=== PATIENT | male | born 1950 | race Caucasian/White ===

== ENCOUNTER 2019-02-11 03:07 | Inpatient (IN) | payer MEDICARE, BC ==
[2019-02-11] MEDS ORDERED: Metoclopramide 10 MG/2 ML SDV IVPUSH ONE (03:54)
[2019-02-11] MEDS ORDERED: HYDROmorphone 1 MG/ML Syringe IVPUSH ONE (03:54)
--- NOTE | 2019-02-11 03:59 | EDM.PDOC ---
ED HPI GENERAL MEDICAL PROBLEM - General Chief Complaint: Fever Stated Complaint: FEVER/SPOT BY LEFT HIP Time Seen by Provider: 02/11/19 03:53 Source of Information: Reports: Patient, Family (spouse) History Limitations: Reports: No Limitations - History of Present Illness INITIAL COMMENTS - FREE TEXT/NARRATIVE: 68-year-old male presents to the ED in the accompaniment of his . History suggests that he started to have left buttock hip pain about 2 days ago. Last 12 hours the pain has increased immensely to the point that he has difficulty walking and has had to revert to using his walker from a cane. He cannot lie or touch his left posterior buttock hip area. Patient had a fall on December 31 with an impacted femoral neck fracture on the left side. He underwent open reduction and internal fixation by Dr. Maurice on 06 January The wound has been healing very well and he was recovering very well from the surgery with very little discomfort. Over the last 12 hours the left posterior hip area has become erythematous and extremely tender to touch. Patient is also developed fever chills and rigors with the last bout about 2 hours ago. Unable to sleep due to the pain. Current pain is 8 out of 10. Onset: Gradual Onset Date: 02/08/19 Duration: Day(s):, Constant, Getting Worse Location: Reports: Lower Extremity, Left (Left hip posterior to his) Quality: Reports: Ache ( surgical wound from total hip replacement 5 weeks ago) , Pressure, Throbbing Severity: Severe Improves with: Reports: Rest (8-9 out of 10) Worsens with: Reports: Other (Or touching the area.), Movement Context: Reports: Other. Denies: Activity, Exercise, Lifting, Sick Contact, Trauma Associated Symptoms: Reports: Cough, cough w sputum, Fever/Chills, Loss of Appetite, Malaise, Nausea/Vomiting, Weakness (Mild nausea). 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 Left Hip Pain Score (Numeric/FACES): 8 - Related Data Allergies Allergy/AdvReac Type Severity Reaction Status Date / Time morphine Allergy Difficulty Verified 02/11/19 03:49 Breathing Home Meds: Home Meds Aspirin 325 mg PO DAILY 02/11/19 [History] Gabapentin [Neurontin] 300 mg PO DAILY 02/11/19 [History] Multivitamin [Multivitamins] 1 cap PO DAILY 02/11/19 [History] Naproxen Sodium [Aleve] 220 mg PO Q6H 02/11/19 [History] Past Medical History HEENT History: Reports: Hard of Hearing, Impaired Vision Cardiovascular History: Reports: High Cholesterol Other Cardiovascular History: statins made muscle aches Respiratory History: Reports: None Gastrointestinal History: Reports: GERD, Other (See Below) Other Gastrointestinal History: Inguinal hernia Genitourinary History: Reports: Other (See Below) Other Genitourinary History: prostate cancer- had surgery- clear Musculoskeletal History: Reports: Other (See Below) Other Musculoskeletal History: back surgery; 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 Neurological History: Reports: Other (See Below) (left foot drop--since lumbar spine surgery in May 2018.) Oncologic (Cancer) History: Reports: Prostate - Past Surgical History HEENT Surgical History: Reports: Naso-Sinus Surgery GI Surgical History: Reports: Hernia, Inguinal Other Male Surgeries/Procedures: prostate cancer Neurological Surgical History: Reports: Other (See Below) (back surgery) Musculoskeletal Surgical History: Reports: Shoulder Surgery, Other (See Below) ( 2 ring finger amputations and ankle) Social & Family History - Family History Cardiac: Reports: Hypertension (Both parents had HTN) Other Cardiac Family History: Brother had stroke Neurological: Reports: CVA - Caffeine Use Caffeine Use: Reports: Coffee Other Caffeine Use: 2-3 cups - Living Situation & Occupation Occupation: Retired ED ROS GENERAL - Review of Systems Review Of Systems: See Below Constitutional: Reports: Fever, Chills, Malaise, Weakness, Fatigue, Decreased Appetite HEENT: Reports: No Symptoms Respiratory: Reports: Shortness of Breath, Cough, Sputum. Denies: Pleuritic Chest Pain, Hemoptysis (Mostly clear sputum) Cardiovascular: Reports: Edema (Mild on the left side). Denies: Chest Pain, Blood Pressure Problem, Claudication, Dyspnea on Exertion, Lightheadedness, Orthopnea Endocrine: Reports: Fatigue GI/Abdominal: Reports: Decreased Appetite (Last couple of days) : Reports: Frequency, Other (Nocturia usually 1 or 2) Musculoskeletal: Reports: Joint Pain (Currently having a lot of pain in his left hip), Other (Chronic low back pain. 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 He had L4-L5 disc herniation. Has a chronic left foot drop.) Skin: Reports: Other (Erythema and swelling posterior to the left hip wound over the last 2 days.) Neurological: Reports: Difficulty Walking (Due to chronic left foot drop. Uses a cane and has reverted back to a walker the last 2 days.) Psychiatric: Reports: No Symptoms Hematologic/Lymphatic: Reports: No Symptoms Immunologic: Reports: No Symptoms ED EXAM, SEPSIS - Physical Exam Exam: See Below Exam Limited By: No Limitations General Appearance: Alert, WD/WN, No Apparent Distress, Other (Patient is febrile. Warm to palpation. Nurses record temperatures 36.6 which is not accurate. Resting tachycardia 1 15/m. Respiratory rate of 22-24/m with O2 sats of 91-92% on room air. BP is 118/69) Eye Exam: Bilateral Eye: Normal Inspection Throat/Mouth: Normal Inspection, Normal Lips, Normal Oropharynx Head: Atraumatic, Normocephalic Neck: Normal Inspection, Supple, Non-Tender, Full Range of Motion. No: Carotid Bruit, Lymphadenopathy (L), Lymphadenopathy (R), Thyromegaly Respiratory/Chest: No Accessory Muscle Use, Respiratory Distress (Mild tachypnea presumably due to fever), Rhonchi (Scattered rhonchi both upper lobes that clear with coughing.). No: Normal Breath Sounds, Wheezing Cardiovascular: No Gallop, No Murmur, No Rub, Tachycardia (Resting tachycardia at 1 15/m.). No: Normal Peripheral Pulses Peripheral Pulses: 2+: Posterior Tibial (L), Posterior Tibial (R), Dorsalis Pedis (L), Dorsalis Pedis (R) GI/Abdominal Exam: Normal Bowel Sounds, Soft, Non-Tender, No Organomegaly, No Abnormal Bruit, No Mass, Pelvis Stable (Male) Exam: No Hernia Back: Decreased Range of Motion ( surgical scar.), Vertebral Tenderness (Both sides of the lumbar spine are mildly tender to touch.), Other (Well-healed midline lower lumbar). No: CVA Tenderness (L), CVA Tenderness (R) Extremities: Other (Inspection of the left hip shows a recent surgical wound that appears to be healing very well. However surrounding this particular a posterior to the surgical wound is an area of erythema measuring 12 cm x 12 cm with a fluctuant feeling to this. The area is warm to touch and very tender to touch. Definite cellulitis questionable abscess under the skin.) Neurological: Alert, Oriented, CN II-XII Intact, Normal Cognition, Other ( Patient has a left foot drop chronicallyand walks with aid of a cane usually now he's walking with aid of a walker but putting any weight on the left hip causes immense pain). No: Normal Gait Psychiatric: Normal Affect, Normal Mood Skin: Warm, Dry, Intact, Erythema, Increased Warmth (Skin surrounding the posterior aspect of his left hip and buttock area.) EKG INTERPRETATION EKG Date: 02/11/19 Time: 04:03 Rhythm: Other (Sinus tachycardia) Rate (Beats/Min): 113 Sherrill: LAD-Left Sherrill Deviation (-76. Left anterior fascicular block pattern) P-Wave: Enlarged (Consider left atrial hypertrophy.) QRS: Other (Left ventricular hypertrophy pattern.) ST-T: Other (Diffuse early repolarization pattern most likely due to rate. No evidence of acute ischemic change.) QT: Prolonged (Mildly prolonged at 419.) EKG Interpretation Comments: Abnormal ECG Course - Vital Signs Last Recorded V/S: Last Vital Signs Temp 37.4 C 02/11/19 04:51 Pulse 115 H 02/11/19 03:43 Resp 22 H 02/11/19 03:43 BP 118/69 02/11/19 03:43 Pulse Ox 91 L 02/11/19 03:43 - Orders/Labs/Meds Orders: Active Orders 24 hr Category Date Time Status EKG Documentation Completion [RC] STAT Care 02/11/19 03:55 Active Oxygen Therapy [RC] ASDIRECTED Care 02/11/19 05:18 Active Hip wo Cont Lt [CT] Stat Exams 02/11/19 03:56 Taken CULTURE BLOOD [BC] Stat Lab 02/11/19 04:05 Received CULTURE BLOOD [BC] Stat Lab 02/11/19 04:18 Received URINALYSIS W/MICROSCOPIC [UA W/MICROSCOPIC] [URIN] Stat Lab 02/11/19 03:56 Ordered Dextrose 5%-0.9% NaCl [Dextrose 5%-Normal Saline] 1,000 Med 02/11/19 04:00 Active ml IV ASDIRECTED Blood Culture x2 Reflex Set [OM.PC] Stat Oth 02/11/19 03:55 Ordered Medication Orders Dextrose/Sodium Chloride (Dextrose 5%-Normal Saline) 1,000 mls @ 125 mls/hr IV ASDIRECTED AUGIE Last Admin: 02/11/19 04:09 Dose: 125 mls/hr Labs: Laboratory Tests 02/11/19 02/11/19 02/11/19 Range/Units 04:05 04:05 04:05 WBC 21.34 H (4.23-9.07) K/mm3 RBC 4.65 (4.63-6.08) M/mm3 Hgb 13.6 L D (13.7-17.5) gm/L Hct 39.8 L (40.1-51.0) % MCV 85.6 D (79.0-92.2) fl MCH 29.2 (25.7-32.2) pg MCHC 34.2 (32.2-35.5) g/dl RDW Std Deviation 47.7 H (35.1-43.9) fL Plt Count 249 (163-337) K/mm3 MPV 9.3 L (9.4-12.3) fl Neutrophils % (Manual) 67 H (40-60) % Band Neutrophils % 21 H (0-10) % Lymphocytes % (Manual) 3 L (20-40) % Atypical Lymphs % 0 % Monocytes % (Manual) 9 (2-10) % Eosinophils % (Manual) 0 L (0.8-7.0) % Basophils % (Manual) 0 L (0.2-1.2) Toxic Granulation 1+ slight Platelet Estimate Adequate Plt Morphology Comment Normal RBC Morph Comment Normal ESR (0-15) mm/hr PT 12.5 H (9.7-12.0) SECONDS INR 1.16 APTT 33 H (22-31) SECONDS Sodium 133 L (136-145) mEq/L Potassium 3.4 L (3.5-5.1) mEq/L Chloride 99 (98-107) mEq/L Carbon Dioxide 21 (21-32) mEq/L Anion Gap 16.4 H (5-15) BUN 19 H (7-18) mg/dL Creatinine 1.0 (0.7-1.3) mg/dL Est Cr Clr Drug Dosing 77.39 mL/min Estimated GFR (MDRD) > 60 (>60) mL/min BUN/Creatinine Ratio 19.0 H (14-18) Glucose 143 H (80-115) mg/dL Lactic Acid (0.4-2.0) mmol/L Calcium 8.3 L (8.5-10.1) mg/dL Magnesium 1.5 L (1.8-2.4) mg/dl Total Bilirubin 0.7 (0.2-1.0) mg/dL AST 14 L (15-37) U/L ALT 32 (16-63) U/L Alkaline Phosphatase 99 (46-116) U/L C-Reactive Protein 19.8 H* (<1.0) mg/dL NT-Pro-B Natriuret Pep (0-125) pg/mL Total Protein 7.0 (6.4-8.2) g/dl Albumin 3.3 L (3.4-5.0) g/dl Globulin 3.7 gm/dL Albumin/Globulin Ratio 0.9 L (1-2) 02/11/19 02/11/19 02/11/19 Range/Units 04:05 04:05 04:05 WBC (4.23-9.07) K/mm3 RBC (4.63-6.08) M/mm3 Hgb (13.7-17.5) gm/L Hct (40.1-51.0) % MCV (79.0-92.2) fl MCH (25.7-32.2) pg MCHC (32.2-35.5) g/dl RDW Std Deviation (35.1-43.9) fL Plt Count (163-337) K/mm3 MPV (9.4-12.3) fl Neutrophils % (Manual) (40-60) % Band Neutrophils % (0-10) % Lymphocytes % (Manual) (20-40) % Atypical Lymphs % % Monocytes % (Manual) (2-10) % Eosinophils % (Manual) (0.8-7.0) % Basophils % (Manual) (0.2-1.2) Toxic Granulation Platelet Estimate Plt Morphology Comment RBC Morph Comment ESR 23 H (0-15) mm/hr PT (9.7-12.0) SECONDS INR APTT (22-31) SECONDS Sodium (136-145) mEq/L Potassium (3.5-5.1) mEq/L Chloride (98-107) mEq/L Carbon Dioxide (21-32) mEq/L Anion Gap (5-15) BUN (7-18) mg/dL Creatinine (0.7-1.3) mg/dL Est Cr Clr Drug Dosing mL/min Estimated GFR (MDRD) (>60) mL/min BUN/Creatinine Ratio (14-18) Glucose (80-115) mg/dL Lactic Acid 1.1 (0.4-2.0) mmol/L Calcium (8.5-10.1) mg/dL Magnesium (1.8-2.4) mg/dl Total Bilirubin (0.2-1.0) mg/dL AST (15-37) U/L ALT (16-63) U/L Alkaline Phosphatase (46-116) U/L C-Reactive Protein (<1.0) mg/dL NT-Pro-B Natriuret Pep 386 H (0-125) pg/mL Total Protein (6.4-8.2) g/dl Albumin (3.4-5.0) g/dl Globulin gm/dL Albumin/Globulin Ratio (1-2) Meds: Medications Generic Name Dose Route Start Last Admin Trade Name Freq PRN Reason Stop Dose Admin Dextrose/Sodium Chloride 1,000 mls @ 125 mls/hr 02/11/19 04:00 02/11/19 04:09 Dextrose 5%-Normal Saline IV 125 mls/hr ASDIRECTED AUGIE Administration Discontinued Medications Generic Name Dose Route Start Last Admin Trade Name Freq PRN Reason Stop Dose Admin Acetaminophen 975 mg 02/11/19 04:01 02/11/19 04:51 Tylenol PO 02/11/19 04:02 975 mg ONETIME ONE Administration Hydromorphone HCl 1 mg 02/11/19 03:54 02/11/19 04:09 Dilaudid IVPUSH 02/11/19 03:55 1 mg ONETIME ONE Administration Linezolid 600 mg/ Premix 300 mls @ 300 mls/hr 02/11/19 04:27 02/11/19 04:51 IV 02/11/19 05:26 300 mls/hr ONETIME ONE Administration Vancomycin HCl 2 gm/ Sodium 500 mls @ 250 mls/hr 02/11/19 05:19 02/11/19 06: 07 Chloride IV 02/11/19 05:20 250 mls/hr ONETIME ONE Administration Metoclopramide HCl 10 mg 02/11/19 03:54 02/11/19 04:07 Reglan IVPUSH 02/11/19 03:55 10 mg ONETIME ONE Administration - Radiology Interpretation Free Text/Narrative:: 68-year-old male presents to the ED for evaluation of increased pain and swelling and erythema surrounding his left hip and buttock area. Patient fell and broke his left hip i.e. femoral neck fracture December 31. It was repaired January [address] Maurice orthopedic surgeon. Patient had been recovering well up until last 2 days when he started to have increased pain swelling and now erythema over the last 12 hours in the distribution of his left buttock and hip wound. He 's had to revert to using a walker from a cane. He's developed fever chills with rigors over the last 12 hours on 2 occasions. Spoke to severe chills was 2 hours ago. I'll and tachycardic at rest. Her pressure is satisfactory at present. Plan he will have a septic workup carried out. He'll be prepped for likely need for surgical drainage of his wound. Current pain is 8 out of 10. He will be given Dilaudid 1 mg IV with Reglan 10 mg IV for pain relief. His O2 sats are not the best at 91-92% suggesting is underlying COPD. He has a cough bringing up some clear sputum. Chest x-ray and ECG will be done preoperatively. IV will be D5 normal saline at 125 mils per hour. He'll be given Tylenol 975 mg by mouth for fever relief. Initial dose of antibiotic will be Zyvox 600 mg IV until he can establish his renal function - Re-Assessments/Exams Free Text/Narrative Re-Assessment/Exam: 02/11/19 05:11 Labs reveal an elevated white count at 21,34 with a left shift of 67% neutrophils and 21% band cells. Hemoglobin is 13.6 with hematocrit of 39.8. Reticulocyte count is 249,000. PT is 12.5 with an INR 1.16. PTT is 33. Sodium is low at 133 with a potassium slightly low at 3.4. Chloride is 99 with a bicarbonate of 21. Anion gap is 16.4. B1 is 19. Creatinine is 1.0 GFR is greater than 60. Glucose is 143. Lactic acid 1.1. Calcium is 8.3 with a magnesium slightly low at 1.5. Liver function is normal. C-reactive protein is pending. BNP is mildly elevated at 386. Total protein is 7.0 with an albumin fraction slightly low at 3.3. Chest x-ray done portably suggests an infiltrate in the right middle lobe when compared to x-ray done previously. Is also bit of haziness the left lower lobe which I suspect is more due to atelectasis. Cannot rule out pneumonia however CT of the left hip is difficult for me to interpret due to artifact from the left hip hemiarthroplasty. I will await the radiologist 's report in regards to soft tissue infection surrounding the joint. 02/11/19 06:07 sedimentation rate is 23. C-reactive protein is 19.8. Radiologist report is now available on his CT of left hip. Total hip arthroplasty is present. It creates artifact degrading evaluation . It appears to be in satisfactory position and alignment no. Is no osseous erosion or cortical destruction. The sacroiliac demonstrates mild periarticular osteophyte formation. Lower lumbar spondylosis is partially visualized. There is mild subcutaneous edema laterally over the hip. Deep to this in the gluteus musculature is a somewhat ill-defined collection measuring up to approximate 5.7 x 3.9 cm in the axial plane and 11 cm craniocaudad. It is probably higher than fluid density and could represent hematoma or phlegmon it is difficult to evaluate for a walled off collection without contrast. Therefore it appears this is his major source of infection and it is going to need incision and drainage. I will be in contact with Dr. Maurice at 0630 hrs. this morning 02/11/19 07:00: Dr. Maurice dropped in and did see the patient in consultation and will arrange admission to the hospital. He will consult Dr. Leblanc in regards to antibiotic coverage etc. Departure - Departure Time of Disposition: 07:18 Disposition: Admitted As Inpatient 68 Condition: Fair Clinical Impression: Abscess of left buttock, Neutrophilic leukocytosis, Acute febrile illness - Discharge Information *PRESCRIPTION DRUG MONITORING PROGRAM REVIEWED*: Not Applicable *COPY OF PRESCRIPTION DRUG MONITORING REPORT IN PATIENT MILDRED: Not Applicable Referrals: Justyna Nuno MD [Primary Care Provider] - Forms: ED Department Discharge - My Orders Last 24 Hours: My Active Orders 02/11/19 03:55 EKG Documentation Completion [RC] STAT Blood Culture x2 Reflex Set [OM.PC] Stat 02/11/19 03:56 Hip wo Cont Lt [CT] Stat URINALYSIS W/MICROSCOPIC [UA W/MICROSCOPIC] [URIN] Stat 02/11/19 04:00 Dextrose 5%-0.9% NaCl [Dextrose 5%-Normal Saline] 1,000 ml IV ASDIRECTED 02/11/19 04:05 CULTURE BLOOD [BC] Stat 02/11/19 04:18 CULTURE BLOOD [BC] Stat 02/11/19 05:18 Oxygen Therapy [RC] ASDIRECTED - Assessment/Plan Last 24 Hours: My Active Orders 02/11/19 03:55 EKG Documentation Completion [RC] STAT Blood Culture x2 Reflex Set [OM.PC] Stat 02/11/19 03:56 Hip wo Cont Lt [CT] Stat URINALYSIS W/MICROSCOPIC [UA W/MICROSCOPIC] [URIN] Stat 02/11/19 04:00 Dextrose 5%-0.9% NaCl [Dextrose 5%-Normal Saline] 1,000 ml IV ASDIRECTED 02/11/19 04:05 CULTURE BLOOD [BC] Stat 02/11/19 04:18 CULTURE BLOOD [BC] Stat 02/11/19 05:18 Oxygen Therapy [RC] ASDIRECTED
[2019-02-11] MEDS ORDERED: Dextrose 5%-0.9% NaCl 1,000 ML IV SCH (04:00)
[2019-02-11] MEDS ORDERED: Acetaminophen 325 MG Tab PO ONE (04:01)
[2019-02-11] MEDS ORDERED: Linezolid 600 MG in Premix Bag 1 BAG IV ONE (04:27)
[2019-02-11] MEDS ORDERED: Vancomycin 2 GM in Sodium Chloride 0.9% 500 ML IV ONE (05:19)
--- NOTE | 2019-02-11 06:40 | CR ---
Chest: Frontal view of the chest was obtained. Comparison: Previous chest x-ray of 04/08/12. Heart size is within normal limits. Tortuous thoracic aorta is seen. Patchy areas of increased density are noted within the left base. Lungs otherwise are clear. Bony structures are grossly intact. Impression: 1. Patchy increased densities within the left base. Mild areas of pneumonia are possible. 2. Other incidental findings. Diagnostic code #3
--- NOTE | 2019-02-11 07:20 | CT ---
CT left hip Technique: Multiple axial sections through the left hip were obtained. Reconstructed coronal and sagittal images were obtained. Findings: Left hip prosthesis is seen which causes artifact. Components of the prosthesis are aligned. Mild soft tissue swelling is noted laterally and posteriorly. Inflammatory change is seen within the subcutaneous fat laterally and posteriorly. Findings are compatible with cellulitis. Additional confluent soft tissue density seen obscuring normal fat within the gluteus biju muscle. This most likely is due to myositis. No fluid collections are seen to indicate abscess at this time. No acute bony abnormality is seen. Impression: 1. Cellulitis within the subcutaneous tissues of the posterior and lateral left hip as well as adjacent skin thickening. Myositis most likely present within the left gluteus biju muscle. 2. Nothing is seen to indicate definite abscess at this time. Contrast study recommended if patient does not respond conservatively. 3. Left hip prosthesis. No acute bony abnormality is seen. Diagnostic code #3 I agree with preliminary report from [facility], finalized on 02/11/19, 6:27 AM Central Time [facility]
[2019-02-11] MEDS ORDERED: Metoprolol Tartrate 5 MG/5 ML SDV IVPUSH PRN (07:36)
[2019-02-11] MEDS ORDERED: hydrALAZINE 20 MG/ML SDV IVPUSH PRN (07:36)
[2019-02-11] MEDS ORDERED: LORazepam 2 MG/ML SDV IV PRN (07:37)
[2019-02-11] MEDS ORDERED: Albuterol/Ipratropium 3.0-0.5 MG/3 ML Neb Soln NEB PRN (07:37)
[2019-02-11] MEDS ORDERED: HYDROmorphone 0.5 MG/0.5 ML Syringe IVPUSH PRN (07:37)
[2019-02-11] MEDS ORDERED: Temazepam 15 MG Cap PO PRN (07:37)
[2019-02-11] MEDS ORDERED: Bisacodyl 5 MG Tab PO PRN (07:37)
[2019-02-11] MEDS ORDERED: Promethazine 6.25 MG in Sodium Chloride 0.9% 50 ML IV PRN (07:37)
[2019-02-11] MEDS ORDERED: Polyethylene Glycol 3350 Powder 17 GM Packet PO PRN (07:37)
--- NOTE | 2019-02-11 07:45 | PCM.CONS ---
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 He states he limps and not able to put weight on the affected extremity. He has difficulty lying flat and unable to stay on his left side. Patient carries a hx/o femoral neck fracture and had undergone ORIF at the end of December. He seems to be doing just fine after surgery but he states over the past 12 hours his wound has become edematous, erythematous and tender to palpation. Patient has been admitted under the services of the Orthopedic team. The Hospitalist service was consulted for medical and antibiotic management. Left Hip Pain Score (Numeric/FACES): 8 - Related Data Allergies/Adverse Reactions: Allergies Allergy/AdvReac Type Severity Reaction Status Date / Time morphine Allergy Difficulty Verified 02/11/19 03:49 Breathing Home Medications: Home Meds Aspirin 325 mg PO DAILY 02/11/19 [History] Gabapentin [Neurontin] 300 mg PO DAILY 02/11/19 [History] Multivitamin [Multivitamins] 1 cap PO DAILY 02/11/19 [History] Naproxen Sodium [Aleve] 220 mg PO Q6H 02/11/19 [History] Past Medical History HEENT History: Reports: Hard of Hearing, Impaired Vision Cardiovascular History: Reports: High Cholesterol Other Cardiovascular History: statins made muscle aches Respiratory History: Reports: None Gastrointestinal History: Reports: GERD, Other (See Below) Other Gastrointestinal History: Inguinal hernia Genitourinary History: Reports: Other (See Below) Other Genitourinary History: prostate cancer- had surgery- clear Musculoskeletal History: Reports: Other (See Below) Other Musculoskeletal History: back surgery; 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 Neurological History: Reports: Other (See Below) (left foot drop--since lumbar spine surgery in May 2018.) Oncologic (Cancer) History: Reports: Prostate - Infectious Disease History Infectious Disease History: Reports: Chicken Pox - Past Surgical History HEENT Surgical History: Reports: Naso-Sinus Surgery GI Surgical History: Reports: Hernia, Inguinal Other Male Surgeries/Procedures: prostate cancer Neurological Surgical History: Reports: Other (See Below) (back surgery) Musculoskeletal Surgical History: Reports: Shoulder Surgery, Other (See Below) ( 2 ring finger amputations and ankle) Social & Family History - Family History Family Medical History: Noncontributory Cardiac: Reports: Hypertension (Both parents had HTN) Other Cardiac Family History: Brother had stroke Neurological: Reports: CVA - Tobacco Use Smoking Status *Q: Light Tobacco Smoker Years of Tobacco use: 20 Packs/Tins Daily: 0.1 - Caffeine Use Caffeine Use: Reports: Coffee Other Caffeine Use: 2-3 cups - Recreational Drug Use Recreational Drug Use: No - Living Situation & Occupation Occupation: Retired H&P Review of Systems - Review of Systems: Review Of Systems: See Below General: Reports: Fever, Chills, Malaise, Weakness, Decreased Appetite HEENT: Reports: No Symptoms Pulmonary: Reports: Shortness of Breath, Cough, Sputum (clear) Cardiovascular: Denies: Dyspnea on Exertion, Edema, Lightheadedness Gastrointestinal: Denies: Abdominal Pain, Nausea, Vomiting Genitourinary: Reports: Frequency Musculoskeletal: Reports: Back Pain (chronic), Leg Pain, Joint Pain, Other ( limps on one side) Skin: Reports: Erythema, Change in Color Psychiatric: Reports: No Symptoms Neurological: Reports: Difficulty Walking, Weakness, Gait Disturbance. Denies: Confusion Hematologic/Lymphatic: Reports: No Symptoms Immunologic: Reports: No Symptoms Exam - Exam Exam: See Below - Vital Signs Vital Signs: Last Vital Signs Temp 37.4 C 02/11/19 04:51 Pulse 115 H 02/11/19 03:43 Resp 22 H 02/11/19 03:43 BP 118/69 02/11/19 03:43 Pulse Ox 91 L 02/11/19 03:43 Weight: 90.718 kg - Exam General: Alert, Oriented, Cooperative, Mild Distress HEENT: Conjunctiva Clear, EACs Clear, EOMI, Hearing Intact, Mucosa Moist & [place] , Nares Patent, Normal Nasal Septum, Posterior Pharynx Clear, Pupils Equal, Pupils Reactive Neck: Supple, Trachea Midline Lungs: Clear to Auscultation, Normal Respiratory Effort Cardiovascular: Regular Rate, Regular Rhythm GI/Abdominal Exam: Normal Bowel Sounds, Soft, Non-Tender, No Organomegaly, No Distention, No Abnormal Bruit (Male) Exam: Deferred Rectal (Males) Exam: Deferred Back Exam: Normal Inspection, Decreased Range of Motion Extremities: Normal Inspection, Normal Range of Motion, Non-Tender, No Pedal Edema, Normal Capillary Refill Peripheral Pulses: 2+: Posterior Tibial (L), Posterior Tibial (R), Dorsalis Pedis (L), Dorsalis Pedis (R) Skin: Warm, Dry, Intact, Wound Skin Alteration Location (Drawings Not To Scale): 1 - surgical site: dry, clean and intact. affected buttock: red, edema and tender on palpation 2 - mild red streak Neuro Extensive - Mental Status: Oriented x3, Normal Cognition, Memory Intact Neuro Extensive - Motor, Sensory, Reflexes: CN II-XII Intact (limited but grossly intact), Abnormal Gait, Other (baseline left foot drop) Psychiatric: Alert, Normal Affect, Normal Mood - Patient Data Lab Results Last 24 hrs: Laboratory Results - last 24 hr 02/11/19 02/11/19 02/11/19 Range/Units 04:05 04:05 04:05 WBC 21.34 H (4.23-9.07) K/mm3 RBC 4.65 (4.63-6.08) M/mm3 Hgb 13.6 L D (13.7-17.5) gm/L Hct 39.8 L (40.1-51.0) % MCV 85.6 D (79.0-92.2) fl MCH 29.2 (25.7-32.2) pg MCHC 34.2 (32.2-35.5) g/dl RDW Std Deviation 47.7 H (35.1-43.9) fL Plt Count 249 (163-337) K/mm3 MPV 9.3 L (9.4-12.3) fl Neutrophils % (Manual) 67 H (40-60) % Band Neutrophils % 21 H (0-10) % Lymphocytes % (Manual) 3 L (20-40) % Atypical Lymphs % 0 % Monocytes % (Manual) 9 (2-10) % Eosinophils % (Manual) 0 L (0.8-7.0) % Basophils % (Manual) 0 L (0.2-1.2) Toxic Granulation 1+ slight Platelet Estimate Adequate Plt Morphology Comment Normal RBC Morph Comment Normal ESR (0-15) mm/hr PT 12.5 H (9.7-12.0) SECONDS INR 1.16 APTT 33 H (22-31) SECONDS Sodium 133 L (136-145) mEq/L Potassium 3.4 L (3.5-5.1) mEq/L Chloride 99 (98-107) mEq/L Carbon Dioxide 21 (21-32) mEq/L Anion Gap 16.4 H (5-15) BUN 19 H (7-18) mg/dL Creatinine 1.0 (0.7-1.3) mg/dL Est Cr Clr Drug Dosing 77.39 mL/min Estimated GFR (MDRD) > 60 (>60) mL/min BUN/Creatinine Ratio 19.0 H (14-18) Glucose 143 H (80-115) mg/dL Lactic Acid (0.4-2.0) mmol/L Calcium 8.3 L (8.5-10.1) mg/dL Magnesium 1.5 L (1.8-2.4) mg/dl Total Bilirubin 0.7 (0.2-1.0) mg/dL AST 14 L (15-37) U/L ALT 32 (16-63) U/L Alkaline Phosphatase 99 (46-116) U/L C-Reactive Protein 19.8 H* (<1.0) mg/dL NT-Pro-B Natriuret Pep (0-125) pg/mL Total Protein 7.0 (6.4-8.2) g/dl Albumin 3.3 L (3.4-5.0) g/dl Globulin 3.7 gm/dL Albumin/Globulin Ratio 0.9 L (1-2) 02/11/19 02/11/19 02/11/19 Range/Units 04:05 04:05 04:05 WBC (4.23-9.07) K/mm3 RBC (4.63-6.08) M/mm3 Hgb (13.7-17.5) gm/L Hct (40.1-51.0) % MCV (79.0-92.2) fl MCH (25.7-32.2) pg MCHC (32.2-35.5) g/dl RDW Std Deviation (35.1-43.9) fL Plt Count (163-337) K/mm3 MPV (9.4-12.3) fl Neutrophils % (Manual) (40-60) % Band Neutrophils % (0-10) % Lymphocytes % (Manual) (20-40) % Atypical Lymphs % % Monocytes % (Manual) (2-10) % Eosinophils % (Manual) (0.8-7.0) % Basophils % (Manual) (0.2-1.2) Toxic Granulation Platelet Estimate Plt Morphology Comment RBC Morph Comment ESR 23 H (0-15) mm/hr PT (9.7-12.0) SECONDS INR APTT (22-31) SECONDS Sodium (136-145) mEq/L Potassium (3.5-5.1) mEq/L Chloride (98-107) mEq/L Carbon Dioxide (21-32) mEq/L Anion Gap (5-15) BUN (7-18) mg/dL Creatinine (0.7-1.3) mg/dL Est Cr Clr Drug Dosing mL/min Estimated GFR (MDRD) (>60) mL/min BUN/Creatinine Ratio (14-18) Glucose (80-115) mg/dL Lactic Acid 1.1 (0.4-2.0) mmol/L Calcium (8.5-10.1) mg/dL Magnesium (1.8-2.4) mg/dl Total Bilirubin (0.2-1.0) mg/dL AST (15-37) U/L ALT (16-63) U/L Alkaline Phosphatase (46-116) U/L C-Reactive Protein (<1.0) mg/dL NT-Pro-B Natriuret Pep 386 H (0-125) pg/mL Total Protein (6.4-8.2) g/dl Albumin (3.4-5.0) g/dl Globulin gm/dL Albumin/Globulin Ratio (1-2) Result Diagrams: 02/12/19 05:50 02/12/19 05:50 Consult PN Assessment/Plan POD#: 0 Procedures: Procedures BL SMEAR W/DIFF WBC COUNT (12/31/18) BLOOD TYPING SEROLOGIC ABO (12/31/18) BLOOD TYPING SEROLOGIC RH(D) (12/31/18) CATARACT SURG W/IOL 1 STAGE (03/26/16) COMPLETE CBC AUTOMATED (12/31/18) COMPLETE CBC W/AUTO DIFF WBC (12/31/18) COMPREHEN METABOLIC PANEL (12/31/18) ELECTROCARDIOGRAM TRACING (12/31/18) EMERGENCY DEPT VISIT (12/31/18) GAIT TRAINING THERAPY (12/31/18) MEASURE BLOOD OXYGEN LEVEL (12/31/18) MEASURE BLOOD OXYGEN LEVEL (12/31/18) MR-STAPH DNA AMP PROBE (12/31/18) MRI LUMBAR SPINE W/O DYE (11/23/18) PROTHROMBIN TIME (12/31/18) PT EVAL LOW COMPLEX 20 MIN (12/31/18) RBC ANTIBODY SCREEN (12/31/18) ROUTINE VENIPUNCTURE (12/31/18) THER/PROPH/DIAG INJ IV PUSH (12/31/18) THERAPEUTIC ACTIVITIES (12/31/18) THROMBOPLASTIN TIME PARTIAL (12/31/18) TX/PRO/DX INJ NEW DRUG ADDON (12/31/18) URINALYSIS AUTO W/SCOPE (12/31/18) X-RAY EXAM HIP UNI 1 VIEW (12/31/18) X-RAY EXAM HIP UNI 2-3 VIEWS (12/31/18) X-RAY EXAM OF SKULL (11/23/18) Problem List Initiated/Reviewed/Updated: Yes My Orders Last 24 Hours: My Active Orders 02/11/19 07:36 Metoprolol Tartrate [Lopressor] 5 mg IVPUSH Q4H PRN hydrALAZINE [Apresoline] 20 mg IVPUSH Q4H PRN 02/11/19 07:37 Cardiac Monitoring [RC] CONTINUOUS Height and Weight [RC] DAILY Intake and Output [RC] QSHIFT Oxygen Therapy [RC] PRN Up With Assistance [RC] ASDIRECTED VTE/DVT Education [RC] PER UNIT ROUTINE Vital Signs [RC] Q4H Consult to Case Management/Environmental Systems Coordinator [CONS] Routine Consult to Spiritual Care [CONS] Routine OT Evaluation and Treatment [CONS] Routine PT Evaluation and Treatment [CONS] Routine CULTURE URINE [RM] Stat Acetaminophen [Tylenol] 650 mg PO Q4H PRN Albuterol/Ipratropium [DuoNeb 3.0-0.5 MG/3 ML] 3 ml NEB Q4H PRN Bisacodyl [Dulcolax] 5 mg PO DAILY PRN Docusate Sodium [Colace] 100 mg PO BID PRN Docusate Sodium/Sennosides [Senna Plus] 1 tab PO BID PRN HYDROmorphone [Dilaudid] 0.5 mg IVPUSH Q2H PRN LORazepam [Ativan] 0.5 mg IV Q6H PRN Ondansetron [Zofran] 4 mg IV Q6H PRN Polyethylene Glycol 3350 [MiraLAX] 17 gm PO DAILY PRN Promethazine [Phenergan] 6.25 mg Sodium Chloride 0.9% [Normal Saline] 50 ml IV Q6H Temazepam [Restoril] 15 mg PO BEDTIME PRN oxyCODONE 5 mg PO Q4H PRN Resuscitation Status Routine 02/11/19 07:40 RT Aerosol Therapy [RC] ASDIRECTED 02/11/19 07:45 Lactated Ringers @ 125 MLS/HR(1000ml) Lactated Ringers [Ringers, Lactated] 1, 000 ml IV ASDIRECTED 02/11/19 09:00 Gabapentin [Neurontin] 300 mg PO DAILY Multivitamin [Multivitamins] 1 cap PO DAILY Pantoprazole [ProTONIX IV] 40 mg IV Q12HR 02/11/19 Breakfast Nothing per Oral Now Diet [DIET] 02/12/19 05:11 BASIC METABOLIC PANEL,BMP [CHEM] AM C-REACTIVE PROTEIN [CHEM] AM CBC WITH AUTO DIFF [HEME] AM MAGNESIUM [CHEM] AM 02/13/19 05:11 BASIC METABOLIC PANEL,BMP [CHEM] AM C-REACTIVE PROTEIN [CHEM] AM CBC WITH AUTO DIFF [HEME] AM MAGNESIUM [CHEM] AM 02/14/19 05:11 BASIC METABOLIC PANEL,BMP [CHEM] AM C-REACTIVE PROTEIN [CHEM] AM CBC WITH AUTO DIFF [HEME] AM MAGNESIUM [CHEM] AM 02/15/19 05:11 BASIC METABOLIC PANEL,BMP [CHEM] AM C-REACTIVE PROTEIN [CHEM] AM CBC WITH AUTO DIFF [HEME] AM MAGNESIUM [CHEM] AM 02/16/19 05:11 BASIC METABOLIC PANEL,BMP [CHEM] AM C-REACTIVE PROTEIN [CHEM] AM CBC WITH AUTO DIFF [HEME] AM MAGNESIUM [CHEM] AM Plan: Assessment: Acute: Sepsis - Meets criteria: temp of 38.7, HR > 90, and RR of > 20 - 2/2 SSTI/Cellulitis and PNA - WBC of 21.34K, CRP of 19.8 - Sepsis treatment SSTI/Left Hip - At the surgical site - Recently had hip surgery - Affected Buttock: red, tender, edematous - No blisters or, scabs noted - Mild erythema: runs down to his anterior thigh all he way up knee - Received IV Linezolid and Vancomycin - Recommend IV Zosyn and Continue Vancomycin for pharmacy to dose CAP - Productive Clear Cough and SOB - CXR report rad as patchy areas of increased density are noted within the left base - IV antibiotics as above - Sputum Cx - Decongestant/Expectorant, IS as directed and PRN Supplemental O2 as needed - Consider adding Levaquin if no response to treatment - RT to assess and treat Electrolytes Abnormality - Hypokalemia - K of 3.4 - 2/2 Inadequate Intake - Replete and monitor - Hypomagnesemia - Mg of 1.5 - 2/2 Inadequate Intake - Replete and monitor Chronic: Impaired Hearing/Vision, HLD, GERD, Inguinal Hernia, Prostate CA S/p Surgery, Hx/o Back Surgery, 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 Thank you for the opportunity to participate in the manage of this patient. We will follow him along with with. Requesting Provider: Dr. Maurice Date Consult Requested: 02/11/19 Reason for Consult: Antibiotic Management Patient History Reviewed: Yes Admission H&P Reviewed: Yes Notified Requestor: Yes Time Spent (in minutes): 25
[2019-02-11] MEDS ORDERED: Piperacillin/Tazobactam 4.5 GM in Sodium Chloride 0.9% 100 ML IV ONE (09:00)
--- NOTE | 2019-02-11 09:33 | PCM.PREANE ---
Preanesthetic Assessment - Anesthesia/Transfusion/Family Hx Anesthesia History: Prior Anesthesia Reaction (nausea and vomiting) Other Type of Anesthesia Reaction Comment: nausea and vomiting with general Family History of Anesthesia Reaction: No Transfusion History: No Prior Transfusion(s) Type of Transfusion Reactions: Reports: Other (see below) - Review of Systems General: Weakness, Fatigue Pulmonary: No Symptoms, Other (chest X-ray 02/10/2019 left base increased densities mildareas of penmonia possible) Cardiovascular: No Symptoms (lung bases clear on oscultation) Gastrointestinal: No Symptoms Neurological: Numbness (left foot), Tingling (left foot), Difficulty Walking ( cane), Gait Disturbance (from back surgery) Other: Reports: Easy Bruising - Physical Assessment NPO Status Date: 02/10/19 NPO Status Time: 06:00 Vital Signs: Last Vital Signs Temp 36.8 C 02/11/19 08:25 Pulse 90 02/11/19 08:25 Resp 20 02/11/19 08:25 BP 105/63 02/11/19 08:25 Pulse Ox 94 L 02/11/19 08:25 Height: 1.8 m Weight: 90.718 kg ASA Class: 2 Mental Status: Alert & Oriented x3 Airway Class: Mallampati = 1 Dentition: Reports: Normal Dentition, [place](s) Thyro-Mental Finger Breadths: 3 Mouth Opening Finger Breadths: 3 ROM/Head Extension: Full Lungs: Clear to Auscultation, Normal Respiratory Effort Cardiovascular: Regular Rate, Regular Rhythm - Lab Values: Laboratory Last Values WBC 21.34 K/mm3 (4.23-9.07) H 02/11/19 04:05 RBC 4.65 M/mm3 (4.63-6.08) 02/11/19 04:05 Hgb 13.6 gm/L (13.7-17.5) L D 02/11/19 04:05 Hct 39.8 % (40.1-51.0) L 02/11/19 04:05 MCV 85.6 fl (79.0-92.2) D 02/11/19 04:05 MCH 29.2 pg (25.7-32.2) 02/11/19 04:05 MCHC 34.2 g/dl (32.2-35.5) 02/11/19 04:05 RDW Std Deviation 47.7 fL (35.1-43.9) H 02/11/19 04:05 Plt Count 249 K/mm3 (163-337) 02/11/19 04:05 MPV 9.3 fl (9.4-12.3) L 02/11/19 04:05 Neutrophils % (Manual) 67 % (40-60) H 02/11/19 04:05 Band Neutrophils % 21 % (0-10) H 02/11/19 04:05 Lymphocytes % (Manual) 3 % (20-40) L 02/11/19 04:05 Atypical Lymphs % 0 % 02/11/19 04:05 Monocytes % (Manual) 9 % (2-10) 02/11/19 04:05 Eosinophils % (Manual) 0 % (0.8-7.0) L 02/11/19 04:05 Basophils % (Manual) 0 (0.2-1.2) L 02/11/19 04:05 Toxic Granulation 1+ slight 02/11/19 04:05 Platelet Estimate Adequate 02/11/19 04:05 Plt Morphology Comment Normal 02/11/19 04:05 RBC Morph Comment Normal 02/11/19 04:05 ESR 23 mm/hr (0-15) H 02/11/19 04:05 PT 12.5 SECONDS (9.7-12.0) H 02/11/19 04:05 INR 1.16 02/11/19 04:05 APTT 33 SECONDS (22-31) H 02/11/19 04:05 Sodium 133 mEq/L (136-145) L 02/11/19 04:05 Potassium 3.4 mEq/L (3.5-5.1) L 02/11/19 04:05 Chloride 99 mEq/L (98-107) 02/11/19 04:05 Carbon Dioxide 21 mEq/L (21-32) 02/11/19 04:05 Anion Gap 16.4 (5-15) H 02/11/19 04:05 BUN 19 mg/dL (7-18) H 02/11/19 04:05 Creatinine 1.0 mg/dL (0.7-1.3) 02/11/19 04:05 Est Cr Clr Drug Dosing 77.39 mL/min 02/11/19 04:05 Estimated GFR (MDRD) > 60 mL/min (>60) 02/11/19 04:05 BUN/Creatinine Ratio 19.0 (14-18) H 02/11/19 04:05 Glucose 143 mg/dL (80-115) H 02/11/19 04:05 Lactic Acid 1.1 mmol/L (0.4-2.0) 02/11/19 04:05 Calcium 8.3 mg/dL (8.5-10.1) L 02/11/19 04:05 Magnesium 1.5 mg/dl (1.8-2.4) L 02/11/19 04:05 Total Bilirubin 0.7 mg/dL (0.2-1.0) 02/11/19 04:05 AST 14 U/L (15-37) L 02/11/19 04:05 ALT 32 U/L (16-63) 02/11/19 04:05 Alkaline Phosphatase 99 U/L (46-116) 02/11/19 04:05 C-Reactive Protein 19.8 mg/dL (<1.0) H* 02/11/19 04:05 NT-Pro-B Natriuret Pep 386 pg/mL (0-125) H 02/11/19 04:05 Total Protein 7.0 g/dl (6.4-8.2) 02/11/19 04:05 Albumin 3.3 g/dl (3.4-5.0) L 02/11/19 04:05 Globulin 3.7 gm/dL 02/11/19 04:05 Albumin/Globulin Ratio 0.9 (1-2) L 02/11/19 04:05 Urine Color Other (Yellow) H 02/11/19 07:42 Urine Appearance Slt cloudy (Clear) H 02/11/19 07:42 Urine pH 5.5 (5.0-8.0) 02/11/19 07:42 Ur Specific [place] > or = 1.030 (1.005-1.030) 02/11/19 07:42 Urine Protein 2+ (Negative) H 02/11/19 07:42 Urine Glucose (UA) Negative (Negative) 02/11/19 07:42 Urine Ketones Negative (Negative) 02/11/19 07:42 Urine Occult Blood Negative (Negative) 02/11/19 07:42 Urine Nitrite Negative (Negative) 02/11/19 07:42 Urine Bilirubin Negative (Negative) 02/11/19 07:42 Urine Urobilinogen 0.2 (0.2-1.0) 02/11/19 07:42 Ur Leukocyte Esterase Negative (Negative) 02/11/19 07:42 Urine RBC 0-5 /hpf (0-5) 02/11/19 07:42 Urine WBC 0-5 /hpf (0-5) 02/11/19 07:42 Ur Epithelial Cells 0-5 /hpf (0-5) 02/11/19 07:42 Urine Bacteria Few /hpf (FEW) 02/11/19 07:42 Urine Mucus Moderate /hpf (FEW) H 02/11/19 07:42 - Imaging/EKG Impressions: EKG 12/31/2018 Sinus rhythm rate 84 Left Ventricular hypertrophy - Allergies Allergies/Adverse Reactions: Allergies Allergy/AdvReac Type Severity Reaction Status Date / Time morphine Allergy Difficulty Verified 02/11/19 03:49 Breathing - Blood Blood Available: No Product(s) Available: None - Anesthesia Plan Pre-Op Medication Ordered: None - Acknowledgements Anesthesia Type Planned: General Anesthesia Pt an Appropriate Candidate for the Planned Anesthesia: Yes Alternatives and Risks of Anesthesia Discussed w Pt/Guardian: Yes Pt/Guardian Understands and Agrees with Anesthesia Plan: Yes PreAnesthesia Questionnaire HEENT History: Reports: Hard of Hearing, Impaired Vision Cardiovascular History: Reports: High Cholesterol Other Cardiovascular History: statins made muscle aches Respiratory History: Reports: None Gastrointestinal History: Reports: GERD, Other (See Below) Other Gastrointestinal History: Inguinal hernia Genitourinary History: Reports: Other (See Below) Other Genitourinary History: prostate cancer- had surgery- clear Musculoskeletal History: Reports: Other (See Below) Other Musculoskeletal History: back surgery; 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 Neurological History: Reports: Other (See Below) (left foot drop--since lumbar spine surgery in May 2018.) Oncologic (Cancer) History: Reports: Prostate - Infectious Disease History Infectious Disease History: Reports: Chicken Pox - Past Surgical History HEENT Surgical History: Reports: Naso-Sinus Surgery GI Surgical History: Reports: Hernia, Inguinal Other Male Surgeries/Procedures: prostate cancer Neurological Surgical History: Reports: Other (See Below) (back surgery) Musculoskeletal Surgical History: Reports: Shoulder Surgery, Other (See Below) ( 2 ring finger amputations and ankle) - SUBSTANCE USE Smoking Status *Q: Light Tobacco Smoker Tobacco Use Within Last Twelve Months: Cigars Days Per Week of Alcohol Use: 2 Number of Drinks Per Day: 2 Total Drinks Per Week: 4 Recreational Drug Use History: No - HOME MEDS Home Medications: Home Meds Aspirin 325 mg PO DAILY 02/11/19 [History] Gabapentin [Neurontin] 300 mg PO DAILY 02/11/19 [History] Multivitamin [Multivitamins] 1 cap PO DAILY 02/11/19 [History] Naproxen Sodium [Aleve] 220 mg PO Q6H 02/11/19 [History] - CURRENT (IN HOUSE) MEDS Current Meds: Current Medications Acetaminophen (Tylenol) 650 mg PO Q4H PRN PRN Reason: Pain (Mild 1-3)/fever Albuterol/Ipratropium (Duoneb 3.0-0.5 Mg/3 Ml) 3 ml NEB Q4H PRN PRN Reason: Shortness Of Breath/wheezing Bisacodyl (Dulcolax) 5 mg PO DAILY PRN PRN Reason: Constipation Docusate Sodium (Colace) 100 mg PO BID PRN PRN Reason: Constipation Gabapentin (Neurontin) 300 mg PO DAILY [place] Hydralazine HCl (Apresoline) 20 mg IVPUSH Q4H PRN PRN Reason: Hypertension Hydromorphone HCl (Dilaudid) 0.5 mg IVPUSH Q2H PRN PRN Reason: Pain (severe 7-10) Dextrose/Sodium Chloride (Dextrose 5%-Normal Saline) 1,000 mls @ 125 mls/hr IV ASDIRECTED [facility] Last Admin: 02/11/19 04:09 Dose: 125 mls/hr Lactated Ringer's (Ringers, Lactated) 1,000 mls @ 125 mls/hr IV ASDIRECTED [facility] Promethazine HCl 6.25 mg/ (Sodium Chloride) 50.25 mls @ 100 mls/hr IV Q6H PRN PRN Reason: Nausea/Vomiting Piperacillin Sod/Tazobactam (Sod 4.5 gm/ Sodium Chloride) 100 mls @ 200 mls/hr IV ONETIME ONE Stop: 02/11/19 09:29 Piperacillin Sod/Tazobactam (Sod 4.5 gm/ Sodium Chloride) 100 mls @ 25 mls/hr IV Q8H [facility] Vancomycin HCl 1 gm/Vancomycin HCl 500 mg/ Sodium Chloride 500 mls @ 250 mls/ hr IV Q12H [facility] Lorazepam (Ativan) 0.5 mg IV Q6H PRN PRN Reason: Anxiety Metoprolol Tartrate (Lopressor) 5 mg IVPUSH Q4H PRN PRN Reason: Tachycardia Multivitamins (Thera) 1 each PO DAILY [facility] Ondansetron HCl (Zofran) 4 mg IV Q6H PRN PRN Reason: Nausea/Vomiting Oxycodone HCl (Oxycodone) 5 mg PO Q4H PRN PRN Reason: Pain (moderate 4-6) Pantoprazole Sodium (Protonix) 40 mg PO Q12HR [facility] Polyethylene Glycol (Miralax) 17 gm PO DAILY PRN PRN Reason: Constipation Senna/Docusate Sodium (Senna Plus) 1 tab PO BID PRN PRN Reason: Constipation Temazepam (Restoril) 15 mg PO BEDTIME PRN PRN Reason: Sleep Vancomycin HCl (Pharmacy To Dose - Vancomycin) 1 dose .XX ASDIRECTED [facility] Discontinued Medications Acetaminophen (Tylenol) 975 mg PO ONETIME ONE Stop: 02/11/19 04:02 Last Admin: 02/11/19 04:51 Dose: 975 mg Hydromorphone HCl (Dilaudid) 1 mg IVPUSH ONETIME ONE Stop: 02/11/19 03:55 Last Admin: 02/11/19 04:09 Dose: 1 mg Linezolid 600 mg/ Premix 300 mls @ 300 mls/hr IV ONETIME ONE Stop: 02/11/19 05:26 Last Admin: 02/11/19 04:51 Dose: 300 mls/hr Vancomycin HCl 2 gm/ Sodium (Chloride) 500 mls @ 250 mls/hr IV ONETIME ONE Stop: 02/11/19 05:20 Last Admin: 02/11/19 06:07 Dose: 250 mls/hr Vancomycin HCl 500 mg/ Sodium (Chloride) 250 mls @ 166.667 mls/hr IV Q12H [facility] Metoclopramide HCl (Reglan) 10 mg IVPUSH ONETIME ONE Stop: 02/11/19 03:55 Last Admin: 02/11/19 04:07 Dose: 10 mg
[2019-02-11] MEDS: Multivitamins,Therapeutic Tab PO SCH (09:51)
[2019-02-11] MEDS: Pantoprazole 40 MG Tab.CR PO SCH ×2 (09:51→20:21)
[2019-02-11] MEDS: Gabapentin 300 MG Cap PO SCH (09:51)
[2019-02-11] MEDS ORDERED: Scopolamine 1.5 MG Transdermal Patch TOP ONE (10:19)
[2019-02-11] MEDS ORDERED: Rocuronium 50 MG/5 ML Vial ONE (12:34)
[2019-02-11] MEDS ORDERED: Midazolam 1 MG/ML 2 ML SDV ONE (12:34)
[2019-02-11] MEDS ORDERED: Dexamethasone 4 MG/ML 5 ML MDV ONE (12:34)
[2019-02-11] MEDS ORDERED: fentaNYL 250 MCG/5 ML SDV ONE (12:34)
[2019-02-11] MEDS ORDERED: Ondansetron 4 MG/2 ML SDV ONE (12:34)
[2019-02-11] MEDS ORDERED: Propofol 200 MG/20 ML SDV ONE ×2 (12:34→13:29)
[2019-02-11] MEDS ORDERED: Lactated Ringers 0 ML ONE (12:34)
[2019-02-11] MEDS ORDERED: Lidocaine 1% 2 ML ONE (12:37)
[2019-02-11] MEDS: Ondansetron 4 MG/2 ML SDV IV PRN (12:56)
[2019-02-11] MEDS: Lactated Ringers 1,000 ML IV SCH ×2 (12:56→18:45)
[2019-02-11] MEDS ORDERED: Scopolamine 1.5 MG Transdermal Patch TRDERM SCH (13:30)
[2019-02-11] MEDS ORDERED: Neostigmine Methylsulfate 1 MG/ML 5 ML Syringe ONE (13:57)
--- NOTE | 2019-02-11 14:15 | PCM.POSTAN ---
POST ANESTHESIA ASSESSMENT - MENTAL STATUS Mental Status: Alert, Oriented - VITAL SIGNS Vital Signs: Last Vital Signs Temp 36.3 C 02/11/19 12:00 Pulse 96 02/11/19 12:00 Resp 15 02/11/19 12:00 BP 121/68 02/11/19 12:00 Pulse Ox 100 02/11/19 12:00 - RESPIRATORY Respiratory Status: Respiratory Rate WNL, Airway Patent, O2 Saturation Stable - CARDIOVASCULAR CV Status: Pulse Rate WNL, Blood Pressure Stable - GASTROINTESTINAL GI Status: No Symptoms - PAIN Pain Score: 0 - POST OP HYDRATION Hydration Status: Adequate & Stable
--- NOTE | 2019-02-11 14:44 | PCM48HPAN ---
Post Anesthesia Note - EVALUATION WITHIN 48HRS OF ANESTHETIC Vital Signs in Normal Range: Yes Patient Participated in Evaluation: Yes Respiratory Function Stable: Yes Airway Patent: Yes Cardiovascular Function Stable: Yes Hydration Status Stable: Yes Pain Control Satisfactory: Yes Nausea and Vomiting Control Satisfactory: Yes Mental Status Recovered: Yes Vital Signs: Last Vital Signs Temp 36.3 C 02/11/19 12:00 Pulse 96 02/11/19 12:00 Resp 15 02/11/19 12:00 BP 121/68 02/11/19 12:00 Pulse Ox 100 02/11/19 12:00
[2019-02-11] MEDS: Piperacillin/Tazobactam 4.5 GM in Sodium Chloride 0.9% 100 ML IV SCH (16:33)
[2019-02-11] MEDS: Acetaminophen 325 MG Tab PO PRN ×2 (17:20→23:56)
[2019-02-11] MEDS: Vancomycin 1 GM, Vancomycin 500 MG in Sodium Chloride 0.9% 500 ML IV SCH (17:20)
[2019-02-11] MEDS ORDERED: Potassium Chloride 20 MEQ Tab.ER PO ONE (19:44)
[2019-02-11] MEDS ORDERED: Magnesium Sulfate/Water 4 GM in Premix Bag 1 BAG IV ONE (19:45)
[2019-02-11] MEDS ORDERED: Levofloxacin/Dextrose 5%-Water 750 MG in Premix Bag 1 BAG IV SCH (20:00)
[2019-02-11] MEDS: Heparin Sodium 5,000 Units/ML Vial SUBCUT SCH (20:14)
[2019-02-11] MEDS: guaiFENesin/Dextromethorphan 100-10 MG/5 ML Soln 5 ML Cup PO PRN (23:56)
[2019-02-12] MEDS: Lactated Ringers 1,000 ML IV SCH ×2 (02:27→11:41)
[2019-02-12] MEDS: Heparin Sodium 5,000 Units/ML Vial SUBCUT SCH ×3 (04:59→20:38)
[2019-02-12] MEDS: Vancomycin 1 GM, Vancomycin 500 MG in Sodium Chloride 0.9% 500 ML IV SCH ×3 (05:00→20:45)
[2019-02-12] MEDS: guaiFENesin/Dextromethorphan 100-10 MG/5 ML Soln 5 ML Cup PO PRN ×3 (08:07→17:18)
[2019-02-12] MEDS: Piperacillin/Tazobactam 4.5 GM in Sodium Chloride 0.9% 100 ML IV SCH ×4 (08:08→16:37)
[2019-02-12] MEDS: Gabapentin 300 MG Cap PO SCH (08:08)
[2019-02-12] MEDS: Ondansetron 4 MG/2 ML SDV IV PRN (08:08)
[2019-02-12] MEDS: Acetaminophen 325 MG Tab PO PRN ×3 (08:08→17:17)
[2019-02-12] MEDS: Multivitamins,Therapeutic Tab PO SCH (08:08)
[2019-02-12] MEDS: Pantoprazole 40 MG Tab.CR PO SCH ×2 (08:08→20:39)
[2019-02-12] MEDS ORDERED: LORazepam 1 MG Tab PO STA (09:59)
[2019-02-12] MEDS: oxyCODONE 5 MG Tab PO PRN ×3 (10:15→20:48)
[2019-02-12] MEDS: Nystatin Topical Powder 15 GM Bottle TOP SCH ×3 (10:15→20:38)
[2019-02-12] MEDS: valACYclovir 1,000 MG Tab PO SCH ×3 (10:16→20:39)
[2019-02-12] MEDS ORDERED: Sodium Chloride 0.9% 10 ML Syringe FLUSH PRN (13:59)
--- NOTE | 2019-02-12 15:42 | PCM.PN ---
- General Info Date of Service: 02/12/19 Admission Dx/Problem (Free Text): Admission Diagnosis/Problem Admission Diagnosis/Problem Acute febrile illness Functional Status: Reports: Other ( still bothersome) - Review of Systems General: Reports: Fever, Malaise, Chills, Night Sweats, Appetite HEENT: Reports: No Symptoms Pulmonary: Reports: No Symptoms Cardiovascular: Reports: No Symptoms Gastrointestinal: Reports: No Symptoms Genitourinary: Reports: No Symptoms Musculoskeletal: Reports: No Symptoms Skin: Reports: No Symptoms, Rash, Other (redness and painful rash over left hip. no vesicles / wound line dry and no purulance noted induration moderate ) Neurological: Reports: No Symptoms Psychiatric: Reports: No Symptoms - Patient Data Vitals - Most Recent: Last Vital Signs Temp 37.1 C 02/12/19 12:00 Pulse 86 02/12/19 12:00 Resp 15 02/12/19 12:00 BP 125/71 02/12/19 12:00 Pulse Ox 95 02/12/19 12:00 Weight - Most Recent: 90.718 kg I&O - Last 24 Hours: Intake & Output 02/12/19 02/12/19 02/12/19 06:59 14:59 22:59 Intake Total 2415 Output Total 700 Balance 1715 Lab Results Last 24 Hours: Laboratory Results - last 24 hr 02/12/19 02/12/19 Range/Units 05:50 05:50 WBC 17.71 H (4.23-9.07) K/mm3 RBC 3.90 L (4.63-6.08) M/mm3 Hgb 11.4 L D (13.7-17.5) gm/L Hct 34.4 L (40.1-51.0) % MCV 88.2 (79.0-92.2) fl MCH 29.2 (25.7-32.2) pg MCHC 33.1 (32.2-35.5) g/dl RDW Std Deviation 49.1 H (35.1-43.9) fL Plt Count 193 (163-337) K/mm3 MPV 9.2 L (9.4-12.3) fl Neut % (Auto) 86.9 H (34.0-67.9) % Lymph % (Auto) 4.6 L (21.8-53.1) % Mccracken % (Auto) 8.1 (5.3-12.2) % Eos % (Auto) 0.1 L (0.8-7.0) Baso % (Auto) 0.1 (0.1-1.2) % Neut # (Auto) 15.41 H (1.78-5.38) K/mm3 Lymph # (Auto) 0.81 L (1.32-3.57) K/mm3 M[place]racken # (Auto) 1.43 H (0.30-0.82) K/mm3 Eos # (Auto) 0.01 L (0.04-0.54) K/mm3 Baso # (Auto) 0.01 (0.01-0.08) K/mm3 Manual Slide Review Abnormal smear Sodium 134 L (136-145) mEq/L Potassium 4.2 (3.5-5.1) mEq/L Chloride 103 (98-107) mEq/L Carbon Dioxide 21 (21-32) mEq/L Anion Gap 14.2 (5-15) BUN 12 (7-18) mg/dL Creatinine 0.8 (0.7-1.3) mg/dL Est Cr Clr Drug Dosing 96.74 mL/min Estimated GFR (MDRD) > 60 (>60) mL/min BUN/Creatinine Ratio 15.0 (14-18) Glucose 106 (80-115) mg/dL Calcium 7.7 L (8.5-10.1) mg/dL Magnesium 2.2 (1.8-2.4) mg/dl C-Reactive Protein 25.6 H* (<1.0) mg/dL Jorge A Results Last 24 Hours: Microbiology 02/12/19 10:04 AIDAN Preparation - Final Skin / Skin Scrapings - Buttock, Unspecified 02/11/19 04:18 Aerobic Blood Culture - Preliminary Blood - Venous NO GROWTH AFTER 1 DAY Anaerobic Blood Culture - Preliminary NO GROWTH AFTER 1 DAY 02/11/19 04:05 Aerobic Blood Culture - Preliminary Blood - Venous - Lab Draw NO GROWTH AFTER 1 DAY Anaerobic Blood Culture - Preliminary NO GROWTH AFTER 1 DAY Med Orders - Current: Current Medications Acetaminophen (Tylenol) 650 mg PO Q4H PRN PRN Reason: Pain (Mild 1-3)/fever Last Admin: 02/12/19 12:15 Dose: 650 mg Albuterol/Ipratropium (Duoneb 3.0-0.5 Mg/3 Ml) 3 ml NEB Q4H PRN PRN Reason: Shortness Of Breath/wheezing Bisacodyl (Dulcolax) 5 mg PO DAILY PRN PRN Reason: Constipation Docusate Sodium (Colace) 100 mg PO BID PRN PRN Reason: Constipation Gabapentin (Neurontin) 300 mg PO DAILY [facility] Last Admin: 02/12/19 08:08 Dose: 300 mg Guaifenesin/Phenylephrine HCl (Robitussin Dm) 10 ml PO Q4H PRN PRN Reason: Cough Last Admin: 02/12/19 12:15 Dose: 10 ml Heparin Sodium (Porcine) (Heparin Sodium) 5,000 units SUBCUT Q8H [facility] Last Admin: 02/12/19 12:14 Dose: 5,000 units Hydralazine HCl (Apresoline) 20 mg IVPUSH Q4H PRN PRN Reason: Hypertension Hydromorphone HCl (Dilaudid) 0.5 mg IVPUSH Q2H PRN PRN Reason: Pain (severe 7-10) Lactated Ringer's (Ringers, Lactated) 1,000 mls @ 125 mls/hr IV ASDIRECTED [facility] Last Admin: 02/12/19 11:41 Dose: 125 mls/hr Promethazine HCl 6.25 mg/ (Sodium Chloride) 50.25 mls @ 100 mls/hr IV Q6H PRN PRN Reason: Nausea/Vomiting Piperacillin Sod/Tazobactam (Sod 4.5 gm/ Sodium Chloride) 100 mls @ 25 mls/hr IV Q8H [facility] Last Admin: 02/12/19 08:08 Dose: 25 mls/hr Vancomycin HCl 1 gm/Vancomycin HCl 500 mg/ Sodium Chloride 500 mls @ 250 mls/ hr IV Q12H [facility] Last Admin: 02/12/19 05:00 Dose: 250 mls/hr Lorazepam (Ativan) 0.5 mg IV Q6H PRN PRN Reason: Anxiety Metoprolol Tartrate (Lopressor) 5 mg IVPUSH Q4H PRN PRN Reason: Tachycardia Miscellaneous Information (Remove Patch) 0 ea TRDERM ONETIME ONE Stop: 02/14/19 13:31 Multivitamins (Thera) 1 each PO DAILY [facility] Last Admin: 02/12/19 08:08 Dose: 1 each Nystatin (Nystop) 1 gm TOP TID [facility] Last Admin: 02/12/19 15:01 Dose: 1 gm Ondansetron HCl (Zofran) 4 mg IV Q6H PRN PRN Reason: Nausea/Vomiting Last Admin: 02/12/19 08:08 Dose: 4 mg Oxycodone HCl (Oxycodone) 5 mg PO Q4H PRN PRN Reason: Pain (moderate 4-6) Last Admin: 02/12/19 10:15 Dose: 5 mg Pantoprazole Sodium (Protonix) 40 mg PO Q12HR [facility] Last Admin: 02/12/19 08:08 Dose: 40 mg Polyethylene Glycol (Miralax) 17 gm PO DAILY PRN PRN Reason: Constipation Scopolamine (Transderm-Scop) 1.5 mg TRDERM ONETIME [facility] Last Admin: 02/11/19 13:36 Dose: 1.5 mg Senna/Docusate Sodium (Senna Plus) 1 tab PO BID PRN PRN Reason: Constipation Sodium Chloride (Saline Flush) 10 ml FLUSH ASDIRECTED PRN PRN Reason: Keep Vein Open Temazepam (Restoril) 15 mg PO BEDTIME PRN PRN Reason: Sleep Valacyclovir HCl (Valtrex) 1,000 mg PO TID [facility] Last Admin: 02/12/19 15:01 Dose: 1,000 mg Vancomycin HCl (Pharmacy To Dose - Vancomycin) 0 dose .XX ASDIRECTED PRN PRN Reason: RX TO DOSE VANCOMYCIN Zolpidem Tartrate (Ambien) 5 mg PO BEDTIME [facility] Discontinued Medications Acetaminophen (Tylenol) 975 mg PO ONETIME ONE Stop: 02/11/19 04:02 Last Admin: 02/11/19 04:51 Dose: 975 mg Dexamethasone (Dexamethasone) Confirm Administered Dose 20 mg .ROUTE .STK-MED ONE Stop: 02/11/19 12:35 Fentanyl (Sublimaze) Confirm Administered Dose 250 mcg .ROUTE .STK-MED ONE Stop: 02/11/19 12:35 Glycopyrrolate () Confirm Administered Dose 1 mg .ROUTE .STK-MED ONE Stop: 02/11/19 13:58 Hydromorphone HCl (Dilaudid) 1 mg IVPUSH ONETIME ONE Stop: 02/11/19 03:55 Last Admin: 02/11/19 04:09 Dose: 1 mg Dextrose/Sodium Chloride (Dextrose 5%-Normal Saline) 1,000 mls @ 125 mls/hr IV ASDIRECTED [facility] Last Admin: 02/11/19 04:09 Dose: 125 mls/hr Linezolid 600 mg/ Premix 300 mls @ 300 mls/hr IV ONETIME ONE Stop: 02/11/19 05:26 Last Admin: 02/11/19 04:51 Dose: 300 mls/hr Vancomycin HCl 2 gm/ Sodium (Chloride) 500 mls @ 250 mls/hr IV ONETIME ONE Stop: 02/11/19 05:20 Last Admin: 02/11/19 06:07 Dose: 250 mls/hr Piperacillin Sod/Tazobactam (Sod 4.5 gm/ Sodium Chloride) 100 mls @ 200 mls/hr IV ONETIME ONE Stop: 02/11/19 09:29 Last Admin: 02/11/19 09:50 Dose: 200 mls/hr Vancomycin HCl 500 mg/ Sodium (Chloride) 250 mls @ 166.667 mls/hr IV Q12H [facility] Lactated Ringer's (Ringers, Lactated) Confirm Administered Dose 1,000 mls @ as directed .ROUTE .STK-MED ONE Stop: 02/11/19 12:35 Lidocaine HCl (Xylocaine-Mpf 1%) Confirm Administered Dose 2 mls @ as directed .ROUTE .STK-MED ONE Stop: 02/11/19 12:38 Magnesium Sulfate 4 gm/ Premix 50 mls @ 12.5 mls/hr IV ONETIME ONE Stop: 02/11/19 23:44 Last Admin: 02/11/19 20:23 Dose: 12.5 mls/hr Levofloxacin/Dextrose 750 mg/ (Premix) 150 mls @ 100 mls/hr IV Q24H [facility] Last Admin: 02/11/19 20:48 Dose: Not Given Lorazepam (Ativan) 1 mg PO NOW STA Stop: 02/12/19 10:00 Last Admin: 02/12/19 10:16 Dose: 1 mg Metoclopramide HCl (Reglan) 10 mg IVPUSH ONETIME ONE Stop: 02/11/19 03:55 Last Admin: 02/11/19 04:07 Dose: 10 mg Midazolam HCl (Versed 1 Mg/Ml) Confirm Administered Dose 2 mg .ROUTE .STK-MED ONE Stop: 02/11/19 12:35 Neostigmine Methylsulfate (Neostigmine) Confirm Administered Dose 5 mg .ROUTE .STK-MED ONE Stop: 02/11/19 13:58 Ondansetron HCl (Zofran) Confirm Administered Dose 4 mg .ROUTE .STK-MED ONE Stop: 02/11/19 12:35 Potassium Chloride (Klor-Con M20) 60 meq PO ONETIME ONE Stop: 02/11/19 19:45 Last Admin: 02/11/19 20:21 Dose: 60 meq Propofol (Diprivan 20 Ml) Confirm Administered Dose 200 mg .ROUTE .STK-MED ONE Stop: 02/11/19 12:35 Propofol (Diprivan 20 Ml) Confirm Administered Dose 400 mg .ROUTE .STK-MED ONE Stop: 02/11/19 13:30 Rocuronium [place] (Zemuron) Confirm Administered Dose 50 mg .ROUTE .STK-MED ONE Stop: 02/11/19 12:35 Scopolamine (Transderm-Scop) 1.5 mg TOP ONETIME ONE Stop: 02/11/19 10:20 Last Admin: 02/11/19 10:35 Dose: 1.5 mg Vancomycin HCl (Pharmacy To Dose - Vancomycin) 1 dose .XX ASDIRECTED [facility] - Exam General: Alert, Oriented HEENT: Pupils Equal, Pupils Reactive, EOMI, Mucous Membr. Moist/[place] Neck: Supple Lungs: Clear to Auscultation, Normal Respiratory Effort Cardiovascular: Regular Rate, Regular Rhythm GI/Abdominal Exam: Normal Bowel Sounds, Soft, Non-Tender, No Organomegaly, No Distention, No Abnormal Bruit, No Mass, Pelvis Stable (Male) Exam: Deferred. No: No Hernia, Normal Inspection, Normal Prostate, Circumcised Back Exam: Normal Inspection, Full Range of Motion Extremities: Normal Inspection, Normal Range of Motion, Non-Tender, No Pedal Edema, Normal Capillary Refill Skin: Warm, Dry, Intact, Rash, Other (induration and red blotchy rash without vesicles) Wound/Incisions: Healing Well Neurological: No New Focal Deficit Psy/Mental Status: Alert, Normal Affect, Normal Mood - Problem List & Annotations (1) Abscess or cellulitis of hip SNOMED Code(s): 000455291 Code(s): CWN1118 - Status: Acute Priority: High Current Visit: Yes Onset Date: 02/10/19 (2) Fracture of femoral neck, left, closed SNOMED Code(s): 630182966, 44839083591557188 Code(s): S72.002A - FRACTURE OF UNSP PART OF NECK OF LEFT FEMUR, INIT Status: Acute Current Visit: No Onset Date: 12/31/18 Qualifiers: Fracture healing: with routine healing - Problem List Review Problem List Initiated/Reviewed/Updated: Yes - My Orders Last 24 Hours: My Active Orders 02/12/19 10:00 valACYclovir [Valtrex] 1,000 mg PO TID 02/12/19 10:01 Nystatin [Nystop] 1 gm TOP TID 02/12/19 13:59 Sodium Chloride 0.9% [Saline Flush] 10 ml FLUSH ASDIRECTED PRN Convert IV to Saline Lock [OM.PC] Routine 02/12/19 21:00 Zolpidem [Ambien] 5 mg PO BEDTIME add valtrex 02/12/19 - Plan Plan:: teat for bacterial cellulitis and cont zosyn and vanco add valtrex but no vesicles seen in 48 hours he has been here cont sleep meds cont pain meds up as tolerated
[2019-02-12] MEDS ORDERED: Sodium Chloride 0.9% 500 ML IV ONE (17:57)
[2019-02-12] MEDS: Promethazine 25 MG Tab PO PRN (18:16)
--- NOTE | 2019-02-12 18:19 | PCM.SURGPN ---
- General Info Date of Service: 02/12/19 Functional Status: Reports: Pain Controlled, Tolerating Diet, Ambulating, Urinating, Other (The pt's was present at bedside.) - Patient Data Vitals - Most Recent: Last Vital Signs Temp 99.1 F 02/12/19 17:17 Pulse 89 02/12/19 15:49 Resp 15 02/12/19 15:49 BP 122/65 02/12/19 15:49 Pulse Ox 94 L 02/12/19 15:49 Weight - Most Recent: 200 lb I&O - Last 24 Hours: Intake & Output 02/12/19 02/12/19 02/12/19 06:59 14:59 22:59 Intake Total 2415 2720 Output Total 700 800 Balance 1715 1920 Lab Results Last 24 Hrs: Laboratory Results - last 24 hr 02/12/19 02/12/19 02/12/19 Range/Units 05:50 05:50 15:08 WBC 17.71 H (4.23-9.07) K/mm3 RBC 3.90 L (4.63-6.08) M/mm3 Hgb 11.4 L D (13.7-17.5) gm/L Hct 34.4 L (40.1-51.0) % MCV 88.2 (79.0-92.2) fl MCH 29.2 (25.7-32.2) pg MCHC 33.1 (32.2-35.5) g/dl RDW Std Deviation 49.1 H (35.1-43.9) fL Plt Count 193 (163-337) K/mm3 MPV 9.2 L (9.4-12.3) fl Neut % (Auto) 86.9 H (34.0-67.9) % Lymph % (Auto) 4.6 L (21.8-53.1) % [place] % (Auto) 8.1 (5.3-12.2) % Eos % (Auto) 0.1 L (0.8-7.0) Baso % (Auto) 0.1 (0.1-1.2) % Neut # (Auto) 15.41 H (1.78-5.38) K/mm3 Lymph # (Auto) 0.81 L (1.32-3.57) K/mm3 [place] # (Auto) 1.43 H (0.30-0.82) K/mm3 Eos # (Auto) 0.01 L (0.04-0.54) K/mm3 Baso # (Auto) 0.01 (0.01-0.08) K/mm3 Manual Slide Review Abnormal smear Sodium 134 L 136 (136-145) mEq/L Potassium 4.2 4.1 (3.5-5.1) mEq/L Chloride 103 102 (98-107) mEq/L Carbon Dioxide 21 22 (21-32) mEq/L Anion Gap 14.2 16.1 H (5-15) BUN 12 14 (7-18) mg/dL Creatinine 0.8 0.8 (0.7-1.3) mg/dL Est Cr Clr Drug Dosing 96.74 96.74 mL/min Estimated GFR (MDRD) > 60 > 60 (>60) mL/min BUN/Creatinine Ratio 15.0 17.5 (14-18) Glucose 106 134 H (80-115) mg/dL Calcium 7.7 L 8.4 L (8.5-10.1) mg/dL Magnesium 2.2 (1.8-2.4) mg/dl Total Bilirubin 0.4 (0.2-1.0) mg/dL AST 14 L (15-37) U/L ALT 24 (16-63) U/L Alkaline Phosphatase 84 (46-116) U/L C-Reactive Protein 25.6 H* (<1.0) mg/dL Total Protein 6.1 L (6.4-8.2) g/dl Albumin 2.4 L (3.4-5.0) g/dl Globulin 3.7 gm/dL Albumin/Globulin Ratio 0.7 L (1-2) Jorge A Results Last 24 Hrs: Microbiology 02/12/19 10:04 AIDAN Preparation - Final Skin / Skin Scrapings - Buttock, Unspecified 02/11/19 04:18 Aerobic Blood Culture - Preliminary Blood - Venous NO GROWTH AFTER 1 DAY Anaerobic Blood Culture - Preliminary NO GROWTH AFTER 1 DAY 02/11/19 04:05 Aerobic Blood Culture - Preliminary Blood - Venous - Lab Draw NO GROWTH AFTER 1 DAY Anaerobic Blood Culture - Preliminary NO GROWTH AFTER 1 DAY Med Orders - Current: Current Medications Acetaminophen (Tylenol) 650 mg PO Q4H PRN PRN Reason: Pain (Mild 1-3)/fever Last Admin: 02/12/19 17:17 Dose: 650 mg Albuterol/Ipratropium (Duoneb 3.0-0.5 Mg/3 Ml) 3 ml NEB Q4H PRN PRN Reason: Shortness Of Breath/wheezing Bisacodyl (Dulcolax) 5 mg PO DAILY PRN PRN Reason: Constipation Docusate Sodium (Colace) 100 mg PO BID PRN PRN Reason: Constipation Gabapentin (Neurontin) 300 mg PO DAILY [facility] Last Admin: 02/12/19 08:08 Dose: 300 mg Guaifenesin/Phenylephrine HCl (Robitussin Dm) 10 ml PO Q4H PRN PRN Reason: Cough Last Admin: 02/12/19 17:18 Dose: 10 ml Heparin Sodium (Porcine) (Heparin Sodium) 5,000 units SUBCUT Q8H [facility] Last Admin: 02/12/19 12:14 Dose: 5,000 units Hydralazine HCl (Apresoline) 20 mg IVPUSH Q4H PRN PRN Reason: Hypertension Hydromorphone HCl (Dilaudid) 0.5 mg IVPUSH Q2H PRN PRN Reason: Pain (severe 7-10) Lactated Ringer's (Ringers, Lactated) 1,000 mls @ 125 mls/hr IV ASDIRECTED [facility] Last Admin: 02/12/19 11:41 Dose: 125 mls/hr Promethazine HCl 6.25 mg/ (Sodium Chloride) 50.25 mls @ 100 mls/hr IV Q6H PRN PRN Reason: Nausea/Vomiting Piperacillin Sod/Tazobactam (Sod 4.5 gm/ Sodium Chloride) 100 mls @ 25 mls/hr IV Q8H [facility] Last Admin: 02/12/19 16:37 Dose: 25 mls/hr Sodium Chloride (Normal Saline) 500 mls @ 500 mls/hr IV .BOLUS ONE Stop: 02/12/19 18:56 Vancomycin HCl 1 gm/Vancomycin HCl 500 mg/ Sodium Chloride 500 mls @ 250 mls/ hr IV Q12H [facility] Lorazepam (Ativan) 0.5 mg IV Q6H PRN PRN Reason: Anxiety Metoprolol Tartrate (Lopressor) 5 mg IVPUSH Q4H PRN PRN Reason: Tachycardia Miscellaneous Information (Remove Patch) 0 ea TRDERM ONETIME ONE Stop: 02/14/19 13:31 Multivitamins (Thera) 1 each PO DAILY [facility] Last Admin: 02/12/19 08:08 Dose: 1 each Nystatin (Nystop) 1 gm TOP TID [facility] Last Admin: 02/12/19 15:01 Dose: 1 gm Ondansetron HCl (Zofran) 4 mg IV Q6H PRN PRN Reason: Nausea/Vomiting Last Admin: 02/12/19 08:08 Dose: 4 mg Oxycodone HCl (Oxycodone) 5 mg PO Q4H PRN PRN Reason: Pain (moderate 4-6) Last Admin: 02/12/19 17:17 Dose: 5 mg Pantoprazole Sodium (Protonix) 40 mg PO Q12HR [facility] Last Admin: 02/12/19 08:08 Dose: 40 mg Polyethylene Glycol (Miralax) 17 gm PO DAILY PRN PRN Reason: Constipation Promethazine HCl (Phenergan) 25 mg PO Q8H PRN PRN Reason: Nausea/Vomiting Scopolamine (Transderm-Scop) 1.5 mg TRDERM ONETIME [facility] Last Admin: 02/11/19 13:36 Dose: 1.5 mg Senna/Docusate Sodium (Senna Plus) 1 tab PO BID PRN PRN Reason: Constipation Sodium Chloride (Saline Flush) 10 ml FLUSH ASDIRECTED PRN PRN Reason: Keep Vein Open Temazepam (Restoril) 15 mg PO BEDTIME PRN PRN Reason: Sleep Valacyclovir HCl (Valtrex) 1,000 mg PO TID [facility] Last Admin: 02/12/19 15:01 Dose: 1,000 mg Vancomycin HCl (Pharmacy To Dose - Vancomycin) 0 dose .XX ASDIRECTED PRN PRN Reason: RX TO DOSE VANCOMYCIN Zolpidem Tartrate (Ambien) 5 mg PO BEDTIME [facility] Discontinued Medications Acetaminophen (Tylenol) 975 mg PO ONETIME ONE Stop: 02/11/19 04:02 Last Admin: 02/11/19 04:51 Dose: 975 mg Dexamethasone (Dexamethasone) Confirm Administered Dose 20 mg .ROUTE .STK-MED ONE Stop: 02/11/19 12:35 Fentanyl (Sublimaze) Confirm Administered Dose 250 mcg .ROUTE .STK-MED ONE Stop: 02/11/19 12:35 Glycopyrrolate () Confirm Administered Dose 1 mg .ROUTE .STK-MED ONE Stop: 02/11/19 13:58 Hydromorphone HCl (Dilaudid) 1 mg IVPUSH ONETIME ONE Stop: 02/11/19 03:55 Last Admin: 02/11/19 04:09 Dose: 1 mg Dextrose/Sodium Chloride (Dextrose 5%-Normal Saline) 1,000 mls @ 125 mls/hr IV ASDIRECTED [facility] Last Admin: 02/11/19 04:09 Dose: 125 mls/hr Linezolid 600 mg/ Premix 300 mls @ 300 mls/hr IV ONETIME ONE Stop: 02/11/19 05:26 Last Admin: 02/11/19 04:51 Dose: 300 mls/hr Vancomycin HCl 2 gm/ Sodium (Chloride) 500 mls @ 250 mls/hr IV ONETIME ONE Stop: 02/11/19 05:20 Last Admin: 02/11/19 06:07 Dose: 250 mls/hr Piperacillin Sod/Tazobactam (Sod 4.5 gm/ Sodium Chloride) 100 mls @ 200 mls/hr IV ONETIME ONE Stop: 02/11/19 09:29 Last Admin: 02/11/19 09:50 Dose: 200 mls/hr Vancomycin HCl 500 mg/ Sodium (Chloride) 250 mls @ 166.667 mls/hr IV Q12H [facility] Vancomycin HCl 1 gm/Vancomycin HCl 500 mg/ Sodium Chloride 500 mls @ 250 mls/ hr IV Q12H [facility] Last Admin: 02/12/19 18:09 Dose: Not Given Lactated Ringer's (Ringers, Lactated) Confirm Administered Dose 1,000 mls @ as directed .ROUTE .STK-MED ONE Stop: 02/11/19 12:35 Lidocaine HCl (Xylocaine-Mpf 1%) Confirm Administered Dose 2 mls @ as directed .ROUTE .STK-MED ONE Stop: 02/11/19 12:38 Magnesium Sulfate 4 gm/ Premix 50 mls @ 12.5 mls/hr IV ONETIME ONE Stop: 02/11/19 23:44 Last Admin: 02/11/19 20:23 Dose: 12.5 mls/hr Levofloxacin/Dextrose 750 mg/ (Premix) 150 mls @ 100 mls/hr IV Q24H [facility] Last Admin: 02/11/19 20:48 Dose: Not Given Lorazepam (Ativan) 1 mg PO NOW STA Stop: 02/12/19 10:00 Last Admin: 02/12/19 10:16 Dose: 1 mg Metoclopramide HCl (Reglan) 10 mg IVPUSH ONETIME ONE Stop: 02/11/19 03:55 Last Admin: 02/11/19 04:07 Dose: 10 mg Midazolam HCl (Versed 1 Mg/Ml) Confirm Administered Dose 2 mg .ROUTE .STK-MED ONE Stop: 02/11/19 12:35 Neostigmine Methylsulfate (Neostigmine) Confirm Administered Dose 5 mg .ROUTE .STK-MED ONE Stop: 02/11/19 13:58 Ondansetron HCl (Zofran) Confirm Administered Dose 4 mg .ROUTE .STK-MED ONE Stop: 02/11/19 12:35 Potassium Chloride (Klor-Con M20) 60 meq PO ONETIME ONE Stop: 02/11/19 19:45 Last Admin: 02/11/19 20:21 Dose: 60 meq Propofol (Diprivan 20 Ml) Confirm Administered Dose 200 mg .ROUTE .STK-MED ONE Stop: 02/11/19 12:35 Propofol (Diprivan 20 Ml) Confirm Administered Dose 400 mg .ROUTE .STK-MED ONE Stop: 02/11/19 13:30 Rocuronium [place] (Zemuron) Confirm Administered Dose 50 mg .ROUTE .STK-MED ONE Stop: 02/11/19 12:35 Scopolamine (Transderm-Scop) 1.5 mg TOP ONETIME ONE Stop: 02/11/19 10:20 Last Admin: 02/11/19 10:35 Dose: 1.5 mg Vancomycin HCl (Pharmacy To Dose - Vancomycin) 1 dose .XX ASDIRECTED [facility] - Exam Wound/Incisions: Other (Left hip incision closed, without drainage noted.) General: Alert, Cooperative, No Acute Distress Lungs: Normal Respiratory Effort Extremities: Other (Active and passive ROM at left hip with min complaints at posterolateral hip. No groin pain noted with motion of hip. Left thigh soft and nontender. Patchy erythema from midline low back to posterolateral left hip. No pustules noted at area. No overt vesicles. Kristina's negative for LLE. Decreased sensation left ankle and foot (longstanding). No active toe motion or left ankle dorsiflexion (longstanding).) - Problem List Review Problem List Initiated/Reviewed/Updated: Yes - My Orders Last 24 Hours: Active Orders 24 hr Category Date Time Status Incentive Spirometry [RT Incentive Spirometry] [RC] Care 02/11/19 19:59 Active Q2HWA Regular Diet [DIET] Diet 02/12/19 Lunch Active BASIC METABOLIC PANEL,BMP [CHEM] AM Lab 02/13/19 05:11 Ordered BASIC METABOLIC PANEL,BMP [CHEM] AM Lab 02/14/19 05:11 Ordered BASIC METABOLIC PANEL,BMP [CHEM] AM Lab 02/15/19 05:11 Ordered BASIC METABOLIC PANEL,BMP [CHEM] AM Lab 02/16/19 05:11 Ordered C-REACTIVE PROTEIN [CHEM] AM Lab 02/13/19 05:11 Ordered C-REACTIVE PROTEIN [CHEM] AM Lab 02/14/19 05:11 Ordered C-REACTIVE PROTEIN [CHEM] AM Lab 02/15/19 05:11 Ordered C-REACTIVE PROTEIN [CHEM] AM Lab 02/16/19 05:11 Ordered CBC W/O DIFF,HEMOGRAM [HEME] MOTH@0700 Lab 02/15/19 07:00 Ordered CBC W/O DIFF,HEMOGRAM [HEME] MOTH@0700 Lab 02/18/19 07:00 Ordered CBC W/O DIFF,HEMOGRAM [HEME] MOTH@0700 Lab 02/22/19 07:00 Ordered CBC W/O DIFF,HEMOGRAM [HEME] MOTH@0700 Lab 02/25/19 07:00 Ordered CBC W/O DIFF,HEMOGRAM [HEME] MOTH@0700 Lab 03/01/19 07:00 Ordered CBC W/O DIFF,HEMOGRAM [HEME] MOTH@0700 Lab 03/04/19 07:00 Ordered CBC WITH AUTO DIFF [HEME] AM Lab 02/13/19 05:11 Ordered CBC WITH AUTO DIFF [HEME] AM Lab 02/14/19 05:11 Ordered CBC WITH AUTO DIFF [HEME] AM Lab 02/15/19 05:11 Ordered CBC WITH AUTO DIFF [HEME] AM Lab 02/16/19 05:11 Ordered CULTURE SPUTUM + SMEAR [RM] Routine Lab 02/11/19 19:59 Ordered MAGNESIUM [CHEM] AM Lab 02/13/19 05:11 Ordered MAGNESIUM [CHEM] AM Lab 02/14/19 05:11 Ordered MAGNESIUM [CHEM] AM Lab 02/15/19 05:11 Ordered MAGNESIUM [CHEM] AM Lab 02/16/19 05:11 Ordered VANCOMYCIN TROUGH [CHEM] Timed Lab 02/12/19 17:00 Ordered Dextromethorphan/guaiFENesin [Robitussin DM] Med 02/11/19 19:59 Active 10 ml PO Q4H PRN Heparin Sodium Med 02/11/19 20:00 Active 5,000 units SUBCUT Q8H Nystatin [Nystop] Med 02/12/19 10:01 Active 1 gm TOP TID Pharmacy to Dose - Vancomycin Med 02/12/19 10:45 Active 0 dose .XX ASDIRECTED PRN Promethazine [Phenergan] Med 02/12/19 17:59 Active 25 mg PO Q8H PRN Remove Patch Med 02/14/19 13:30 Once 0 ea TRDERM ONETIME ONE Sodium Chloride 0.9% [Normal Saline] 500 ml Med 02/12/19 17:57 Active IV .BOLUS Sodium Chloride 0.9% [Saline Flush] Med 02/12/19 13:59 Active 10 ml FLUSH ASDIRECTED PRN Vancomycin 1 gm Med 02/12/19 20:00 Active Vancomycin 500 mg Sodium Chloride 0.9% [Normal Saline] 500 ml IV Q12H Zolpidem [Ambien] Med 02/12/19 21:00 Active 5 mg PO BEDTIME valACYclovir [Valtrex] Med 02/12/19 10:00 Active 1,000 mg PO TID Convert IV to Saline Lock [OM.PC] Routine Oth 02/12/19 13:59 Ordered Medication Orders Acetaminophen (Tylenol) 650 mg PO Q4H PRN PRN Reason: Pain (Mild 1-3)/fever Last Admin: 02/12/19 17:17 Dose: 650 mg Admin: 02/12/19 12:15 Dose: 650 mg Admin: 02/12/19 08:08 Dose: 650 mg Admin: 02/11/19 23:56 Dose: 650 mg Admin: 02/11/19 17:20 Dose: 650 mg Albuterol/Ipratropium (Duoneb 3.0-0.5 Mg/3 Ml) 3 ml NEB Q4H PRN PRN Reason: Shortness Of Breath/wheezing Bisacodyl (Dulcolax) 5 mg PO DAILY PRN PRN Reason: Constipation Docusate Sodium (Colace) 100 mg PO BID PRN PRN Reason: Constipation Gabapentin (Neurontin) 300 mg PO DAILY [facility] Last Admin: 02/12/19 08:08 Dose: 300 mg Admin: 02/11/19 09:51 Dose: Guaifenesin/Phenylephrine HCl (Robitussin Dm) 10 ml PO Q4H PRN PRN Reason: Cough Last Admin: 02/12/19 17:18 Dose: 10 ml Admin: 02/12/19 12:15 Dose: 10 ml Admin: 02/12/19 08:07 Dose: 10 ml Admin: 02/11/19 23:56 Dose: 10 ml Heparin Sodium (Porcine) (Heparin Sodium) 5,000 units SUBCUT Q8H [facility] Last Admin: 02/12/19 12:14 Dose: 5,000 units Admin: 02/12/19 04:59 Dose: 5,000 units Admin: 02/11/19 20:14 Dose: 5,000 units Hydralazine HCl (Apresoline) 20 mg IVPUSH Q4H PRN PRN Reason: Hypertension Hydromorphone HCl (Dilaudid) 0.5 mg IVPUSH Q2H PRN PRN Reason: Pain (severe 7-10) Lactated Ringer's (Ringers, Lactated) 1,000 mls @ 125 mls/hr IV ASDIRECTED [facility] Last Admin: 02/12/19 11:41 Dose: 125 mls/hr Infusion: 02/12/19 10:27 Dose: 125 mls/hr Admin: 02/12/19 02:27 Dose: 125 mls/hr Infusion: 02/12/19 02:27 Dose: 125 mls/hr Admin: 02/11/19 18:45 Dose: 125 mls/hr Infusion: 02/11/19 18:45 Dose: 125 mls/hr Admin: 02/11/19 12:56 Dose: 125 mls/hr Promethazine HCl 6.25 mg/ (Sodium Chloride) 50.25 mls @ 100 mls/hr IV Q6H PRN PRN Reason: Nausea/Vomiting Piperacillin Sod/Tazobactam (Sod 4.5 gm/ Sodium Chloride) 100 mls @ 25 mls/hr IV Q8H [facility] Last Admin: 02/12/19 16:37 Dose: 25 mls/hr Infusion: 02/12/19 12:08 Dose: 25 mls/hr Admin: 02/12/19 08:08 Dose: 25 mls/hr Infusion: 02/12/19 04:00 Dose: 25 mls/hr Admin: 02/12/19 00:00 Dose: 25 mls/hr Infusion: 02/11/19 20:33 Dose: 25 mls/hr Admin: 02/11/19 16:33 Dose: 25 mls/hr Sodium Chloride (Normal Saline) 500 mls @ 500 mls/hr IV .BOLUS ONE Stop: 02/12/19 18:56 Vancomycin HCl 1 gm/Vancomycin HCl 500 mg/ Sodium Chloride 500 mls @ 250 mls/ hr IV Q12H [facility] Lorazepam (Ativan) 0.5 mg IV Q6H PRN PRN Reason: Anxiety Metoprolol Tartrate (Lopressor) 5 mg IVPUSH Q4H PRN PRN Reason: Tachycardia Miscellaneous Information (Remove Patch) 0 ea TRDERM ONETIME ONE Stop: 02/14/19 13:31 Multivitamins (Thera) 1 each PO DAILY [facility] Last Admin: 02/12/19 08:08 Dose: 1 each Admin: 02/11/19 09:51 Dose: Nystatin (Nystop) 1 gm TOP TID [facility] Last Admin: 02/12/19 15:01 Dose: 1 gm Admin: 02/12/19 10:15 Dose: 1 gm Ondansetron HCl (Zofran) 4 mg IV Q6H PRN PRN Reason: Nausea/Vomiting Last Admin: 02/12/19 08:08 Dose: 4 mg Admin: 02/11/19 12:56 Dose: 4 mg Oxycodone HCl (Oxycodone) 5 mg PO Q4H PRN PRN Reason: Pain (moderate 4-6) Last Admin: 02/12/19 17:17 Dose: 5 mg Admin: 02/12/19 10:15 Dose: 5 mg Pantoprazole Sodium (Protonix) 40 mg PO Q12HR [facility] Last Admin: 02/12/19 08:08 Dose: 40 mg Admin: 02/11/19 20:21 Dose: 40 mg Admin: 02/11/19 09:51 Dose: Polyethylene Glycol (Miralax) 17 gm PO DAILY PRN PRN Reason: Constipation Promethazine HCl (Phenergan) 25 mg PO Q8H PRN PRN Reason: Nausea/Vomiting Scopolamine (Transderm-Scop) 1.5 mg TRDERM ONETIME [facility] Last Admin: 02/11/19 13:36 Dose: 1.5 mg Senna/Docusate Sodium (Senna Plus) 1 tab PO BID PRN PRN Reason: Constipation Sodium Chloride (Saline Flush) 10 ml FLUSH ASDIRECTED PRN PRN Reason: Keep Vein Open Temazepam (Restoril) 15 mg PO BEDTIME PRN PRN Reason: Sleep Valacyclovir HCl (Valtrex) 1,000 mg PO TID [facility] Last Admin: 02/12/19 15:01 Dose: 1,000 mg Admin: 02/12/19 10:16 Dose: 1,000 mg Vancomycin HCl (Pharmacy To Dose - Vancomycin) 0 dose .XX ASDIRECTED PRN PRN Reason: RX TO DOSE VANCOMYCIN Zolpidem Tartrate (Ambien) 5 mg PO BEDTIME [facility] - Assessment Assessment (Free Text/Narrative):: left low back and hip rash - Plan Plan (Free Text/Narrative):: 1. Anti-viral therapy initiated for possible herpes zoster. 2. Continue with IV antibiotic therapy for suspected cellulitis. 3. CRP 25.6. WBC decreased from 21 to 17. 4. Further orders per Hospitalist service. The pt's case has been discussed with Dr. Maurice.
[2019-02-12] MEDS ORDERED: Vancomycin 1 GM, Vancomycin 500 MG in Sodium Chloride 0.9% 500 ML IV SCH (20:00)
[2019-02-12] MEDS: Zolpidem 5 MG Tab PO SCH (20:47)
[2019-02-13] MEDS: Piperacillin/Tazobactam 4.5 GM in Sodium Chloride 0.9% 100 ML IV SCH ×3 (00:55→17:14)
[2019-02-13] MEDS: Promethazine 25 MG Tab PO PRN ×3 (01:02→20:28)
[2019-02-13] MEDS: Vancomycin 1 GM, Vancomycin 500 MG in Sodium Chloride 0.9% 500 ML IV SCH ×3 (04:25→20:40)
[2019-02-13] MEDS: Heparin Sodium 5,000 Units/ML Vial SUBCUT SCH ×3 (04:25→20:30)
[2019-02-13] MEDS: Gabapentin 300 MG Cap PO SCH (08:04)
[2019-02-13] MEDS: Pantoprazole 40 MG Tab.CR PO SCH ×2 (08:04→20:29)
[2019-02-13] MEDS: Multivitamins,Therapeutic Tab PO SCH (08:04)
[2019-02-13] MEDS: Nystatin Topical Powder 15 GM Bottle TOP SCH ×3 (08:04→20:47)
[2019-02-13] MEDS: valACYclovir 1,000 MG Tab PO SCH ×3 (08:04→21:21)
--- NOTE | 2019-02-13 11:09 | PCM.SURGPN ---
- General Info Date of Service: 02/13/19 Functional Status: Reports: Pain Controlled, Tolerating Diet, Ambulating, Urinating, Other (The pt reports soreness about left hip.) - Patient Data Vitals - Most Recent: Last Vital Signs Temp 99.1 F 02/13/19 08:00 Pulse 95 02/13/19 08:00 Resp 24 H 02/13/19 08:00 BP 108/80 02/13/19 08:00 Pulse Ox 90 L 02/13/19 08:39 Weight - Most Recent: 204 lb 1.6 oz I&O - Last 24 Hours: Intake & Output 02/12/19 02/13/19 02/13/19 22:59 06:59 14:59 Intake Total 3480 2100 Output Total 800 1250 Balance 2680 850 Lab Results Last 24 Hrs: Laboratory Results - last 24 hr 02/12/19 02/12/19 02/13/19 Range/Units 15:08 17:50 05:16 WBC 16.81 H (4.23-9.07) K/mm3 RBC 3.87 L (4.63-6.08) M/mm3 Hgb 11.4 L (13.7-17.5) gm/L Hct 34.4 L (40.1-51.0) % MCV 88.9 (79.0-92.2) fl MCH 29.5 (25.7-32.2) pg MCHC 33.1 (32.2-35.5) g/dl RDW Std Deviation 50.2 H (35.1-43.9) fL Plt Count 194 (163-337) K/mm3 MPV 9.9 (9.4-12.3) fl Neut % (Auto) 85.3 H (34.0-67.9) % Lymph % (Auto) 4.9 L (21.8-53.1) % Daggett % (Auto) 9.2 (5.3-12.2) % Eos % (Auto) 0.1 L (0.8-7.0) Baso % (Auto) 0.1 (0.1-1.2) % Neut # (Auto) 14.35 H (1.78-5.38) K/mm3 Lymph # (Auto) 0.82 L (1.32-3.57) K/mm3 Daggett # (Auto) 1.55 H (0.30-0.82) K/mm3 Eos # (Auto) 0.01 L (0.04-0.54) K/mm3 Baso # (Auto) 0.01 (0.01-0.08) K/mm3 Manual Slide Review Abnormal smear Sodium 136 (136-145) mEq/L Potassium 4.1 (3.5-5.1) mEq/L Chloride 102 (98-107) mEq/L Carbon Dioxide 22 (21-32) mEq/L Anion Gap 16.1 H (5-15) BUN 14 (7-18) mg/dL Creatinine 0.8 (0.7-1.3) mg/dL Est Cr Clr Drug Dosing 96.74 mL/min Estimated GFR (MDRD) > 60 (>60) mL/min BUN/Creatinine Ratio 17.5 (14-18) Glucose 134 H (80-115) mg/dL Calcium 8.4 L (8.5-10.1) mg/dL Magnesium (1.8-2.4) mg/dl Total Bilirubin 0.4 (0.2-1.0) mg/dL AST 14 L (15-37) U/L ALT 24 (16-63) U/L Alkaline Phosphatase 84 (46-116) U/L C-Reactive Protein (<1.0) mg/dL Total Protein 6.1 L (6.4-8.2) g/dl Albumin 2.4 L (3.4-5.0) g/dl Globulin 3.7 gm/dL Albumin/Globulin Ratio 0.7 L (1-2) Vancomycin Trough 7.8 L (10.0-20.0) 02/13/19 Range/Units 05:16 WBC (4.23-9.07) K/mm3 RBC (4.63-6.08) M/mm3 Hgb (13.7-17.5) gm/L Hct (40.1-51.0) % MCV (79.0-92.2) fl MCH (25.7-32.2) pg MCHC (32.2-35.5) g/dl RDW Std Deviation (35.1-43.9) fL Plt Count (163-337) K/mm3 MPV (9.4-12.3) fl Neut % (Auto) (34.0-67.9) % Lymph % (Auto) (21.8-53.1) % Daggett % (Auto) (5.3-12.2) % Eos % (Auto) (0.8-7.0) Baso % (Auto) (0.1-1.2) % Neut # (Auto) (1.78-5.38) K/mm3 Lymph # (Auto) (1.32-3.57) K/mm3 Daggett # (Auto) (0.30-0.82) K/mm3 Eos # (Auto) (0.04-0.54) K/mm3 Baso # (Auto) (0.01-0.08) K/mm3 Manual Slide Review Sodium 135 L (136-145) mEq/L Potassium 3.7 (3.5-5.1) mEq/L Chloride 104 (98-107) mEq/L Carbon Dioxide 23 (21-32) mEq/L Anion Gap 11.7 (5-15) BUN 9 (7-18) mg/dL Creatinine 0.8 (0.7-1.3) mg/dL Est Cr Clr Drug Dosing 96.74 mL/min Estimated GFR (MDRD) > 60 (>60) mL/min BUN/Creatinine Ratio 11.3 L (14-18) Glucose 94 (80-115) mg/dL Calcium 7.9 L (8.5-10.1) mg/dL Magnesium 1.8 (1.8-2.4) mg/dl Total Bilirubin (0.2-1.0) mg/dL AST (15-37) U/L ALT (16-63) U/L Alkaline Phosphatase (46-116) U/L C-Reactive Protein 21.6 H* (<1.0) mg/dL Total Protein (6.4-8.2) g/dl Albumin (3.4-5.0) g/dl Globulin gm/dL Albumin/Globulin Ratio (1-2) Vancomycin Trough (10.0-20.0) Jorge A Results Last 24 Hrs: Microbiology 02/11/19 07:42 Urine Culture - Final Urine, Clean Catch MIXED JARED SUGGESTIVE OF CONTAMINATION. 02/11/19 04:05 Aerobic Blood Culture - Preliminary Blood - Venous - Lab Draw NO GROWTH AFTER 2 DAYS Anaerobic Blood Culture - Preliminary NO GROWTH AFTER 2 DAYS 02/11/19 04:18 Aerobic Blood Culture - Preliminary Blood - Venous NO GROWTH AFTER 2 DAYS Anaerobic Blood Culture - Preliminary NO GROWTH AFTER 2 DAYS 02/12/19 10:04 ADIAN Preparation - Final Skin / Skin Scrapings - Buttock, Unspecified Med Orders - Current: Current Medications Acetaminophen (Tylenol) 650 mg PO Q4H PRN PRN Reason: Pain (Mild 1-3)/fever Last Admin: 02/12/19 17:17 Dose: 650 mg Albuterol/Ipratropium (Duoneb 3.0-0.5 Mg/3 Ml) 3 ml NEB Q4H PRN PRN Reason: Shortness Of Breath/wheezing Bisacodyl (Dulcolax) 5 mg PO DAILY PRN PRN Reason: Constipation Docusate Sodium (Colace) 100 mg PO BID PRN PRN Reason: Constipation Gabapentin (Neurontin) 300 mg PO DAILY [facility] Last Admin: 02/13/19 08:04 Dose: 300 mg Guaifenesin/Phenylephrine HCl (Robitussin Dm) 10 ml PO Q4H PRN PRN Reason: Cough Last Admin: 02/12/19 17:18 Dose: 10 ml Heparin Sodium (Porcine) (Heparin Sodium) 5,000 units SUBCUT Q8H [facility] Last Admin: 02/13/19 04:25 Dose: 5,000 units Hydralazine HCl (Apresoline) 20 mg IVPUSH Q4H PRN PRN Reason: Hypertension Hydromorphone HCl (Dilaudid) 0.5 mg IVPUSH Q2H PRN PRN Reason: Pain (severe 7-10) Promethazine HCl 6.25 mg/ (Sodium Chloride) 50.25 mls @ 100 mls/hr IV Q6H PRN PRN Reason: Nausea/Vomiting Piperacillin Sod/Tazobactam (Sod 4.5 gm/ Sodium Chloride) 100 mls @ 25 mls/hr IV Q8H [facility] Last Admin: 02/13/19 08:04 Dose: 25 mls/hr Vancomycin HCl 1 gm/Vancomycin HCl 500 mg/ Sodium Chloride 500 mls @ 250 mls/ hr IV Q8H [facility] Last Admin: 02/13/19 04:25 Dose: 250 mls/hr Lorazepam (Ativan) 0.5 mg IV Q6H PRN PRN Reason: Anxiety Metoprolol Tartrate (Lopressor) 5 mg IVPUSH Q4H PRN PRN Reason: Tachycardia Miscellaneous Information (Remove Patch) 0 ea TRDERM ONETIME ONE Stop: 02/14/19 13:31 Multivitamins (Thera) 1 each PO DAILY [facility] Last Admin: 02/13/19 08:04 Dose: 1 each Nystatin (Nystop) 1 gm TOP TID [facility] Last Admin: 02/13/19 08:04 Dose: 1 gm Ondansetron HCl (Zofran) 4 mg IV Q6H PRN PRN Reason: Nausea/Vomiting Last Admin: 02/12/19 08:08 Dose: 4 mg Oxycodone HCl (Oxycodone) 5 mg PO Q4H PRN PRN Reason: Pain (moderate 4-6) Last Admin: 02/12/19 20:48 Dose: 5 mg Pantoprazole Sodium (Protonix) 40 mg PO Q12HR [facility] Last Admin: 02/13/19 08:04 Dose: 40 mg Polyethylene Glycol (Miralax) 17 gm PO DAILY PRN PRN Reason: Constipation Promethazine HCl (Phenergan) 25 mg PO Q8H PRN PRN Reason: Nausea/Vomiting Last Admin: 02/13/19 01:02 Dose: 25 mg Scopolamine (Transderm-Scop) 1.5 mg TRDERM ONETIME [facility] Last Admin: 02/11/19 13:36 Dose: 1.5 mg Senna/Docusate Sodium (Senna Plus) 1 tab PO BID PRN PRN Reason: Constipation Sodium Chloride (Saline Flush) 10 ml FLUSH ASDIRECTED PRN PRN Reason: Keep Vein Open Temazepam (Restoril) 15 mg PO BEDTIME PRN PRN Reason: Sleep Valacyclovir HCl (Valtrex) 1,000 mg PO TID [facility] Last Admin: 02/13/19 08:04 Dose: 1,000 mg Vancomycin HCl (Pharmacy To Dose - Vancomycin) 0 dose .XX ASDIRECTED PRN PRN Reason: RX TO DOSE VANCOMYCIN Zolpidem Tartrate (Ambien) 5 mg PO BEDTIME [facility] Last Admin: 02/12/19 20:47 Dose: Not Given Discontinued Medications Acetaminophen (Tylenol) 975 mg PO ONETIME ONE Stop: 02/11/19 04:02 Last Admin: 02/11/19 04:51 Dose: 975 mg Dexamethasone (Dexamethasone) Confirm Administered Dose 20 mg .ROUTE .STK-MED ONE Stop: 02/11/19 12:35 Fentanyl (Sublimaze) Confirm Administered Dose 250 mcg .ROUTE .STK-MED ONE Stop: 02/11/19 12:35 Glycopyrrolate () Confirm Administered Dose 1 mg .ROUTE .STK-MED ONE Stop: 02/11/19 13:58 Hydromorphone HCl (Dilaudid) 1 mg IVPUSH ONETIME ONE Stop: 02/11/19 03:55 Last Admin: 02/11/19 04:09 Dose: 1 mg Dextrose/Sodium Chloride (Dextrose 5%-Normal Saline) 1,000 mls @ 125 mls/hr IV ASDIRECTED [facility] Last Admin: 02/11/19 04:09 Dose: 125 mls/hr Linezolid 600 mg/ Premix 300 mls @ 300 mls/hr IV ONETIME ONE Stop: 02/11/19 05:26 Last Admin: 02/11/19 04:51 Dose: 300 mls/hr Vancomycin HCl 2 gm/ Sodium (Chloride) 500 mls @ 250 mls/hr IV ONETIME ONE Stop: 02/11/19 05:20 Last Admin: 02/11/19 06:07 Dose: 250 mls/hr Lactated Ringer's (Ringers, Lactated) 1,000 mls @ 125 mls/hr IV ASDIRECTED [facility] Last Admin: 02/12/19 11:41 Dose: 125 mls/hr Piperacillin Sod/Tazobactam (Sod 4.5 gm/ Sodium Chloride) 100 mls @ 200 mls/hr IV ONETIME ONE Stop: 02/11/19 09:29 Last Admin: 02/11/19 09:50 Dose: 200 mls/hr Vancomycin HCl 500 mg/ Sodium (Chloride) 250 mls @ 166.667 mls/hr IV Q12H [facility] Vancomycin HCl 1 gm/Vancomycin HCl 500 mg/ Sodium Chloride 500 mls @ 250 mls/ hr IV Q12H [facility] Last Admin: 02/12/19 18:09 Dose: Not Given Lactated Ringer's (Ringers, Lactated) Confirm Administered Dose 1,000 mls @ as directed .ROUTE .STK-MED ONE Stop: 02/11/19 12:35 Lidocaine HCl (Xylocaine-Mpf 1%) Confirm Administered Dose 2 mls @ as directed .ROUTE .STK-MED ONE Stop: 02/11/19 12:38 Magnesium Sulfate 4 gm/ Premix 50 mls @ 12.5 mls/hr IV ONETIME ONE Stop: 02/11/19 23:44 Last Admin: 02/11/19 20:23 Dose: 12.5 mls/hr Levofloxacin/Dextrose 750 mg/ (Premix) 150 mls @ 100 mls/hr IV Q24H [facility] Last Admin: 02/11/19 20:48 Dose: Not Given Sodium Chloride (Normal Saline) 500 mls @ 500 mls/hr IV .BOLUS ONE Stop: 02/12/19 18:56 Last Admin: 02/12/19 18:16 Dose: 500 mls/hr Vancomycin HCl 1 gm/Vancomycin HCl 500 mg/ Sodium Chloride 500 mls @ 250 mls/ hr IV Q12H [facility] Lorazepam (Ativan) 1 mg PO NOW STA Stop: 02/12/19 10:00 Last Admin: 02/12/19 10:16 Dose: 1 mg Metoclopramide HCl (Reglan) 10 mg IVPUSH ONETIME ONE Stop: 02/11/19 03:55 Last Admin: 02/11/19 04:07 Dose: 10 mg Midazolam HCl (Versed 1 Mg/Ml) Confirm Administered Dose 2 mg .ROUTE .STK-MED ONE Stop: 02/11/19 12:35 Neostigmine Methylsulfate (Neostigmine) Confirm Administered Dose 5 mg .ROUTE .STK-MED ONE Stop: 02/11/19 13:58 Ondansetron HCl (Zofran) Confirm Administered Dose 4 mg .ROUTE .STK-MED ONE Stop: 02/11/19 12:35 Potassium Chloride (Klor-Con M20) 60 meq PO ONETIME ONE Stop: 02/11/19 19:45 Last Admin: 02/11/19 20:21 Dose: 60 meq Propofol (Diprivan 20 Ml) Confirm Administered Dose 200 mg .ROUTE .STK-MED ONE Stop: 02/11/19 12:35 Propofol (Diprivan 20 Ml) Confirm Administered Dose 400 mg .ROUTE .STK-MED ONE Stop: 02/11/19 13:30 Rocuronium [place] (Zemuron) Confirm Administered Dose 50 mg .ROUTE .STK-MED ONE Stop: 02/11/19 12:35 Scopolamine (Transderm-Scop) 1.5 mg TOP ONETIME ONE Stop: 02/11/19 10:20 Last Admin: 02/11/19 10:35 Dose: 1.5 mg Vancomycin HCl (Pharmacy To Dose - Vancomycin) 1 dose .XX ASDIRECTED [facility] - Exam Wound/Incisions: Dressing Dry and Intact General: Alert, Cooperative, No Acute Distress Lungs: Normal Respiratory Effort Skin: Other (Skin changes at left hip stable - erythematous patches without drainage or bleeding.) - Problem List Review Problem List Initiated/Reviewed/Updated: Yes - My Orders Last 24 Hours: Active Orders 24 hr Category Date Time Status Regular Diet [DIET] Diet 02/12/19 Lunch Active BASIC METABOLIC PANEL,BMP [CHEM] AM Lab 02/14/19 05:11 Ordered BASIC METABOLIC PANEL,BMP [CHEM] AM Lab 02/15/19 05:11 Ordered BASIC METABOLIC PANEL,BMP [CHEM] AM Lab 02/16/19 05:11 Ordered C-REACTIVE PROTEIN [CHEM] AM Lab 02/14/19 05:11 Ordered C-REACTIVE PROTEIN [CHEM] AM Lab 02/15/19 05:11 Ordered C-REACTIVE PROTEIN [CHEM] AM Lab 02/16/19 05:11 Ordered CBC W/O DIFF,HEMOGRAM [HEME] MOTH@0700 Lab 02/15/19 07:00 Ordered CBC W/O DIFF,HEMOGRAM [HEME] MOTH@0700 Lab 02/18/19 07:00 Ordered CBC W/O DIFF,HEMOGRAM [HEME] MOTH@0700 Lab 02/22/19 07:00 Ordered CBC W/O DIFF,HEMOGRAM [HEME] MOTH@0700 Lab 02/25/19 07:00 Ordered CBC W/O DIFF,HEMOGRAM [HEME] MOTH@0700 Lab 03/01/19 07:00 Ordered CBC W/O DIFF,HEMOGRAM [HEME] MOTH@0700 Lab 03/04/19 07:00 Ordered CBC WITH AUTO DIFF [HEME] AM Lab 02/14/19 05:11 Ordered CBC WITH AUTO DIFF [HEME] AM Lab 02/15/19 05:11 Ordered CBC WITH AUTO DIFF [HEME] AM Lab 02/16/19 05:11 Ordered MAGNESIUM [CHEM] AM Lab 02/14/19 05:11 Ordered MAGNESIUM [CHEM] AM Lab 02/15/19 05:11 Ordered MAGNESIUM [CHEM] AM Lab 02/16/19 05:11 Ordered VANCOMYCIN TROUGH [CHEM] Timed Lab 02/13/19 19:30 Ordered Pharmacy to Dose - Vancomycin Med 02/12/19 10:45 Active 0 dose .XX ASDIRECTED PRN Promethazine [Phenergan] Med 02/12/19 17:59 Active 25 mg PO Q8H PRN Remove Patch Med 02/14/19 13:30 Once 0 ea TRDERM ONETIME ONE Sodium Chloride 0.9% [Saline Flush] Med 02/12/19 13:59 Active 10 ml FLUSH ASDIRECTED PRN Vancomycin 1 gm Med 02/12/19 20:00 Active Vancomycin 500 mg Sodium Chloride 0.9% [Normal Saline] 500 ml IV Q8H Zolpidem [Ambien] Med 02/12/19 21:00 Active 5 mg PO BEDTIME Convert IV to Saline Lock [OM.PC] Routine Oth 02/12/19 13:59 Ordered Medication Orders Acetaminophen (Tylenol) 650 mg PO Q4H PRN PRN Reason: Pain (Mild 1-3)/fever Last Admin: 02/12/19 17:17 Dose: 650 mg Admin: 02/12/19 12:15 Dose: 650 mg Admin: 02/12/19 08:08 Dose: 650 mg Admin: 02/11/19 23:56 Dose: 650 mg Admin: 02/11/19 17:20 Dose: 650 mg Albuterol/Ipratropium (Duoneb 3.0-0.5 Mg/3 Ml) 3 ml NEB Q4H PRN PRN Reason: Shortness Of Breath/wheezing Bisacodyl (Dulcolax) 5 mg PO DAILY PRN PRN Reason: Constipation Docusate Sodium (Colace) 100 mg PO BID PRN PRN Reason: Constipation Gabapentin (Neurontin) 300 mg PO DAILY [facility] Last Admin: 02/13/19 08:04 Dose: 300 mg Admin: 02/12/19 08:08 Dose: 300 mg Admin: 02/11/19 09:51 Dose: Guaifenesin/Phenylephrine HCl (Robitussin Dm) 10 ml PO Q4H PRN PRN Reason: Cough Last Admin: 02/12/19 17:18 Dose: 10 ml Admin: 02/12/19 12:15 Dose: 10 ml Admin: 02/12/19 08:07 Dose: 10 ml Admin: 02/11/19 23:56 Dose: 10 ml Heparin Sodium (Porcine) (Heparin Sodium) 5,000 units SUBCUT Q8H [facility] Last Admin: 02/13/19 04:25 Dose: 5,000 units Admin: 02/12/19 20:38 Dose: 5,000 units Admin: 02/12/19 12:14 Dose: 5,000 units Admin: 02/12/19 04:59 Dose: 5,000 units Admin: 02/11/19 20:14 Dose: 5,000 units Hydralazine HCl (Apresoline) 20 mg IVPUSH Q4H PRN PRN Reason: Hypertension Hydromorphone HCl (Dilaudid) 0.5 mg IVPUSH Q2H PRN PRN Reason: Pain (severe 7-10) Promethazine HCl 6.25 mg/ (Sodium Chloride) 50.25 mls @ 100 mls/hr IV Q6H PRN PRN Reason: Nausea/Vomiting Piperacillin Sod/Tazobactam (Sod 4.5 gm/ Sodium Chloride) 100 mls @ 25 mls/hr IV Q8H [facility] Last Admin: 02/13/19 08:04 Dose: 25 mls/hr Infusion: 02/13/19 04:55 Dose: 25 mls/hr Admin: 02/13/19 00:55 Dose: 25 mls/hr Infusion: 02/12/19 20:37 Dose: 25 mls/hr Admin: 02/12/19 16:37 Dose: 25 mls/hr Infusion: 02/12/19 12:08 Dose: 25 mls/hr Admin: 02/12/19 08:08 Dose: 25 mls/hr Infusion: 02/12/19 04:00 Dose: 25 mls/hr Admin: 02/12/19 00:00 Dose: 25 mls/hr Infusion: 02/11/19 20:33 Dose: 25 mls/hr Admin: 02/11/19 16:33 Dose: 25 mls/hr Vancomycin HCl 1 gm/Vancomycin HCl 500 mg/ Sodium Chloride 500 mls @ 250 mls/ hr IV Q8H [facility] Last Admin: 02/13/19 04:25 Dose: 250 mls/hr Infusion: 02/12/19 22:45 Dose: 250 mls/hr Admin: 02/12/19 20:45 Dose: 250 mls/hr Lorazepam (Ativan) 0.5 mg IV Q6H PRN PRN Reason: Anxiety Metoprolol Tartrate (Lopressor) 5 mg IVPUSH Q4H PRN PRN Reason: Tachycardia Miscellaneous Information (Remove Patch) 0 ea TRDERM ONETIME ONE Stop: 02/14/19 13:31 Multivitamins (Thera) 1 each PO DAILY [facility] Last Admin: 02/13/19 08:04 Dose: 1 each Admin: 02/12/19 08:08 Dose: 1 each Admin: 02/11/19 09:51 Dose: Nystatin (Nystop) 1 gm TOP TID [facility] Last Admin: 02/13/19 08:04 Dose: 1 gm Admin: 02/12/19 20:38 Dose: 1 gm Admin: 02/12/19 15:01 Dose: 1 gm Admin: 02/12/19 10:15 Dose: 1 gm Ondansetron HCl (Zofran) 4 mg IV Q6H PRN PRN Reason: Nausea/Vomiting Last Admin: 02/12/19 08:08 Dose: 4 mg Admin: 02/11/19 12:56 Dose: 4 mg Oxycodone HCl (Oxycodone) 5 mg PO Q4H PRN PRN Reason: Pain (moderate 4-6) Last Admin: 02/12/19 20:48 Dose: 5 mg Admin: 02/12/19 17:17 Dose: 5 mg Admin: 02/12/19 10:15 Dose: 5 mg Pantoprazole Sodium (Protonix) 40 mg PO Q12HR [facility] Last Admin: 02/13/19 08:04 Dose: 40 mg Admin: 02/12/19 20:39 Dose: 40 mg Admin: 02/12/19 08:08 Dose: 40 mg Admin: 02/11/19 20:21 Dose: 40 mg Admin: 02/11/19 09:51 Dose: Polyethylene Glycol (Miralax) 17 gm PO DAILY PRN PRN Reason: Constipation Promethazine HCl (Phenergan) 25 mg PO Q8H PRN PRN Reason: Nausea/Vomiting Last Admin: 02/13/19 01:02 Dose: 25 mg Admin: 02/12/19 18:16 Dose: 25 mg Scopolamine (Transderm-Scop) 1.5 mg TRDERM ONETIME [facility] Last Admin: 02/11/19 13:36 Dose: 1.5 mg Senna/Docusate Sodium (Senna Plus) 1 tab PO BID PRN PRN Reason: Constipation Sodium Chloride (Saline Flush) 10 ml FLUSH ASDIRECTED PRN PRN Reason: Keep Vein Open Temazepam (Restoril) 15 mg PO BEDTIME PRN PRN Reason: Sleep Valacyclovir HCl (Valtrex) 1,000 mg PO TID [facility] Last Admin: 02/13/19 08:04 Dose: 1,000 mg Admin: 02/12/19 20:39 Dose: 1,000 mg Admin: 02/12/19 15:01 Dose: 1,000 mg Admin: 02/12/19 10:16 Dose: 1,000 mg Vancomycin HCl (Pharmacy To Dose - Vancomycin) 0 dose .XX ASDIRECTED PRN PRN Reason: RX TO DOSE VANCOMYCIN Zolpidem Tartrate (Ambien) 5 mg PO BEDTIME [facility] Last Admin: 02/12/19 20:47 Dose: Not Given - Assessment Assessment (Free Text/Narrative):: cellulitis and possible herpes zoster left hip - Plan Plan (Free Text/Narrative):: 1. Hospitalist service for medical management. 2. CPR and WBC decreasing. 3. Continue with current plan of care - IV antibiotic therapy, antiviral therapy. The pt was evaluated by Dr. Kaylene fisher.
--- NOTE | 2019-02-13 13:14 | PCM.PN ---
- General Info Date of Service: 02/13/19 Admission Dx/Problem (Free Text): Admission Diagnosis/Problem Admission Diagnosis/Problem Acute febrile illness fever confusion. left lateral thigh cellulitis. l orif nausea/hicccups tachicardia Subjective Update: day 3 i/os 5200/3000 weight up slightly confusion mild and speech clear a nd no neuro deficits. responds and reorientates easily with prompts . minimal cough . mild anorexia . hiccups returned after promethazine given last night . lungs clear other than rt crackles mild inspiratory . no dullness or decreased b.s noted cor mild sinus tach 90-108/ no s3/s4 no murmur abd benign back normal ms left hip redness better a nd induration and pain better . ice pack on . joints normal scar unchanged lab na 134. rest normal cbc unchanged hgn 11.7 crp 21. blood cultures neg. assess. persistent cellulitis improving on vanco and zosyn. no vesicles to suggest shingles / cont acyclovir. confusion mild and cont treatments check d dimer sec to elavated crp and tach/hiccups cont lab check possible repeat ct scan if not improving Functional Status: Reports: Pain Controlled - Review of Systems General: Reports: Fever, Weakness, Fatigue, Malaise, Chills, Appetite HEENT: Reports: No Symptoms Pulmonary: Reports: No Symptoms, Shortness of Breath Cardiovascular: Reports: No Symptoms Gastrointestinal: Reports: Decreased Appetite, Nausea Genitourinary: Reports: No Symptoms Musculoskeletal: Reports: Leg Pain, Joint Pain Skin: Reports: Rash Neurological: Reports: Confusion Psychiatric: Reports: No Symptoms, Confusion - Patient Data Vitals - Most Recent: Last Vital Signs Temp 36.9 C 02/13/19 12:00 Pulse 89 02/13/19 12:00 Resp 20 02/13/19 12:00 BP 135/68 02/13/19 12:00 Pulse Ox 91 L 02/13/19 12:00 Weight - Most Recent: 92.578 kg I&O - Last 24 Hours: Intake & Output 02/12/19 02/13/19 02/13/19 22:59 06:59 14:59 Intake Total 3480 2100 Output Total 800 1250 Balance 2680 850 Lab Results Last 24 Hours: Laboratory Results - last 24 hr 02/12/19 02/12/19 02/13/19 Range/Units 15:08 17:50 05:16 WBC 16.81 H (4.23-9.07) K/mm3 RBC 3.87 L (4.63-6.08) M/mm3 Hgb 11.4 L (13.7-17.5) gm/L Hct 34.4 L (40.1-51.0) % MCV 88.9 (79.0-92.2) fl MCH 29.5 (25.7-32.2) pg MCHC 33.1 (32.2-35.5) g/dl RDW Std Deviation 50.2 H (35.1-43.9) fL Plt Count 194 (163-337) K/mm3 MPV 9.9 (9.4-12.3) fl Neut % (Auto) 85.3 H (34.0-67.9) % Lymph % (Auto) 4.9 L (21.8-53.1) % Hale % (Auto) 9.2 (5.3-12.2) % Eos % (Auto) 0.1 L (0.8-7.0) Baso % (Auto) 0.1 (0.1-1.2) % Neut # (Auto) 14.35 H (1.78-5.38) K/mm3 Lymph # (Auto) 0.82 L (1.32-3.57) K/mm3 Hale # (Auto) 1.55 H (0.30-0.82) K/mm3 Eos # (Auto) 0.01 L (0.04-0.54) K/mm3 Baso # (Auto) 0.01 (0.01-0.08) K/mm3 Manual Slide Review Abnormal smear Sodium 136 (136-145) mEq/L Potassium 4.1 (3.5-5.1) mEq/L Chloride 102 (98-107) mEq/L Carbon Dioxide 22 (21-32) mEq/L Anion Gap 16.1 H (5-15) BUN 14 (7-18) mg/dL Creatinine 0.8 (0.7-1.3) mg/dL Est Cr Clr Drug Dosing 96.74 mL/min Estimated GFR (MDRD) > 60 (>60) mL/min BUN/Creatinine Ratio 17.5 (14-18) Glucose 134 H (80-115) mg/dL Calcium 8.4 L (8.5-10.1) mg/dL Magnesium (1.8-2.4) mg/dl Total Bilirubin 0.4 (0.2-1.0) mg/dL AST 14 L (15-37) U/L ALT 24 (16-63) U/L Alkaline Phosphatase 84 (46-116) U/L C-Reactive Protein (<1.0) mg/dL Total Protein 6.1 L (6.4-8.2) g/dl Albumin 2.4 L (3.4-5.0) g/dl Globulin 3.7 gm/dL Albumin/Globulin Ratio 0.7 L (1-2) Vancomycin Trough 7.8 L (10.0-20.0) 02/13/19 Range/Units 05:16 WBC (4.23-9.07) K/mm3 RBC (4.63-6.08) M/mm3 Hgb (13.7-17.5) gm/L Hct (40.1-51.0) % MCV (79.0-92.2) fl MCH (25.7-32.2) pg MCHC (32.2-35.5) g/dl RDW Std Deviation (35.1-43.9) fL Plt Count (163-337) K/mm3 MPV (9.4-12.3) fl Neut % (Auto) (34.0-67.9) % Lymph % (Auto) (21.8-53.1) % Hale % (Auto) (5.3-12.2) % Eos % (Auto) (0.8-7.0) Baso % (Auto) (0.1-1.2) % Neut # (Auto) (1.78-5.38) K/mm3 Lymph # (Auto) (1.32-3.57) K/mm3 Hale # (Auto) (0.30-0.82) K/mm3 Eos # (Auto) (0.04-0.54) K/mm3 Baso # (Auto) (0.01-0.08) K/mm3 Manual Slide Review Sodium 135 L (136-145) mEq/L Potassium 3.7 (3.5-5.1) mEq/L Chloride 104 (98-107) mEq/L Carbon Dioxide 23 (21-32) mEq/L Anion Gap 11.7 (5-15) BUN 9 (7-18) mg/dL Creatinine 0.8 (0.7-1.3) mg/dL Est Cr Clr Drug Dosing 96.74 mL/min Estimated GFR (MDRD) > 60 (>60) mL/min BUN/Creatinine Ratio 11.3 L (14-18) Glucose 94 (80-115) mg/dL Calcium 7.9 L (8.5-10.1) mg/dL Magnesium 1.8 (1.8-2.4) mg/dl Total Bilirubin (0.2-1.0) mg/dL AST (15-37) U/L ALT (16-63) U/L Alkaline Phosphatase (46-116) U/L C-Reactive Protein 21.6 H* (<1.0) mg/dL Total Protein (6.4-8.2) g/dl Albumin (3.4-5.0) g/dl Globulin gm/dL Albumin/Globulin Ratio (1-2) Vancomycin Trough (10.0-20.0) Jorge A Results Last 24 Hours: Microbiology 02/11/19 07:42 Urine Culture - Final Urine, Clean Catch MIXED JARED SUGGESTIVE OF CONTAMINATION. 02/11/19 04:05 Aerobic Blood Culture - Preliminary Blood - Venous - Lab Draw NO GROWTH AFTER 2 DAYS Anaerobic Blood Culture - Preliminary NO GROWTH AFTER 2 DAYS 02/11/19 04:18 Aerobic Blood Culture - Preliminary Blood - Venous NO GROWTH AFTER 2 DAYS Anaerobic Blood Culture - Preliminary NO GROWTH AFTER 2 DAYS 02/12/19 10:04 AIDAN Preparation - Final Skin / Skin Scrapings - Buttock, Unspecified Med Orders - Current: Current Medications Acetaminophen (Tylenol) 650 mg PO Q4H PRN PRN Reason: Pain (Mild 1-3)/fever Last Admin: 02/12/19 17:17 Dose: 650 mg Albuterol/Ipratropium (Duoneb 3.0-0.5 Mg/3 Ml) 3 ml NEB Q4H PRN PRN Reason: Shortness Of Breath/wheezing Bisacodyl (Dulcolax) 5 mg PO DAILY PRN PRN Reason: Constipation Docusate Sodium (Colace) 100 mg PO BID PRN PRN Reason: Constipation Gabapentin (Neurontin) 300 mg PO DAILY [facility] Last Admin: 02/13/19 08:04 Dose: 300 mg Guaifenesin/Phenylephrine HCl (Robitussin Dm) 10 ml PO Q4H PRN PRN Reason: Cough Last Admin: 02/12/19 17:18 Dose: 10 ml Heparin Sodium (Porcine) (Heparin Sodium) 5,000 units SUBCUT Q8H [facility] Last Admin: 02/13/19 12:33 Dose: 5,000 units Hydralazine HCl (Apresoline) 20 mg IVPUSH Q4H PRN PRN Reason: Hypertension Hydromorphone HCl (Dilaudid) 0.5 mg IVPUSH Q2H PRN PRN Reason: Pain (severe 7-10) Promethazine HCl 6.25 mg/ (Sodium Chloride) 50.25 mls @ 100 mls/hr IV Q6H PRN PRN Reason: Nausea/Vomiting Piperacillin Sod/Tazobactam (Sod 4.5 gm/ Sodium Chloride) 100 mls @ 25 mls/hr IV Q8H [facility] Last Admin: 02/13/19 08:04 Dose: 25 mls/hr Vancomycin HCl 1 gm/Vancomycin HCl 500 mg/ Sodium Chloride 500 mls @ 250 mls/ hr IV Q8H [facility] Last Admin: 02/13/19 12:08 Dose: 250 mls/hr Lorazepam (Ativan) 0.5 mg IV Q6H PRN PRN Reason: Anxiety Metoprolol Tartrate (Lopressor) 5 mg IVPUSH Q4H PRN PRN Reason: Tachycardia Miscellaneous Information (Remove Patch) 0 ea TRDERM ONETIME ONE Stop: 02/14/19 13:31 Multivitamins (Thera) 1 each PO DAILY [facility] Last Admin: 02/13/19 08:04 Dose: 1 each Nystatin (Nystop) 1 gm TOP TID [facility] Last Admin: 02/13/19 08:04 Dose: 1 gm Ondansetron HCl (Zofran) 4 mg IV Q6H PRN PRN Reason: Nausea/Vomiting Last Admin: 02/12/19 08:08 Dose: 4 mg Oxycodone HCl (Oxycodone) 5 mg PO Q4H PRN PRN Reason: Pain (moderate 4-6) Last Admin: 02/12/19 20:48 Dose: 5 mg Pantoprazole Sodium (Protonix) 40 mg PO Q12HR [facility] Last Admin: 02/13/19 08:04 Dose: 40 mg Polyethylene Glycol (Miralax) 17 gm PO DAILY PRN PRN Reason: Constipation Promethazine HCl (Phenergan) 25 mg PO Q8H PRN PRN Reason: Nausea/Vomiting Last Admin: 02/13/19 12:33 Dose: 25 mg Scopolamine (Transderm-Scop) 1.5 mg TRDERM ONETIME [facility] Last Admin: 02/11/19 13:36 Dose: 1.5 mg Senna/Docusate Sodium (Senna Plus) 1 tab PO BID PRN PRN Reason: Constipation Sodium Chloride (Saline Flush) 10 ml FLUSH ASDIRECTED PRN PRN Reason: Keep Vein Open Temazepam (Restoril) 15 mg PO BEDTIME PRN PRN Reason: Sleep Valacyclovir HCl (Valtrex) 1,000 mg PO TID [facility] Last Admin: 02/13/19 08:04 Dose: 1,000 mg Vancomycin HCl (Pharmacy To Dose - Vancomycin) 0 dose .XX ASDIRECTED PRN PRN Reason: RX TO DOSE VANCOMYCIN Zolpidem Tartrate (Ambien) 5 mg PO BEDTIME [facility] Last Admin: 02/12/19 20:47 Dose: Not Given Discontinued Medications Acetaminophen (Tylenol) 975 mg PO ONETIME ONE Stop: 02/11/19 04:02 Last Admin: 02/11/19 04:51 Dose: 975 mg Dexamethasone (Dexamethasone) Confirm Administered Dose 20 mg .ROUTE .STK-MED ONE Stop: 02/11/19 12:35 Fentanyl (Sublimaze) Confirm Administered Dose 250 mcg .ROUTE .STK-MED ONE Stop: 02/11/19 12:35 Glycopyrrolate () Confirm Administered Dose 1 mg .ROUTE .STK-MED ONE Stop: 02/11/19 13:58 Hydromorphone HCl (Dilaudid) 1 mg IVPUSH ONETIME ONE Stop: 02/11/19 03:55 Last Admin: 02/11/19 04:09 Dose: 1 mg Dextrose/Sodium Chloride (Dextrose 5%-Normal Saline) 1,000 mls @ 125 mls/hr IV ASDIRECTED [facility] Last Admin: 02/11/19 04:09 Dose: 125 mls/hr Linezolid 600 mg/ Premix 300 mls @ 300 mls/hr IV ONETIME ONE Stop: 02/11/19 05:26 Last Admin: 02/11/19 04:51 Dose: 300 mls/hr Vancomycin HCl 2 gm/ Sodium (Chloride) 500 mls @ 250 mls/hr IV ONETIME ONE Stop: 02/11/19 05:20 Last Admin: 02/11/19 06:07 Dose: 250 mls/hr Lactated Ringer's (Ringers, Lactated) 1,000 mls @ 125 mls/hr IV ASDIRECTED [facility] Last Admin: 02/12/19 11:41 Dose: 125 mls/hr Piperacillin Sod/Tazobactam (Sod 4.5 gm/ Sodium Chloride) 100 mls @ 200 mls/hr IV ONETIME ONE Stop: 02/11/19 09:29 Last Admin: 02/11/19 09:50 Dose: 200 mls/hr Vancomycin HCl 500 mg/ Sodium (Chloride) 250 mls @ 166.667 mls/hr IV Q12H [facility] Vancomycin HCl 1 gm/Vancomycin HCl 500 mg/ Sodium Chloride 500 mls @ 250 mls/ hr IV Q12H [facility] Last Admin: 02/12/19 18:09 Dose: Not Given Lactated Ringer's (Ringers, Lactated) Confirm Administered Dose 1,000 mls @ as directed .ROUTE .STK-MED ONE Stop: 02/11/19 12:35 Lidocaine HCl (Xylocaine-Mpf 1%) Confirm Administered Dose 2 mls @ as directed .ROUTE .STK-MED ONE Stop: 02/11/19 12:38 Magnesium Sulfate 4 gm/ Premix 50 mls @ 12.5 mls/hr IV ONETIME ONE Stop: 02/11/19 23:44 Last Admin: 02/11/19 20:23 Dose: 12.5 mls/hr Levofloxacin/Dextrose 750 mg/ (Premix) 150 mls @ 100 mls/hr IV Q24H [facility] Last Admin: 02/11/19 20:48 Dose: Not Given Sodium Chloride (Normal Saline) 500 mls @ 500 mls/hr IV .BOLUS ONE Stop: 02/12/19 18:56 Last Admin: 02/12/19 18:16 Dose: 500 mls/hr Vancomycin HCl 1 gm/Vancomycin HCl 500 mg/ Sodium Chloride 500 mls @ 250 mls/ hr IV Q12H [facility] Lorazepam (Ativan) 1 mg PO NOW STA Stop: 02/12/19 10:00 Last Admin: 02/12/19 10:16 Dose: 1 mg Metoclopramide HCl (Reglan) 10 mg IVPUSH ONETIME ONE Stop: 02/11/19 03:55 Last Admin: 02/11/19 04:07 Dose: 10 mg Midazolam HCl (Versed 1 Mg/Ml) Confirm Administered Dose 2 mg .ROUTE .STK-MED ONE Stop: 02/11/19 12:35 Neostigmine Methylsulfate (Neostigmine) Confirm Administered Dose 5 mg .ROUTE .STK-MED ONE Stop: 02/11/19 13:58 Ondansetron HCl (Zofran) Confirm Administered Dose 4 mg .ROUTE .STK-MED ONE Stop: 02/11/19 12:35 Potassium Chloride (Klor-Con M20) 60 meq PO ONETIME ONE Stop: 02/11/19 19:45 Last Admin: 02/11/19 20:21 Dose: 60 meq Propofol (Diprivan 20 Ml) Confirm Administered Dose 200 mg .ROUTE .STK-MED ONE Stop: 02/11/19 12:35 Propofol (Diprivan 20 Ml) Confirm Administered Dose 400 mg .ROUTE .STK-MED ONE Stop: 02/11/19 13:30 Rocuronium [place] (Zemuron) Confirm Administered Dose 50 mg .ROUTE .STK-MED ONE Stop: 02/11/19 12:35 Scopolamine (Transderm-Scop) 1.5 mg TOP ONETIME ONE Stop: 02/11/19 10:20 Last Admin: 02/11/19 10:35 Dose: 1.5 mg Vancomycin HCl (Pharmacy To Dose - Vancomycin) 1 dose .XX ASDIRECTED [facility] - Problem List & Annotations (1) Abscess or cellulitis of hip SNOMED Code(s): 127275545 Code(s): ZVX9497 - Status: Acute Priority: High Current Visit: Yes Onset Date: 02/10/19 (2) Fracture of femoral neck, left, closed SNOMED Code(s): 438936745, [id number] Code(s): S72.002A - FRACTURE OF UNSP PART OF NECK OF LEFT FEMUR, INIT Status: Acute Current Visit: No Onset Date: 12/31/18 Qualifiers: Fracture healing: with routine healing (3) Hyponatremia SNOMED Code(s): 12663859 Code(s): E87.1 - HYPO-OSMOLALITY AND HYPONATREMIA Status: Acute Priority : Low Current Visit: Yes Onset Date: 02/13/19 - Problem List Review Problem List Initiated/Reviewed/Updated: Yes - My Orders Last 24 Hours: My Active Orders 02/12/19 13:59 Sodium Chloride 0.9% [Saline Flush] 10 ml FLUSH ASDIRECTED PRN Convert IV to Saline Lock [OM.PC] Routine 02/12/19 17:59 Promethazine [Phenergan] 25 mg PO Q8H PRN 02/12/19 21:00 Zolpidem [Ambien] 5 mg PO BEDTIME 02/13/19 12:47 D Dimer [D-DIMER QUANTITATIVE] [COAG] Routine - Plan Plan:: 02/12/19 teat for bacterial cellulitis and cont zosyn and vanco add valtrex but no vesicles seen in 48 hours he has been here cont sleep meds cont pain meds up as tolerated boh 02/13/19 doing minimally better cellultis improving /cont vancoa nd zosyn / pain controlled and will get up today . disorientation and inability to sleep well / possable apnea . poor appetitie and low alb needs nutrional shake no evidence of pneumonia by my review but interpretation possible small infiltrate left lower lung. he has c rackles on rt a nd mild hypoxia . and snored heavily and startles awake at times . hiccps rule out pulm emboli. plan discussed with patient and will advance feeds and activity . boh
[2019-02-13] MEDS: Ondansetron 4 MG/2 ML SDV IV PRN ×2 (13:25→20:55)
[2019-02-13] MEDS ORDERED: Sodium Chloride 0.9% 1,000 ML IV SCH (13:45)
[2019-02-13] MEDS ORDERED: Iopamidol 755 Mg/ML 100 ML Bottle IVPUSH ONE (14:28)
[2019-02-13] MEDS ORDERED: Sodium Chloride 0.9% 100 ML IV SCH (14:30)
[2019-02-13] MEDS: Zolpidem 5 MG Tab PO SCH (20:28)
[2019-02-13] MEDS: oxyCODONE 5 MG Tab PO PRN (20:29)
[2019-02-13] MEDS: Docusate Sodium 100 MG Cap PO PRN (20:55)
[2019-02-14] MEDS: Piperacillin/Tazobactam 4.5 GM in Sodium Chloride 0.9% 100 ML IV SCH ×3 (01:03→19:24)
[2019-02-14] MEDS: Vancomycin 1 GM, Vancomycin 500 MG in Sodium Chloride 0.9% 500 ML IV SCH ×3 (03:53→19:05)
[2019-02-14] MEDS: Heparin Sodium 5,000 Units/ML Vial SUBCUT SCH ×3 (03:53→20:34)
[2019-02-14] MEDS: valACYclovir 1,000 MG Tab PO SCH ×3 (08:48→20:34)
[2019-02-14] MEDS: Multivitamins,Therapeutic Tab PO SCH (08:48)
[2019-02-14] MEDS: Pantoprazole 40 MG Tab.CR PO SCH ×2 (08:48→20:34)
[2019-02-14] MEDS: Gabapentin 300 MG Cap PO SCH (08:48)
[2019-02-14] MEDS: Nystatin Topical Powder 15 GM Bottle TOP SCH ×4 (08:50→20:43)
[2019-02-14] MEDS ORDERED: Iopamidol 612 MG/ML 100 ML Bottle IVPUSH ONE (12:49)
--- NOTE | 2019-02-14 13:21 | PCM.PN ---
- General Info Date of Service: 02/14/19 Admission Dx/Problem (Free Text): Admission Diagnosis/Problem Admission Diagnosis/Problem Acute febrile illness fever confusion. left lateral thigh cellulitis. l orif nausea/hicccups tachicardia Subjective Update: day 3 i/os 5200/3000 weight up slightly confusion mild and speech clear a nd no neuro deficits. responds and reorientates easily with prompts . minimal cough . mild anorexia . hiccups returned after promethazine given last night . lungs clear other than rt crackles mild inspiratory . no dullness or decreased b.s noted cor mild sinus tach 90-108/ no s3/s4 no murmur abd benign back normal ms left hip redness better a nd induration and pain better . ice pack on . joints normal scar unchanged lab na 134. rest normal cbc unchanged hgn 11.7 crp 21. blood cultures neg. assess. persistent cellulitis improving on vanco and zosyn. no vesicles to suggest shingles / cont acyclovir. confusion mild and cont treatments check d dimer sec to elevated crp and tach/hiccups cont lab check possible repeat ct scan if not improving day 4 vss/ more alert and oriented . pain left hip worse by exam with movement. cellulitis appears better and less induration and tenderness. lungs clear and equal cor hr 80-100. rr 20 minimal crackles cor // rrr without murmur s3/s4 abd hiccups resolved. skin minimal fluctuance around incicion line and lateral gluteus crp 22 wbc still elavated. trough vanco 17 panel 8 normal k low 3.5 with segs. assess. suspect possible abscess or non response except cellulitis looks better / recommend repeat ct scan and discussed with family and with DR Maurice . resp status improved and suspect mild atelectasis/ little evedence of pneumonia and c t scan lungs mostly rules ut p.e. as cause for crp and mild atelectasis improved. hiccups resolved. appetite poor but less persistent nausea and is eating better . no b.m pain control less and a concern for hip problem boh Functional Status: Reports: Pain Controlled, Tolerating Diet, New Symptoms, Incentive Spirometry - Review of Systems General: Reports: No Symptoms, Weakness, Fatigue HEENT: Reports: No Symptoms Pulmonary: Reports: No Symptoms, Shortness of Breath Cardiovascular: Reports: No Symptoms Gastrointestinal: Reports: No Symptoms, Nausea Genitourinary: Reports: No Symptoms Musculoskeletal: Reports: No Symptoms, Joint Pain (left hip in bed or with weight bearing ) Skin: Reports: No Symptoms Neurological: Reports: No Symptoms Psychiatric: Reports: No Symptoms - Patient Data Vitals - Most Recent: Last Vital Signs Temp 36.6 C 02/14/19 12:00 Pulse 94 02/14/19 12:00 Resp 18 02/14/19 12:00 BP 143/98 H 02/14/19 12:00 Pulse Ox 92 L 02/14/19 12:00 Weight - Most Recent: 92.986 kg I&O - Last 24 Hours: Intake & Output 02/13/19 02/14/19 02/14/19 22:59 06:59 14:59 Intake Total 1623 1600 Output Total 400 800 Balance 1223 800 Lab Results Last 24 Hours: Laboratory Results - last 24 hr 02/13/19 02/13/19 02/14/19 Range/Units 13:11 19:40 04:38 WBC 19.35 H (4.23-9.07) K/mm3 RBC 3.95 L (4.63-6.08) M/mm3 Hgb 11.6 L (13.7-17.5) gm/L Hct 35.0 L (40.1-51.0) % MCV 88.6 (79.0-92.2) fl MCH 29.4 (25.7-32.2) pg MCHC 33.1 (32.2-35.5) g/dl RDW Std Deviation 49.6 H (35.1-43.9) fL Plt Count 239 (163-337) K/mm3 MPV 9.8 (9.4-12.3) fl Neut % (Auto) 82.7 H (34.0-67.9) % Lymph % (Auto) 7.0 L (21.8-53.1) % [place] % (Auto) 8.7 (5.3-12.2) % Eos % (Auto) 0.5 L (0.8-7.0) Baso % (Auto) 0.1 (0.1-1.2) % Neut # (Auto) 16.00 H (1.78-5.38) K/mm3 Lymph # (Auto) 1.35 (1.32-3.57) K/mm3 [place] # (Auto) 1.69 H (0.30-0.82) K/mm3 Eos # (Auto) 0.10 (0.04-0.54) K/mm3 Baso # (Auto) 0.02 (0.01-0.08) K/mm3 Manual Slide Review Abnormal smear D-Dimer, Quantitative 1.06 H (0.19-0.50) mg/L Sodium (136-145) mEq/L Potassium (3.5-5.1) mEq/L Chloride (98-107) mEq/L Carbon Dioxide (21-32) mEq/L Anion Gap (5-15) BUN (7-18) mg/dL Creatinine (0.7-1.3) mg/dL Est Cr Clr Drug Dosing mL/min Estimated GFR (MDRD) (>60) mL/min BUN/Creatinine Ratio (14-18) Glucose (80-115) mg/dL Calcium (8.5-10.1) mg/dL Magnesium (1.8-2.4) mg/dl C-Reactive Protein (<1.0) mg/dL Vancomycin Trough 17.1 (10.0-20.0) 02/14/19 Range/Units 04:38 WBC (4.23-9.07) K/mm3 RBC (4.63-6.08) M/mm3 Hgb (13.7-17.5) gm/L Hct (40.1-51.0) % MCV (79.0-92.2) fl MCH (25.7-32.2) pg MCHC (32.2-35.5) g/dl RDW Std Deviation (35.1-43.9) fL Plt Count (163-337) K/mm3 MPV (9.4-12.3) fl Neut % (Auto) (34.0-67.9) % Lymph % (Auto) (21.8-53.1) % [place] % (Auto) (5.3-12.2) % Eos % (Auto) (0.8-7.0) Baso % (Auto) (0.1-1.2) % Neut # (Auto) (1.78-5.38) K/mm3 Lymph # (Auto) (1.32-3.57) K/mm3 [place] # (Auto) (0.30-0.82) K/mm3 Eos # (Auto) (0.04-0.54) K/mm3 Baso # (Auto) (0.01-0.08) K/mm3 Manual Slide Review D-Dimer, Quantitative (0.19-0.50) mg/L Sodium 139 (136-145) mEq/L Potassium 3.5 (3.5-5.1) mEq/L Chloride 105 (98-107) mEq/L Carbon Dioxide 23 (21-32) mEq/L Anion Gap 14.5 (5-15) BUN 10 (7-18) mg/dL Creatinine 0.8 (0.7-1.3) mg/dL Est Cr Clr Drug Dosing 96.74 mL/min Estimated GFR (MDRD) > 60 (>60) mL/min BUN/Creatinine Ratio 12.5 L (14-18) Glucose 123 H (80-115) mg/dL Calcium 8.4 L (8.5-10.1) mg/dL Magnesium 1.9 (1.8-2.4) mg/dl C-Reactive Protein 22.6 H* (<1.0) mg/dL Vancomycin Trough (10.0-20.0) Jorge A Results Last 24 Hours: Microbiology 02/11/19 04:18 Aerobic Blood Culture - Preliminary Blood - Venous NO GROWTH AFTER 3 DAYS Anaerobic Blood Culture - Preliminary NO GROWTH AFTER 3 DAYS 02/11/19 04:05 Aerobic Blood Culture - Preliminary Blood - Venous - Lab Draw NO GROWTH AFTER 3 DAYS Anaerobic Blood Culture - Preliminary NO GROWTH AFTER 3 DAYS 02/11/19 07:42 Urine Culture - Final Urine, Clean Catch MIXED JARED SUGGESTIVE OF CONTAMINATION. Med Orders - Current: Current Medications Acetaminophen (Tylenol) 650 mg PO Q4H PRN PRN Reason: Pain (Mild 1-3)/fever Last Admin: 02/12/19 17:17 Dose: 650 mg Albuterol/Ipratropium (Duoneb 3.0-0.5 Mg/3 Ml) 3 ml NEB Q4H PRN PRN Reason: Shortness Of Breath/wheezing Bisacodyl (Dulcolax) 5 mg PO DAILY PRN PRN Reason: Constipation Docusate Sodium (Colace) 100 mg PO BID PRN PRN Reason: Constipation Last Admin: 02/13/19 20:55 Dose: 100 mg Gabapentin (Neurontin) 300 mg PO DAILY [facility] Last Admin: 02/14/19 08:48 Dose: 300 mg Guaifenesin/Phenylephrine HCl (Robitussin Dm) 10 ml PO Q4H PRN PRN Reason: Cough Last Admin: 02/12/19 17:18 Dose: 10 ml Heparin Sodium (Porcine) (Heparin Sodium) 5,000 units SUBCUT Q8H [facility] Last Admin: 02/14/19 12:50 Dose: 5,000 units Hydralazine HCl (Apresoline) 20 mg IVPUSH Q4H PRN PRN Reason: Hypertension Hydromorphone HCl (Dilaudid) 0.5 mg IVPUSH Q2H PRN PRN Reason: Pain (severe 7-10) Promethazine HCl 6.25 mg/ (Sodium Chloride) 50.25 mls @ 100 mls/hr IV Q6H PRN PRN Reason: Nausea/Vomiting Piperacillin Sod/Tazobactam (Sod 4.5 gm/ Sodium Chloride) 100 mls @ 25 mls/hr IV Q8H [facility] Last Admin: 02/14/19 08:48 Dose: 25 mls/hr Vancomycin HCl 1 gm/Vancomycin HCl 500 mg/ Sodium Chloride 500 mls @ 250 mls/ hr IV Q8H [facility] Last Admin: 02/14/19 03:53 Dose: 250 mls/hr Sodium Chloride (Normal Saline) 100 mls @ 75 mls/hr IV ASDIRECTED [facility] Last Admin: 02/13/19 15:01 Dose: 75 mls/hr Metoprolol Tartrate (Lopressor) 5 mg IVPUSH Q4H PRN PRN Reason: Tachycardia Miscellaneous Information (Remove Patch) 0 ea TRDERM ONETIME ONE Stop: 02/14/19 13:31 Multivitamins (Thera) 1 each PO DAILY [facility] Last Admin: 02/14/19 08:48 Dose: 1 each Nystatin (Nystop) 1 gm TOP TID [facility] Last Admin: 02/14/19 08:50 Dose: 1 gm Ondansetron HCl (Zofran) 4 mg IV Q6H PRN PRN Reason: Nausea/Vomiting Last Admin: 02/13/19 20:55 Dose: 4 mg Oxycodone HCl (Oxycodone) 5 mg PO Q4H PRN PRN Reason: Pain (moderate 4-6) Last Admin: 02/13/19 20:29 Dose: 5 mg Pantoprazole Sodium (Protonix) 40 mg PO Q12HR [facility] Last Admin: 02/14/19 08:48 Dose: 40 mg Polyethylene Glycol (Miralax) 17 gm PO DAILY PRN PRN Reason: Constipation Promethazine HCl (Phenergan) 25 mg PO Q8H PRN PRN Reason: Nausea/Vomiting Last Admin: 02/13/19 20:28 Dose: 25 mg Scopolamine (Transderm-Scop) 1.5 mg TRDERM ONETIME [facility] Last Admin: 02/11/19 13:36 Dose: 1.5 mg Senna/Docusate Sodium (Senna Plus) 1 tab PO BID PRN PRN Reason: Constipation Sodium Chloride (Saline Flush) 10 ml FLUSH ASDIRECTED PRN PRN Reason: Keep Vein Open Last Admin: 02/14/19 13:11 Dose: 10 ml Temazepam (Restoril) 15 mg PO BEDTIME PRN PRN Reason: Sleep Valacyclovir HCl (Valtrex) 1,000 mg PO TID [facility] Last Admin: 02/14/19 08:48 Dose: 1,000 mg Vancomycin HCl (Pharmacy To Dose - Vancomycin) 0 dose .XX ASDIRECTED PRN PRN Reason: RX TO DOSE VANCOMYCIN Zolpidem Tartrate (Ambien) 5 mg PO BEDTIME [facility] Last Admin: 02/13/19 20:28 Dose: 5 mg Discontinued Medications Acetaminophen (Tylenol) 975 mg PO ONETIME ONE Stop: 02/11/19 04:02 Last Admin: 02/11/19 04:51 Dose: 975 mg Dexamethasone (Dexamethasone) Confirm Administered Dose 20 mg .ROUTE .STK-MED ONE Stop: 02/11/19 12:35 Fentanyl (Sublimaze) Confirm Administered Dose 250 mcg .ROUTE .STK-MED ONE Stop: 02/11/19 12:35 Glycopyrrolate () Confirm Administered Dose 1 mg .ROUTE .STK-MED ONE Stop: 02/11/19 13:58 Hydromorphone HCl (Dilaudid) 1 mg IVPUSH ONETIME ONE Stop: 02/11/19 03:55 Last Admin: 02/11/19 04:09 Dose: 1 mg Dextrose/Sodium Chloride (Dextrose 5%-Normal Saline) 1,000 mls @ 125 mls/hr IV ASDIRECTED [facility] Last Admin: 02/11/19 04:09 Dose: 125 mls/hr Linezolid 600 mg/ Premix 300 mls @ 300 mls/hr IV ONETIME ONE Stop: 02/11/19 05:26 Last Admin: 02/11/19 04:51 Dose: 300 mls/hr Vancomycin HCl 2 gm/ Sodium (Chloride) 500 mls @ 250 mls/hr IV ONETIME ONE Stop: 02/11/19 05:20 Last Admin: 02/11/19 06:07 Dose: 250 mls/hr Lactated Ringer's (Ringers, Lactated) 1,000 mls @ 125 mls/hr IV ASDIRECTED [facility] Last Admin: 02/12/19 11:41 Dose: 125 mls/hr Piperacillin Sod/Tazobactam (Sod 4.5 gm/ Sodium Chloride) 100 mls @ 200 mls/hr IV ONETIME ONE Stop: 02/11/19 09:29 Last Admin: 02/11/19 09:50 Dose: 200 mls/hr Vancomycin HCl 500 mg/ Sodium (Chloride) 250 mls @ 166.667 mls/hr IV Q12H [facility] Vancomycin HCl 1 gm/Vancomycin HCl 500 mg/ Sodium Chloride 500 mls @ 250 mls/ hr IV Q12H [facility] Last Admin: 02/12/19 18:09 Dose: Not Given Lactated Ringer's (Ringers, Lactated) Confirm Administered Dose 1,000 mls @ as directed .ROUTE .STK-MED ONE Stop: 02/11/19 12:35 Lidocaine HCl (Xylocaine-Mpf 1%) Confirm Administered Dose 2 mls @ as directed .ROUTE .STK-MED ONE Stop: 02/11/19 12:38 Magnesium Sulfate 4 gm/ Premix 50 mls @ 12.5 mls/hr IV ONETIME ONE Stop: 02/11/19 23:44 Last Admin: 02/11/19 20:23 Dose: 12.5 mls/hr Levofloxacin/Dextrose 750 mg/ (Premix) 150 mls @ 100 mls/hr IV Q24H [facility] Last Admin: 02/11/19 20:48 Dose: Not Given Sodium Chloride (Normal Saline) 500 mls @ 500 mls/hr IV .BOLUS ONE Stop: 02/12/19 18:56 Last Admin: 02/12/19 18:16 Dose: 500 mls/hr Vancomycin HCl 1 gm/Vancomycin HCl 500 mg/ Sodium Chloride 500 mls @ 250 mls/ hr IV Q12H [facility] Sodium Chloride (Normal Saline) 1,000 mls @ 100 mls/hr IV ASDIRECTED [facility] Last Admin: 02/13/19 14:23 Dose: 100 mls/hr Iopamidol (Isovue-370 (76%)) 100 ml IVPUSH ONETIME ONE Stop: 02/13/19 14:29 Last Admin: 02/13/19 15:00 Dose: 100 ml Iopamidol (Isovue-300 (61%)) 100 ml IVPUSH ONETIME ONE Stop: 02/14/19 12:50 Last Admin: 02/14/19 13:11 Dose: 100 ml Lorazepam (Ativan) 0.5 mg IV Q6H PRN PRN Reason: Anxiety Lorazepam (Ativan) 1 mg PO NOW STA Stop: 02/12/19 10:00 Last Admin: 02/12/19 10:16 Dose: 1 mg Metoclopramide HCl (Reglan) 10 mg IVPUSH ONETIME ONE Stop: 02/11/19 03:55 Last Admin: 02/11/19 04:07 Dose: 10 mg Midazolam HCl (Versed 1 Mg/Ml) Confirm Administered Dose 2 mg .ROUTE .STK-MED ONE Stop: 02/11/19 12:35 Neostigmine Methylsulfate (Neostigmine) Confirm Administered Dose 5 mg .ROUTE .STK-MED ONE Stop: 02/11/19 13:58 Ondansetron HCl (Zofran) Confirm Administered Dose 4 mg .ROUTE .STK-MED ONE Stop: 02/11/19 12:35 Potassium Chloride (Klor-Con M20) 60 meq PO ONETIME ONE Stop: 02/11/19 19:45 Last Admin: 02/11/19 20:21 Dose: 60 meq Propofol (Diprivan 20 Ml) Confirm Administered Dose 200 mg .ROUTE .STK-MED ONE Stop: 02/11/19 12:35 Propofol (Diprivan 20 Ml) Confirm Administered Dose 400 mg .ROUTE .STK-MED ONE Stop: 02/11/19 13:30 Rocuronium [place] (Zemuron) Confirm Administered Dose 50 mg .ROUTE .STK-MED ONE Stop: 02/11/19 12:35 Scopolamine (Transderm-Scop) 1.5 mg TOP ONETIME ONE Stop: 02/11/19 10:20 Last Admin: 02/11/19 10:35 Dose: 1.5 mg Vancomycin HCl (Pharmacy To Dose - Vancomycin) 1 dose .XX ASDIRECTED [facility] - Exam Quality Assessment: Supplemental Oxygen, DVT Prophylaxis General: Alert, Oriented HEENT: Pupils Equal, Pupils Reactive, EOMI, Mucous Membr. Moist/[place] Neck: Supple Lungs: Clear to Auscultation, Normal Respiratory Effort Cardiovascular: Regular Rate, Regular Rhythm GI/Abdominal Exam: Normal Bowel Sounds, Soft, Non-Tender, No Organomegaly, No Distention, No Abnormal Bruit, No Mass, Pelvis Stable (Male) Exam: No Hernia, Normal Inspection, Normal Prostate, Circumcised Back Exam: Normal Inspection, Full Range of Motion Extremities: Normal Inspection, Normal Range of Motion, Non-Tender, No Pedal Edema, Normal Capillary Refill Skin: Warm, Dry, Intact Wound/Incisions: Healing Well Neurological: No New Focal Deficit Psy/Mental Status: Alert, Normal Affect, Normal Mood - Problem List & Annotations (1) Abscess or cellulitis of hip SNOMED Code(s): 077752566 Code(s): KMP8513 - Status: Acute Priority: High Current Visit: Yes Onset Date: 02/10/19 (2) Fracture of femoral neck, left, closed SNOMED Code(s): 843603015, 58164078569129411 Code(s): S72.002A - FRACTURE OF UNSP PART OF NECK OF LEFT FEMUR, INIT Status: Acute Priority: High Current Visit: No Onset Date: 12/31/18 Qualifiers: Fracture healing: with routine healing (3) Hyponatremia SNOMED Code(s): 94364136 Code(s): E87.1 - HYPO-OSMOLALITY AND HYPONATREMIA Status: Acute Priority : Low Current Visit: Yes Onset Date: 02/13/19 - Problem List Review Problem List Initiated/Reviewed/Updated: Yes - My Orders Last 24 Hours: My Active Orders 02/13/19 13:44 CTA Chest W WO Contrast [Ang Chest] [CT] Routine c t scan of hip and thigh . labs - Plan Plan:: 02/12/19 teat for bacterial cellulitis and cont zosyn and vanco add valtrex but no vesicles seen in 48 hours he has been here cont sleep meds cont pain meds up as tolerated boh 02/13/19 doing minimally better cellultis improving /cont vancoa nd zosyn / pain controlled and will get up today . disorientation and inability to sleep well / possable apnea . poor appetitie and low alb needs nutrional shake no evidence of pneumonia by my review but interpretation possible small infiltrate left lower lung. he has c rackles on rt a nd mild hypoxia . and snored heavily and startles awake at times . hiccps rule out pulm emboli. plan discussed with patient and will advance feeds and activity . boh
[2019-02-14] MEDS ORDERED: Scopolamine 1.5 MG Transdermal Patch TRDERM ONE (14:30)
[2019-02-14] MEDS ORDERED: Succinylcholine/Normal Saline 100 MG/5 ML Syringe ONE (14:36)
[2019-02-14] MEDS ORDERED: Rocuronium 50 MG/5 ML Vial ONE (14:36)
[2019-02-14] MEDS ORDERED: Lidocaine 1% 6 ML ONE (14:36)
[2019-02-14] MEDS ORDERED: Propofol 200 MG/20 ML SDV ONE (14:36)
[2019-02-14] MEDS ORDERED: Dexamethasone 4 MG/ML 5 ML MDV ONE (14:36)
[2019-02-14] MEDS ORDERED: Ondansetron 4 MG/2 ML SDV ONE (14:36)
[2019-02-14] MEDS ORDERED: diphenhydrAMINE 50 MG/ML SDV ONE (14:36)
[2019-02-14] MEDS ORDERED: Lactated Ringers 2,000 ML ONE (14:36)
[2019-02-14] MEDS ORDERED: fentaNYL 250 MCG/5 ML SDV ONE (14:37)
[2019-02-14] MEDS ORDERED: Midazolam 1 MG/ML 2 ML SDV ONE (14:37)
[2019-02-14] MEDS ORDERED: HYDROmorphone 0.5 MG/0.5 ML Syringe IVPUSH PRN (15:35)
[2019-02-14] MEDS ORDERED: Ondansetron 4 MG/2 ML SDV IVPUSH PRN (15:35)
[2019-02-14] MEDS ORDERED: Haloperidol Lactate 5 MG/ML SDV IVPUSH ONE (15:35)
[2019-02-14] MEDS ORDERED: Albuterol 0.083% 2.5 MG/3 ML Neb Soln NEB ONE (15:35)
[2019-02-14] MEDS ORDERED: fentaNYL 100 MCG/2 ML SDV IVPUSH PRN (15:35)
[2019-02-14] MEDS ORDERED: ePHEDrine 50 MG/ML SDV IVPUSH PRN (15:35)
[2019-02-14] MEDS ORDERED: Phenylephrine/Normal Saline 100 MCG/ML 10 ML Syringe ONE (15:36)
[2019-02-14] MEDS ORDERED: Phenylephrine 1 MG in Sodium Chloride 0.9% 10 ML IV SCH (15:45)
--- NOTE | 2019-02-14 15:56 | HP ---
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 The patient subsequently has been doing very well up until 2 days ago when he was almost 6 weeks out from surgery, when he had increasing left buttock pain, difficult to walk, and reverted to using his walker. He cannot lie or touch his left posterior buttock region. The patient had surgery back on 01/06/2019 and had been doing very well, had been doing everything up to that point and had no other issues. He has suddenly had increasing hip pain as well as fever just recently. He otherwise does state that he has a little bit shortness of breath but otherwise no recent injuries. PHYSICAL EXAMINATION: VITAL SIGNS: Afebrile. Vital signs are stable. GENERAL: The patient is alert. He is in no acute distress. EXTREMITIES: While lying on the exam bed, the patient is able to do a straight leg raise. He has no pain to resisted hip flexion. He has no pain to internal and external rotation of left hip. He does have a rash noted from the central midline of the coccyx region extending laterally towards the incisional region. He has tenderness to palpation over the gluteus. There is no tenderness to palpation over the anterior aspect of the joint. It is a little bit warm near the rash region, but I feel no fluctuance or fluid in that region. The patient is otherwise neurovascularly intact L2 through S1. RADIOGRAPHIC STUDIES: Plain films show well-seated implants. CT scan was done of the left hip, which looking at me and with Dr. Lieberman, we said no definitive abscess, it was just myositis as well as cellulitis. [facility] did state that they thought there was an abscess, but Dr. Lieberman and I both read it as probably just myositis. ASSESSMENT: Left buttock pain. PLAN: At this time, I did discuss with them that secondary to the exam, it does not seem like an infected total joint. His pain is isolated to the gluteal region. He does have a rash. It was noted that we were going to take the patient immediately for surgery that day, and we did get back there, but secondary to the exam and 2 other providers believing that it also looks somewhat like shingles, we decided to wait and see if it cleared itself as the patient otherwise had a negative exam for infected total joint, and according Dr. Lieberman and myself, there was no definitive abscess. The patient subsequently will be admitted to the floor. He did have changes on x-ray to his lungs. He will be treated for pneumonia, and we will do serial exams on the patient. If there are any changes, we will plan on getting a CT scan with and without contrast and possibly doing surgery at that point. The patient at this time and his are in agreement with this plan. ALVINA /[id number]
[2019-02-14] MEDS ORDERED: Vancomycin 1 GM SDV ONE (15:59)
[2019-02-14] MEDS ORDERED: Iodine/Sodium Iodide 2% Tincture 30 ML Bottle ONE (16:21)
[2019-02-14] MEDS ORDERED: HYDROmorphone 0.5 MG/0.5 ML Syringe ONE (16:33)
--- NOTE | 2019-02-14 17:32 | PCM.PREANE ---
Preanesthetic Assessment - Anesthesia/Transfusion/Family Hx Anesthesia History: Prior Anesthesia Reaction (nausea and vomiting) Other Type of Anesthesia Reaction Comment: nausea and vomiting with general Family History of Anesthesia Reaction: No Transfusion History: No Prior Transfusion(s) Type of Transfusion Reactions: Reports: Other (see below) - Review of Systems Other: Reports: Easy Bruising - Physical Assessment NPO Status Date: 02/11/19 NPO Status Time: 11:00 Vital Signs: Last Vital Signs Temp 38.1 C 02/14/19 15:06 Pulse 94 02/14/19 15:06 Resp 18 02/14/19 15:06 BP 138/65 02/14/19 15:06 Pulse Ox 92 L 02/14/19 15:06 Height: 1.8 m Weight: 92.986 kg - Lab Values: Laboratory Last Values WBC 19.35 K/mm3 (4.23-9.07) H 02/14/19 04:38 RBC 3.95 M/mm3 (4.63-6.08) L 02/14/19 04:38 Hgb 11.6 gm/L (13.7-17.5) L 02/14/19 04:38 Hct 35.0 % (40.1-51.0) L 02/14/19 04:38 MCV 88.6 fl (79.0-92.2) 02/14/19 04:38 MCH 29.4 pg (25.7-32.2) 02/14/19 04:38 MCHC 33.1 g/dl (32.2-35.5) 02/14/19 04:38 RDW Std Deviation 49.6 fL (35.1-43.9) H 02/14/19 04:38 Plt Count 239 K/mm3 (163-337) 02/14/19 04:38 MPV 9.8 fl (9.4-12.3) 02/14/19 04:38 Neut % (Auto) 82.7 % (34.0-67.9) H 02/14/19 04:38 Lymph % (Auto) 7.0 % (21.8-53.1) L 02/14/19 04:38 [place] % (Auto) 8.7 % (5.3-12.2) 02/14/19 04:38 Eos % (Auto) 0.5 (0.8-7.0) L 02/14/19 04:38 Baso % (Auto) 0.1 % (0.1-1.2) 02/14/19 04:38 Neut # (Auto) 16.00 K/mm3 (1.78-5.38) H 02/14/19 04:38 Lymph # (Auto) 1.35 K/mm3 (1.32-3.57) 02/14/19 04:38 [place] # (Auto) 1.69 K/mm3 (0.30-0.82) H 02/14/19 04:38 Eos # (Auto) 0.10 K/mm3 (0.04-0.54) 02/14/19 04:38 Baso # (Auto) 0.02 K/mm3 (0.01-0.08) 02/14/19 04:38 Neutrophils % (Manual) 67 % (40-60) H 02/11/19 04:05 Band Neutrophils % 21 % (0-10) H 02/11/19 04:05 Lymphocytes % (Manual) 3 % (20-40) L 02/11/19 04:05 Atypical Lymphs % 0 % 02/11/19 04:05 Monocytes % (Manual) 9 % (2-10) 02/11/19 04:05 Eosinophils % (Manual) 0 % (0.8-7.0) L 02/11/19 04:05 Basophils % (Manual) 0 (0.2-1.2) L 02/11/19 04:05 Manual Slide Review Abnormal smear 02/14/19 04:38 Toxic Granulation 1+ slight 02/11/19 04:05 Platelet Estimate Adequate 02/11/19 04:05 Plt Morphology Comment Normal 02/11/19 04:05 RBC Morph Comment Normal 02/11/19 04:05 ESR 23 mm/hr (0-15) H 02/11/19 04:05 PT 12.5 SECONDS (9.7-12.0) H 02/11/19 04:05 INR 1.16 02/11/19 04:05 APTT 33 SECONDS (22-31) H 02/11/19 04:05 D-Dimer, Quantitative 1.06 mg/L (0.19-0.50) H 02/13/19 13:11 Sodium 139 mEq/L (136-145) 02/14/19 04:38 Potassium 3.5 mEq/L (3.5-5.1) 02/14/19 04:38 Chloride 105 mEq/L (98-107) 02/14/19 04:38 Carbon Dioxide 23 mEq/L (21-32) 02/14/19 04:38 Anion Gap 14.5 (5-15) 02/14/19 04:38 BUN 10 mg/dL (7-18) 02/14/19 04:38 Creatinine 0.8 mg/dL (0.7-1.3) 02/14/19 04:38 Est Cr Clr Drug Dosing 96.74 mL/min 02/14/19 04:38 Estimated GFR (MDRD) > 60 mL/min (>60) 02/14/19 04:38 BUN/Creatinine Ratio 12.5 (14-18) L 02/14/19 04:38 Glucose 123 mg/dL (80-115) H 02/14/19 04:38 Lactic Acid 1.1 mmol/L (0.4-2.0) 02/11/19 04:05 Calcium 8.4 mg/dL (8.5-10.1) L 02/14/19 04:38 Magnesium 1.9 mg/dl (1.8-2.4) 02/14/19 04:38 Total Bilirubin 0.4 mg/dL (0.2-1.0) 02/12/19 15:08 AST 14 U/L (15-37) L 02/12/19 15:08 ALT 24 U/L (16-63) 02/12/19 15:08 Alkaline Phosphatase 84 U/L (46-116) 02/12/19 15:08 C-Reactive Protein 22.6 mg/dL (<1.0) H* 02/14/19 04:38 NT-Pro-B Natriuret Pep 386 pg/mL (0-125) H 02/11/19 04:05 Total Protein 6.1 g/dl (6.4-8.2) L 02/12/19 15:08 Albumin 2.4 g/dl (3.4-5.0) L 02/12/19 15:08 Globulin 3.7 gm/dL 02/12/19 15:08 Albumin/Globulin Ratio 0.7 (1-2) L 02/12/19 15:08 Urine Color Other (Yellow) H 02/11/19 07:42 Urine Appearance Slt cloudy (Clear) H 02/11/19 07:42 Urine pH 5.5 (5.0-8.0) 02/11/19 07:42 Ur Specific [place] > or = 1.030 (1.005-1.030) 02/11/19 07:42 Urine Protein 2+ (Negative) H 02/11/19 07:42 Urine Glucose (UA) Negative (Negative) 02/11/19 07:42 Urine Ketones Negative (Negative) 02/11/19 07:42 Urine Occult Blood Negative (Negative) 02/11/19 07:42 Urine Nitrite Negative (Negative) 02/11/19 07:42 Urine Bilirubin Negative (Negative) 02/11/19 07:42 Urine Urobilinogen 0.2 (0.2-1.0) 02/11/19 07:42 Ur Leukocyte Esterase Negative (Negative) 02/11/19 07:42 Urine RBC 0-5 /hpf (0-5) 02/11/19 07:42 Urine WBC 0-5 /hpf (0-5) 02/11/19 07:42 Ur Epithelial Cells 0-5 /hpf (0-5) 02/11/19 07:42 Urine Bacteria Few /hpf (FEW) 02/11/19 07:42 Urine Mucus Moderate /hpf (FEW) H 02/11/19 07:42 Vancomycin Trough 17.1 (10.0-20.0) 02/13/19 19:40 Blood Type O POSITIVE 02/11/19 04:05 Gel Antibody Screen Negative 02/11/19 04:05 - Allergies Allergies/Adverse Reactions: Allergies Allergy/AdvReac Type Severity Reaction Status Date / Time lorazepam [From Ativan] Allergy Hallucinati Verified 02/13/19 07:02 ons morphine Allergy Difficulty Verified 02/11/19 03:49 Breathing - Blood Blood Available: No Product(s) Available: None PreAnesthesia Questionnaire HEENT History: Reports: Hard of Hearing, Impaired Vision Cardiovascular History: Reports: High Cholesterol Other Cardiovascular History: statins made muscle aches Respiratory History: Reports: None Gastrointestinal History: Reports: GERD, Other (See Below) Other Gastrointestinal History: Inguinal hernia Genitourinary History: Reports: Other (See Below) Other Genitourinary History: prostate cancer- had surgery- clear Musculoskeletal History: Reports: Other (See Below) Other Musculoskeletal History: back surgery; 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 Neurological History: Reports: Other (See Below) (left foot drop--since lumbar spine surgery in May 2018.) Oncologic (Cancer) History: Reports: Prostate - Infectious Disease History Infectious Disease History: Reports: Chicken Pox - Past Surgical History HEENT Surgical History: Reports: Naso-Sinus Surgery GI Surgical History: Reports: Hernia, Inguinal Other Male Surgeries/Procedures: prostate cancer Neurological Surgical History: Reports: Other (See Below) (back surgery) Musculoskeletal Surgical History: Reports: Shoulder Surgery, Other (See Below) ( 2 ring finger amputations and ankle) - SUBSTANCE USE Smoking Status *Q: Light Tobacco Smoker Tobacco Use Within Last Twelve Months: Cigars Days Per Week of Alcohol Use: 2 Number of Drinks Per Day: 2 Total Drinks Per Week: 4 Recreational Drug Use History: No - HOME MEDS Home Medications: Home Meds Aspirin 325 mg PO DAILY 02/11/19 [History] Gabapentin [Neurontin] 300 mg PO DAILY 02/11/19 [History] Multivitamin [Multivitamins] 1 cap PO DAILY 02/11/19 [History] Naproxen Sodium [Aleve] 220 mg PO Q6H 02/11/19 [History] - CURRENT (IN HOUSE) MEDS Current Meds: Current Medications Acetaminophen (Tylenol) 650 mg PO Q4H PRN PRN Reason: Pain (Mild 1-3)/fever Last Admin: 02/12/19 17:17 Dose: 650 mg Albuterol/Ipratropium (Duoneb 3.0-0.5 Mg/3 Ml) 3 ml NEB Q4H PRN PRN Reason: Shortness Of Breath/wheezing Bisacodyl (Dulcolax) 5 mg PO DAILY PRN PRN Reason: Constipation Docusate Sodium (Colace) 100 mg PO BID PRN PRN Reason: Constipation Last Admin: 02/13/19 20:55 Dose: 100 mg Ephedrine Sulfate (Ephedrine Sulfate) 5 mg IVPUSH ASDIRECTED PRN PRN Reason: Hypotension Fentanyl (Sublimaze) 50 mcg IVPUSH Q5M PRN PRN Reason: Pain Gabapentin (Neurontin) 300 mg PO DAILY [facility] Last Admin: 09/08/19 08:48 Dose: 300 mg Guaifenesin/Phenylephrine HCl (Robitussin Dm) 10 ml PO Q4H PRN PRN Reason: Cough Last Admin: 02/12/19 17:18 Dose: 10 ml Heparin Sodium (Porcine) (Heparin Sodium) 5,000 units SUBCUT Q8H [facility] Last Admin: 02/14/19 12:50 Dose: 5,000 units Hydralazine HCl (Apresoline) 20 mg IVPUSH Q4H PRN PRN Reason: Hypertension Hydromorphone HCl (Dilaudid) 0.5 mg IVPUSH Q2H PRN PRN Reason: Pain (severe 7-10) Last Admin: 02/14/19 13:33 Dose: 0.5 mg Hydromorphone HCl (Dilaudid) 0.5 mg IVPUSH Q15M PRN PRN Reason: Pain (severe 7-10) Promethazine HCl 6.25 mg/ (Sodium Chloride) 50.25 mls @ 100 mls/hr IV Q6H PRN PRN Reason: Nausea/Vomiting Piperacillin Sod/Tazobactam (Sod 4.5 gm/ Sodium Chloride) 100 mls @ 25 mls/hr IV Q8H [facility] Last Admin: 02/14/19 08:48 Dose: 25 mls/hr Vancomycin HCl 1 gm/Vancomycin HCl 500 mg/ Sodium Chloride 500 mls @ 250 mls/ hr IV Q8H [facility] Last Admin: 02/14/19 14:37 Dose: Not Given Sodium Chloride (Normal Saline) 100 mls @ 75 mls/hr IV ASDIRECTED [facility] Last Admin: 02/13/19 15:01 Dose: 75 mls/hr Sodium Chloride (Normal Saline) 25 mls @ 25 mls/hr IV ASDIRECTED [facility] Phenylephrine HCl 1 mg/ Sodium (Chloride) 10.1 mls @ 1 mls/sec IV TITRATE [facility]; Protocol Metoprolol Tartrate (Lopressor) 5 mg IVPUSH Q4H PRN PRN Reason: Tachycardia Miscellaneous Information (Remove Patch) 0 ea TRDERM ONETIME ONE Stop: 02/17/19 14:31 Multivitamins (Thera) 1 each PO DAILY [facility] Last Admin: 02/14/19 08:48 Dose: 1 each Nystatin (Nystop) 1 gm TOP TID [facility] Last Admin: 02/14/19 08:50 Dose: 1 gm Ondansetron HCl (Zofran) 4 mg IV Q6H PRN PRN Reason: Nausea/Vomiting Last Admin: 02/13/19 20:55 Dose: 4 mg Ondansetron HCl (Zofran) 4 mg IVPUSH ONETIME PRN PRN Reason: Nausea/Vomiting Oxycodone HCl (Oxycodone) 5 mg PO Q4H PRN PRN Reason: Pain (moderate 4-6) Last Admin: 02/13/19 20:29 Dose: 5 mg Pantoprazole Sodium (Protonix) 40 mg PO Q12HR [facility] Last Admin: 02/14/19 08:48 Dose: 40 mg Polyethylene Glycol (Miralax) 17 gm PO DAILY PRN PRN Reason: Constipation Promethazine HCl (Phenergan) 25 mg PO Q8H PRN PRN Reason: Nausea/Vomiting Last Admin: 02/13/19 20:28 Dose: 25 mg Senna/Docusate Sodium (Senna Plus) 1 tab PO BID PRN PRN Reason: Constipation Sodium Chloride (Saline Flush) 10 ml FLUSH ASDIRECTED PRN PRN Reason: Keep Vein Open Last Admin: 02/14/19 13:11 Dose: 10 ml Temazepam (Restoril) 15 mg PO BEDTIME PRN PRN Reason: Sleep Valacyclovir HCl (Valtrex) 1,000 mg PO TID [facility] Last Admin: 02/14/19 08:48 Dose: 1,000 mg Vancomycin HCl (Pharmacy To Dose - Vancomycin) 0 dose .XX ASDIRECTED PRN PRN Reason: RX TO DOSE VANCOMYCIN Zolpidem Tartrate (Ambien) 5 mg PO BEDTIME [facility] Last Admin: 02/13/19 20:28 Dose: 5 mg Discontinued Medications Acetaminophen (Tylenol) 975 mg PO ONETIME ONE Stop: 02/11/19 04:02 Last Admin: 02/11/19 04:51 Dose: 975 mg Albuterol (Proventil Neb Soln) 2.5 mg NEB ONETIME ONE Stop: 02/14/19 15:36 Last Admin: 02/14/19 17:28 Dose: 2.5 mg Dexamethasone (Dexamethasone) Confirm Administered Dose 20 mg .ROUTE .STK-MED ONE Stop: 02/11/19 12:35 Dexamethasone (Dexamethasone) Confirm Administered Dose 20 mg .ROUTE .STK-MED ONE Stop: 02/14/19 14:37 Diphenhydramine HCl (Benadryl) Confirm Administered Dose 50 mg .ROUTE .STK-MED ONE Stop: 02/14/19 14:37 Fentanyl (Sublimaze) Confirm Administered Dose 250 mcg .ROUTE .STK-MED ONE Stop: 02/11/19 12:35 Fentanyl (Sublimaze) Confirm Administered Dose 250 mcg .ROUTE .STK-MED ONE Stop: 02/14/19 14:38 Glycopyrrolate () Confirm Administered Dose 1 mg .ROUTE .STK-MED ONE Stop: 02/11/19 13:58 Haloperidol Lactate (Haldol) 1 mg IVPUSH ONETIME ONE Stop: 02/14/19 15:36 Hydromorphone HCl (Dilaudid) 1 mg IVPUSH ONETIME ONE Stop: 02/11/19 03:55 Last Admin: 02/11/19 04:09 Dose: 1 mg Hydromorphone HCl (Dilaudid) Confirm Administered Dose 0.5 mg .ROUTE .STK-MED ONE Stop: 02/14/19 16:34 Dextrose/Sodium Chloride (Dextrose 5%-Normal Saline) 1,000 mls @ 125 mls/hr IV ASDIRECTED [facility] Last Admin: 02/11/19 04:09 Dose: 125 mls/hr Linezolid 600 mg/ Premix 300 mls @ 300 mls/hr IV ONETIME ONE Stop: 02/11/19 05:26 Last Admin: 02/11/19 04:51 Dose: 300 mls/hr Vancomycin HCl 2 gm/ Sodium (Chloride) 500 mls @ 250 mls/hr IV ONETIME ONE Stop: 02/11/19 05:20 Last Admin: 02/11/19 06:07 Dose: 250 mls/hr Lactated Ringer's (Ringers, Lactated) 1,000 mls @ 125 mls/hr IV ASDIRECTED [facility] Last Admin: 02/12/19 11:41 Dose: 125 mls/hr Piperacillin Sod/Tazobactam (Sod 4.5 gm/ Sodium Chloride) 100 mls @ 200 mls/hr IV ONETIME ONE Stop: 02/11/19 09:29 Last Admin: 02/11/19 09:50 Dose: 200 mls/hr Vancomycin HCl 500 mg/ Sodium (Chloride) 250 mls @ 166.667 mls/hr IV Q12H [facility] Vancomycin HCl 1 gm/Vancomycin HCl 500 mg/ Sodium Chloride 500 mls @ 250 mls/ hr IV Q12H [facility] Last Admin: 02/12/19 18:09 Dose: Not Given Lactated Ringer's (Ringers, Lactated) Confirm Administered Dose 1,000 mls @ as directed .ROUTE .STK-MED ONE Stop: 02/11/19 12:35 Lidocaine HCl (Xylocaine-Mpf 1%) Confirm Administered Dose 2 mls @ as directed .ROUTE .STK-MED ONE Stop: 02/11/19 12:38 Magnesium Sulfate 4 gm/ Premix 50 mls @ 12.5 mls/hr IV ONETIME ONE Stop: 02/11/19 23:44 Last Admin: 02/11/19 20:23 Dose: 12.5 mls/hr Levofloxacin/Dextrose 750 mg/ (Premix) 150 mls @ 100 mls/hr IV Q24H [facility] Last Admin: 02/11/19 20:48 Dose: Not Given Sodium Chloride (Normal Saline) 500 mls @ 500 mls/hr IV .BOLUS ONE Stop: 02/12/19 18:56 Last Admin: 02/12/19 18:16 Dose: 500 mls/hr Vancomycin HCl 1 gm/Vancomycin HCl 500 mg/ Sodium Chloride 500 mls @ 250 mls/ hr IV Q12H [facility] Sodium Chloride (Normal Saline) 1,000 mls @ 100 mls/hr IV ASDIRECTED [facility] Last Admin: 02/13/19 14:23 Dose: 100 mls/hr Lidocaine HCl (Xylocaine-Mpf 1%) Confirm Administered Dose 6 mls @ as directed .ROUTE .STK-MED ONE Stop: 02/14/19 14:37 Lactated Ringer's (Ringers, Lactated) Confirm Administered Dose 2,000 mls @ as directed .ROUTE .STK-MED ONE Stop: 02/14/19 14:37 Iodine (Iodine 2% Mild Tincture) Confirm Administered Dose 30 ml .ROUTE .STK- MED ONE Stop: 02/14/19 16:22 Iopamidol (Isovue-370 (76%)) 100 ml IVPUSH ONETIME ONE Stop: 02/13/19 14:29 Last Admin: 02/13/19 15:00 Dose: 100 ml Iopamidol (Isovue-300 (61%)) 100 ml IVPUSH ONETIME ONE Stop: 02/14/19 12:50 Last Admin: 02/14/19 13:11 Dose: 100 ml Lorazepam (Ativan) 0.5 mg IV Q6H PRN PRN Reason: Anxiety Lorazepam (Ativan) 1 mg PO NOW STA Stop: 02/12/19 10:00 Last Admin: 02/12/19 10:16 Dose: 1 mg Metoclopramide HCl (Reglan) 10 mg IVPUSH ONETIME ONE Stop: 02/11/19 03:55 Last Admin: 02/11/19 04:07 Dose: 10 mg Midazolam HCl (Versed 1 Mg/Ml) Confirm Administered Dose 2 mg .ROUTE .STK-MED ONE Stop: 02/11/19 12:35 Midazolam HCl (Versed 1 Mg/Ml) Confirm Administered Dose 2 mg .ROUTE .STK-MED ONE Stop: 02/14/19 14:38 Miscellaneous Information (Remove Patch) 0 ea TRDERM ONETIME ONE Stop: 02/14/19 13:31 Last Admin: 02/14/19 13:35 Dose: Not Given Neostigmine Methylsulfate (Neostigmine) Confirm Administered Dose 5 mg .ROUTE .STK-MED ONE Stop: 02/11/19 13:58 Ondansetron HCl (Zofran) Confirm Administered Dose 4 mg .ROUTE .STK-MED ONE Stop: 02/11/19 12:35 Ondansetron HCl (Zofran) Confirm Administered Dose 4 mg .ROUTE .STK-MED ONE Stop: 02/14/19 14:37 Phenylephrine HCl (Phenylephrine In Ns 100 Mcg/Ml) Confirm Administered Dose 1 mg .ROUTE .STK-MED ONE Stop: 02/14/19 15:37 Potassium Chloride (Klor-Con M20) 60 meq PO ONETIME ONE Stop: 02/11/19 19:45 Last Admin: 02/11/19 20:21 Dose: 60 meq Propofol (Diprivan 20 Ml) Confirm Administered Dose 200 mg .ROUTE .STK-MED ONE Stop: 02/11/19 12:35 Propofol (Diprivan 20 Ml) Confirm Administered Dose 400 mg .ROUTE .STK-MED ONE Stop: 02/11/19 13:30 Propofol (Diprivan 20 Ml) Confirm Administered Dose 200 mg .ROUTE .STK-MED ONE Stop: 02/14/19 14:37 Rocuronium [place] (Zemuron) Confirm Administered Dose 50 mg .ROUTE .STK-MED ONE Stop: 02/11/19 12:35 Rocuronium [place] (Zemuron) Confirm Administered Dose 50 mg .ROUTE .STK-MED ONE Stop: 02/14/19 14:37 Scopolamine (Transderm-Scop) 1.5 mg TOP ONETIME ONE Stop: 02/11/19 10:20 Last Admin: 02/11/19 10:35 Dose: 1.5 mg Scopolamine (Transderm-Scop) 1.5 mg TRDERM ONETIME [facility] Last Admin: 02/11/19 13:36 Dose: 1.5 mg Scopolamine (Transderm-Scop) 1.5 mg TRDERM ONETIME ONE Stop: 02/14/19 14:31 Last Admin: 02/14/19 14:40 Dose: 1.5 mg Succinylcholine Chloride (Succinylcholine In Ns Pf) Confirm Administered Dose 100 mg .ROUTE .STK-MED ONE Stop: 02/14/19 14:37 Vancomycin HCl (Pharmacy To Dose - Vancomycin) 1 dose .XX ASDIRECTED [facility] Vancomycin HCl (Vancomycin) Confirm Administered Dose 1 gm .ROUTE .STK-MED ONE Stop: 02/14/19 16:00 POST ANESTHESIA ASSESSMENT - MENTAL STATUS Mental Status: Alert, Oriented - VITAL SIGNS Vital Signs: Last Vital Signs Temp 38.1 C 02/14/19 15:06 Pulse 94 02/14/19 15:06 Resp 18 02/14/19 15:06 BP 138/65 02/14/19 15:06 Pulse Ox 92 L 02/14/19 15:06 - RESPIRATORY Respiratory Status: Respiratory Rate WNL, Airway Patent, O2 Saturation Stable, Supplemental Oxygen - CARDIOVASCULAR CV Status: Pulse Rate WNL, Blood Pressure Stable - GASTROINTESTINAL GI Status: No Symptoms - POST OP HYDRATION Hydration Status: Adequate & Stable - OBSERVATIONS Free Text/Narrative:: Patient awake orientated times 3 and denies any c/o pain or nausea at this time.
[2019-02-14] MEDS ORDERED: Sodium Chloride 0.9% 1,000 ML IV SCH (19:00)
[2019-02-14] MEDS: Zolpidem 5 MG Tab PO SCH (20:34)
[2019-02-14] MEDS: Docusate Sodium 100 MG Cap PO PRN (20:51)
[2019-02-15] MEDS: Piperacillin/Tazobactam 4.5 GM in Sodium Chloride 0.9% 100 ML IV SCH ×3 (00:39→16:30)
[2019-02-15] MEDS: Heparin Sodium 5,000 Units/ML Vial SUBCUT SCH ×3 (03:56→20:21)
[2019-02-15] MEDS: Vancomycin 1 GM, Vancomycin 500 MG in Sodium Chloride 0.9% 500 ML IV SCH ×3 (03:57→20:31)
[2019-02-15] MEDS: Gabapentin 300 MG Cap PO SCH (09:00)
[2019-02-15] MEDS: Multivitamins,Therapeutic Tab PO SCH (09:00)
[2019-02-15] MEDS: Pantoprazole 40 MG Tab.CR PO SCH ×2 (09:00→20:22)
[2019-02-15] MEDS: valACYclovir 1,000 MG Tab PO SCH ×3 (09:00→20:22)
[2019-02-15] MEDS: Nystatin Topical Powder 15 GM Bottle TOP SCH ×3 (09:04→20:22)
--- NOTE | 2019-02-15 09:22 | CT ---
CT chest Technique: Multiple axial sections were obtained from above the lung apices inferiorly through the lung bases. Intravenous contrast was utilized. Study has been performed as a pulmonary angiogram protocol. Findings: Pulmonary arteries are less than optimally opacified. No filling defects are seen within the main or segmental branches. Smaller subsegmental pulmonary emboli could be missed. Small lymph nodes scattered within the mediastinum and hilar regions. These are most likely within normal limits for the patient's age. Small bilateral pleural effusions are noted as well as adjacent compressive atelectasis. Focal curvilinear density is seen within the right middle lobe most likely due to fluid within the minor fissure. Slightly irregular nodule is identified within the superior segment of the left lower lung measuring 1.5 cm in size. This measurement was made on the coronal images. Haziness is noted within the lungs most likely due to mild pulmonary vascular congestion. Heart size is mildly enlarged. No acute bony abnormality is identified. Impression: 1. Small bilateral pleural effusions and mild adjacent atelectasis within both lung bases. 2. Hazy ground-glass appearance most likely representing mild pulmonary vascular congestion. 3. Suboptimal opacification of the pulmonary arteries. As mentioned above, no findings of pulmonary embolism within the main or segmental branches. Smaller subsegmental pulmonary emboli could be missed. 4. 1.5 cm nodule within the superior segment of the left lower lung. Recommend repeat noncontrast CT in 3 months to see if this finding persists. Repeat study would occur in May,. Diagnostic code #9 I agree with preliminary report from [facility], finalized on 02/13/19, 4:18 PM Central Time
--- NOTE | 2019-02-15 09:42 | CT ---
CT left hip Technique: Multiple axial sections were obtained through the left hip without and with intravenous contrast. Reconstructed coronal and sagittal images were reviewed. Comparison: Prior noncontrast hip CT study of 02/11/19. Findings: Fluid-containing structure is now seen within the left gluteal muscle measuring 3.7 x 8.8 x 15.3 cm. This is mostly lateral in location but as this finding extends distally it does extend posterior to the femur. No definite extension into the hip joint is seen. This represents an interval change from prior study and is felt compatible with abscess. Increased density is noted within the subcutaneous fat compatible with cellulitis. Left hip prosthesis is noted. No focal bony erosion is seen. Impression: 1. Fluid-filled structure felt compatible with abscess as described above. This represents an interval change from prior exam. 2. Mild subcutaneous cellulitis. Diagnostic code #5 MTDD
--- NOTE | 2019-02-15 09:56 | PCM48HPAN ---
Post Anesthesia Note - EVALUATION WITHIN 48HRS OF ANESTHETIC Vital Signs in Normal Range: Yes Patient Participated in Evaluation: Yes Respiratory Function Stable: Yes Airway Patent: Yes Cardiovascular Function Stable: Yes Hydration Status Stable: Yes Pain Control Satisfactory: Yes Nausea and Vomiting Control Satisfactory: No (Persistant feeling of Nausea) Mental Status Recovered: Yes Vital Signs: Last Vital Signs Temp 36.4 C 02/15/19 08:00 Pulse 92 02/15/19 08:00 Resp 18 02/15/19 08:00 BP 122/80 02/15/19 08:00 Pulse Ox 97 02/15/19 08:00
--- NOTE | 2019-02-15 12:25 | PCM.CONSN ---
- General Info Date of Service: 02/15/19 Admission Dx/Problem (Free Text): Admission Diagnosis/Problem Admission Diagnosis/Problem Acute febrile illness fever confusion. left lateral thigh cellulitis. l orif nausea/hicccups tachicardia Subjective Update: POSTOP DAY 1 for incision and drainage. Patient is doing well with decreased pain, white count, and C-reactive protein. Patient is requiring more O2 this morning and is up to 4 L nasal cannula. He denies any shortness of breath, cough , or chest pain. - Review of Systems General: Reports: No Symptoms HEENT: Reports: No Symptoms Pulmonary: Reports: No Symptoms Cardiovascular: Reports: No Symptoms Gastrointestinal: Reports: No Symptoms - Patient Data Vitals - Most Recent: Last Vital Signs Temp 97.5 F 02/15/19 08:00 Pulse 92 02/15/19 08:00 Resp 18 02/15/19 08:00 BP 122/80 02/15/19 08:00 Pulse Ox 97 02/15/19 08:00 Weight - Most Recent: 206 lb I&O - Last 24 Hours: Intake & Output 02/14/19 02/15/19 02/15/19 22:59 06:59 14:59 Intake Total 100 600 Output Total 400 Balance 100 200 Lab Results Last 24 Hours: Laboratory Results - last 24 hr 02/15/19 02/15/19 02/15/19 Range/Units 05:14 05:14 11:04 WBC 17.07 H (4.23-9.07) K/mm3 RBC 3.52 L (4.63-6.08) M/mm3 Hgb 10.2 L (13.7-17.5) gm/L Hct 31.4 L (40.1-51.0) % MCV 89.2 (79.0-92.2) fl MCH 29.0 (25.7-32.2) pg MCHC 32.5 (32.2-35.5) g/dl RDW Std Deviation 49.7 H (35.1-43.9) fL Plt Count 266 (163-337) K/mm3 MPV 9.7 (9.4-12.3) fl Neut % (Auto) 84.3 H (34.0-67.9) % Lymph % (Auto) 5.9 L (21.8-53.1) % Lassen % (Auto) 8.3 (5.3-12.2) % Eos % (Auto) 0.1 L (0.8-7.0) Baso % (Auto) 0.1 (0.1-1.2) % Neut # (Auto) 14.40 H (1.78-5.38) K/mm3 Lymph # (Auto) 1.01 L (1.32-3.57) K/mm3 [place]assen # (Auto) 1.42 H (0.30-0.82) K/mm3 Eos # (Auto) 0.01 L (0.04-0.54) K/mm3 Baso # (Auto) 0.01 (0.01-0.08) K/mm3 Manual Slide Review Abnormal smear Sodium 142 (136-145) mEq/L Potassium 3.9 (3.5-5.1) mEq/L Chloride 106 (98-107) mEq/L Carbon Dioxide 24 (21-32) mEq/L Anion Gap 15.9 H (5-15) BUN 11 (7-18) mg/dL Creatinine 0.8 (0.7-1.3) mg/dL Est Cr Clr Drug Dosing 95.43 mL/min Estimated GFR (MDRD) > 60 (>60) mL/min BUN/Creatinine Ratio 13.8 L (14-18) Glucose 176 H (80-115) mg/dL Calcium 8.5 (8.5-10.1) mg/dL Magnesium 2.0 (1.8-2.4) mg/dl C-Reactive Protein 16.5 H* (<1.0) mg/dL Vancomycin Trough 16.0 (10.0-20.0) Jorge A Results Last 24 Hours: Microbiology 02/14/19 15:50 Gram Stain - Final Hip, Left Anaerobic Culture - Preliminary Beta Streptococcus Group G 02/14/19 15:52 Gram Stain - Final Hip, Left Anaerobic Culture - Preliminary 02/14/19 15:51 Gram Stain - Final Hip, Left Anaerobic Culture - Preliminary 02/11/19 04:18 Aerobic Blood Culture - Preliminary Blood - Venous NO GROWTH AFTER 4 DAYS Anaerobic Blood Culture - Preliminary NO GROWTH AFTER 4 DAYS 02/11/19 04:05 Aerobic Blood Culture - Preliminary Blood - Venous - Lab Draw NO GROWTH AFTER 4 DAYS Anaerobic Blood Culture - Preliminary NO GROWTH AFTER 4 DAYS Med Orders - Current: Current Medications Acetaminophen (Tylenol) 650 mg PO Q4H PRN PRN Reason: Pain (Mild 1-3)/fever Last Admin: 02/12/19 17:17 Dose: 650 mg Albuterol/Ipratropium (Duoneb 3.0-0.5 Mg/3 Ml) 3 ml NEB Q4H PRN PRN Reason: Shortness Of Breath/wheezing Bisacodyl (Dulcolax) 5 mg PO DAILY PRN PRN Reason: Constipation Docusate Sodium (Colace) 100 mg PO BID PRN PRN Reason: Constipation Last Admin: 02/14/19 20:51 Dose: 100 mg Ephedrine Sulfate (Ephedrine Sulfate) 5 mg IVPUSH ASDIRECTED PRN PRN Reason: Hypotension Gabapentin (Neurontin) 300 mg PO DAILY [facility] Last Admin: 02/15/19 09:00 Dose: 300 mg Guaifenesin/Phenylephrine HCl (Robitussin Dm) 10 ml PO Q4H PRN PRN Reason: Cough Last Admin: 02/12/19 17:18 Dose: 10 ml Heparin Sodium (Porcine) (Heparin Sodium) 5,000 units SUBCUT Q8H [facility] Last Admin: 02/15/19 03:56 Dose: 5,000 units Hydralazine HCl (Apresoline) 20 mg IVPUSH Q4H PRN PRN Reason: Hypertension Hydromorphone HCl (Dilaudid) 0.5 mg IVPUSH Q2H PRN PRN Reason: Pain (severe 7-10) Last Admin: 02/14/19 13:33 Dose: 0.5 mg Promethazine HCl 6.25 mg/ (Sodium Chloride) 50.25 mls @ 100 mls/hr IV Q6H PRN PRN Reason: Nausea/Vomiting Piperacillin Sod/Tazobactam (Sod 4.5 gm/ Sodium Chloride) 100 mls @ 25 mls/hr IV Q8H [facility] Last Admin: 02/15/19 08:54 Dose: 25 mls/hr Vancomycin HCl 1 gm/Vancomycin HCl 500 mg/ Sodium Chloride 500 mls @ 250 mls/ hr IV Q8H [facility] Last Admin: 02/15/19 03:57 Dose: 250 mls/hr Sodium Chloride (Normal Saline) 25 mls @ 25 mls/hr IV ASDIRECTED [facility] Phenylephrine HCl 1 mg/ Sodium (Chloride) 10.1 mls @ 1 mls/sec IV TITRATE [facility]; Protocol Sodium Chloride (Normal Saline) 1,000 mls @ 25 mls/hr IV ASDIRECTED [facility] Stop: 02/18/19 18:47 Last Admin: 02/14/19 19:49 Dose: 25 mls/hr Metoprolol Tartrate (Lopressor) 5 mg IVPUSH Q4H PRN PRN Reason: Tachycardia Miscellaneous Information (Remove Patch) 0 ea TRDERM ONETIME ONE Stop: 02/17/19 14:31 Multivitamins (Thera) 1 each PO DAILY [facility] Last Admin: 02/15/19 09:00 Dose: 1 each Nystatin (Nystop) 1 gm TOP TID [facility] Last Admin: 02/15/19 09:04 Dose: 1 gm Ondansetron HCl (Zofran) 4 mg IV Q6H PRN PRN Reason: Nausea/Vomiting Last Admin: 02/13/19 20:55 Dose: 4 mg Oxycodone HCl (Oxycodone) 5 mg PO Q4H PRN PRN Reason: Pain (moderate 4-6) Last Admin: 02/13/19 20:29 Dose: 5 mg Pantoprazole Sodium (Protonix) 40 mg PO Q12HR [facility] Last Admin: 02/15/19 09:00 Dose: 40 mg Polyethylene Glycol (Miralax) 17 gm PO DAILY PRN PRN Reason: Constipation Promethazine HCl (Phenergan) 25 mg PO Q8H PRN PRN Reason: Nausea/Vomiting Last Admin: 02/13/19 20:28 Dose: 25 mg Senna/Docusate Sodium (Senna Plus) 1 tab PO BID PRN PRN Reason: Constipation Sodium Chloride (Saline Flush) 10 ml FLUSH ASDIRECTED PRN PRN Reason: Keep Vein Open Last Admin: 02/14/19 13:11 Dose: 10 ml Temazepam (Restoril) 15 mg PO BEDTIME PRN PRN Reason: Sleep Valacyclovir HCl (Valtrex) 1,000 mg PO TID [facility] Last Admin: 02/15/19 09:00 Dose: 1,000 mg Vancomycin HCl (Pharmacy To Dose - Vancomycin) 0 dose .XX ASDIRECTED PRN PRN Reason: RX TO DOSE VANCOMYCIN Zolpidem Tartrate (Ambien) 5 mg PO BEDTIME [facility] Last Admin: 02/14/19 20:34 Dose: 5 mg Discontinued Medications Acetaminophen (Tylenol) 975 mg PO ONETIME ONE Stop: 02/11/19 04:02 Last Admin: 02/11/19 04:51 Dose: 975 mg Albuterol (Proventil Neb Soln) 2.5 mg NEB ONETIME ONE Stop: 02/14/19 15:36 Last Admin: 02/14/19 17:28 Dose: 2.5 mg Dexamethasone (Dexamethasone) Confirm Administered Dose 20 mg .ROUTE .STK-MED ONE Stop: 02/11/19 12:35 Dexamethasone (Dexamethasone) Confirm Administered Dose 20 mg .ROUTE .STK-MED ONE Stop: 02/14/19 14:37 Diphenhydramine HCl (Benadryl) Confirm Administered Dose 50 mg .ROUTE .STK-MED ONE Stop: 02/14/19 14:37 Fentanyl (Sublimaze) Confirm Administered Dose 250 mcg .ROUTE .STK-MED ONE Stop: 02/11/19 12:35 Fentanyl (Sublimaze) Confirm Administered Dose 250 mcg .ROUTE .STK-MED ONE Stop: 02/14/19 14:38 Fentanyl (Sublimaze) 50 mcg IVPUSH Q5M PRN PRN Reason: Pain Glycopyrrolate () Confirm Administered Dose 1 mg .ROUTE .STK-MED ONE Stop: 02/11/19 13:58 Haloperidol Lactate (Haldol) 1 mg IVPUSH ONETIME ONE Stop: 02/14/19 15:36 Last Admin: 02/14/19 18:48 Dose: Not Given Hydromorphone HCl (Dilaudid) 1 mg IVPUSH ONETIME ONE Stop: 02/11/19 03:55 Last Admin: 02/11/19 04:09 Dose: 1 mg Hydromorphone HCl (Dilaudid) 0.5 mg IVPUSH Q15M PRN PRN Reason: Pain (severe 7-10) Hydromorphone HCl (Dilaudid) Confirm Administered Dose 0.5 mg .ROUTE .STK-MED ONE Stop: 02/14/19 16:34 Dextrose/Sodium Chloride (Dextrose 5%-Normal Saline) 1,000 mls @ 125 mls/hr IV ASDIRECTED [facility] Last Admin: 02/11/19 04:09 Dose: 125 mls/hr Linezolid 600 mg/ Premix 300 mls @ 300 mls/hr IV ONETIME ONE Stop: 02/11/19 05:26 Last Admin: 02/11/19 04:51 Dose: 300 mls/hr Vancomycin HCl 2 gm/ Sodium (Chloride) 500 mls @ 250 mls/hr IV ONETIME ONE Stop: 02/11/19 05:20 Last Admin: 02/11/19 06:07 Dose: 250 mls/hr Lactated Ringer's (Ringers, Lactated) 1,000 mls @ 125 mls/hr IV ASDIRECTED [facility] Last Admin: 02/12/19 11:41 Dose: 125 mls/hr Piperacillin Sod/Tazobactam (Sod 4.5 gm/ Sodium Chloride) 100 mls @ 200 mls/hr IV ONETIME ONE Stop: 02/11/19 09:29 Last Admin: 02/11/19 09:50 Dose: 200 mls/hr Vancomycin HCl 500 mg/ Sodium (Chloride) 250 mls @ 166.667 mls/hr IV Q12H [facility] Vancomycin HCl 1 gm/Vancomycin HCl 500 mg/ Sodium Chloride 500 mls @ 250 mls/ hr IV Q12H [facility] Last Admin: 02/12/19 18:09 Dose: Not Given Lactated Ringer's (Ringers, Lactated) Confirm Administered Dose 0 mls @ as directed .ROUTE .STK-MED ONE Stop: 02/11/19 12:35 Lidocaine HCl (Xylocaine-Mpf 1%) Confirm Administered Dose 2 mls @ as directed .ROUTE .STK-MED ONE Stop: 02/11/19 12:38 Magnesium Sulfate 4 gm/ Premix 50 mls @ 12.5 mls/hr IV ONETIME ONE Stop: 02/11/19 23:44 Last Admin: 02/11/19 20:23 Dose: 12.5 mls/hr Levofloxacin/Dextrose 750 mg/ (Premix) 150 mls @ 100 mls/hr IV Q24H [facility] Last Admin: 02/11/19 20:48 Dose: Not Given Sodium Chloride (Normal Saline) 500 mls @ 500 mls/hr IV .BOLUS ONE Stop: 02/12/19 18:56 Last Admin: 02/12/19 18:16 Dose: 500 mls/hr Vancomycin HCl 1 gm/Vancomycin HCl 500 mg/ Sodium Chloride 500 mls @ 250 mls/ hr IV Q12H [facility] Sodium Chloride (Normal Saline) 1,000 mls @ 100 mls/hr IV ASDIRECTED [facility] Last Admin: 02/13/19 14:23 Dose: 100 mls/hr Sodium Chloride (Normal Saline) 100 mls @ 75 mls/hr IV ASDIRECTED [facility] Last Admin: 02/13/19 15:01 Dose: 75 mls/hr Lidocaine HCl (Xylocaine-Mpf 1%) Confirm Administered Dose 6 mls @ as directed .ROUTE .STK-MED ONE Stop: 02/14/19 14:37 Lactated Ringer's (Ringers, Lactated) Confirm Administered Dose 2,000 mls @ as directed .ROUTE .STK-MED ONE Stop: 02/14/19 14:37 Iodine (Iodine 2% Mild Tincture) Confirm Administered Dose 30 ml .ROUTE .STK- MED ONE Stop: 02/14/19 16:22 Last Admin: 02/14/19 16:24 Dose: 18 ml Iopamidol (Isovue-370 (76%)) 100 ml IVPUSH ONETIME ONE Stop: 02/13/19 14:29 Last Admin: 02/13/19 15:00 Dose: 100 ml Iopamidol (Isovue-300 (61%)) 100 ml IVPUSH ONETIME ONE Stop: 02/14/19 12:50 Last Admin: 02/14/19 13:11 Dose: 100 ml Lorazepam (Ativan) 0.5 mg IV Q6H PRN PRN Reason: Anxiety Lorazepam (Ativan) 1 mg PO NOW STA Stop: 02/12/19 10:00 Last Admin: 02/12/19 10:16 Dose: 1 mg Metoclopramide HCl (Reglan) 10 mg IVPUSH ONETIME ONE Stop: 02/11/19 03:55 Last Admin: 02/11/19 04:07 Dose: 10 mg Midazolam HCl (Versed 1 Mg/Ml) Confirm Administered Dose 2 mg .ROUTE .STK-MED ONE Stop: 02/11/19 12:35 Midazolam HCl (Versed 1 Mg/Ml) Confirm Administered Dose 2 mg .ROUTE .STK-MED ONE Stop: 02/14/19 14:38 Miscellaneous Information (Remove Patch) 0 ea TRDERM ONETIME ONE Stop: 02/14/19 13:31 Last Admin: 02/14/19 13:35 Dose: Not Given Neostigmine Methylsulfate (Neostigmine) Confirm Administered Dose 5 mg .ROUTE .STK-MED ONE Stop: 02/11/19 13:58 Ondansetron HCl (Zofran) Confirm Administered Dose 4 mg .ROUTE .STK-MED ONE Stop: 02/11/19 12:35 Ondansetron HCl (Zofran) Confirm Administered Dose 4 mg .ROUTE .STK-MED ONE Stop: 02/14/19 14:37 Ondansetron HCl (Zofran) 4 mg IVPUSH ONETIME PRN PRN Reason: Nausea/Vomiting Phenylephrine HCl (Phenylephrine In Ns 100 Mcg/Ml) Confirm Administered Dose 1 mg .ROUTE .STK-MED ONE Stop: 02/14/19 15:37 Potassium Chloride (Klor-Con M20) 60 meq PO ONETIME ONE Stop: 02/11/19 19:45 Last Admin: 02/11/19 20:21 Dose: 60 meq Propofol (Diprivan 20 Ml) Confirm Administered Dose 200 mg .ROUTE .STK-MED ONE Stop: 02/11/19 12:35 Propofol (Diprivan 20 Ml) Confirm Administered Dose 400 mg .ROUTE .STK-MED ONE Stop: 02/11/19 13:30 Propofol (Diprivan 20 Ml) Confirm Administered Dose 200 mg .ROUTE .STK-MED ONE Stop: 02/14/19 14:37 Rocuronium [place] (Zemuron) Confirm Administered Dose 50 mg .ROUTE .STK-MED ONE Stop: 02/11/19 12:35 Rocuronium [place] (Zemuron) Confirm Administered Dose 50 mg .ROUTE .STK-MED ONE Stop: 02/14/19 14:37 Scopolamine (Transderm-Scop) 1.5 mg TOP ONETIME ONE Stop: 02/11/19 10:20 Last Admin: 02/11/19 10:35 Dose: 1.5 mg Scopolamine (Transderm-Scop) 1.5 mg TRDERM ONETIME [facility] Last Admin: 02/11/19 13:36 Dose: 1.5 mg Scopolamine (Transderm-Scop) 1.5 mg TRDERM ONETIME ONE Stop: 02/14/19 14:31 Last Admin: 02/14/19 14:40 Dose: 1.5 mg Succinylcholine Chloride (Succinylcholine In Ns Pf) Confirm Administered Dose 100 mg .ROUTE .STK-MED ONE Stop: 02/14/19 14:37 Vancomycin HCl (Pharmacy To Dose - Vancomycin) 1 dose .XX ASDIRECTED [facility] Vancomycin HCl (Vancomycin) Confirm Administered Dose 1 gm .ROUTE .STK-MED ONE Stop: 02/14/19 16:00 Last Admin: 02/14/19 16:15 Dose: 1 gm - Exam Quality Assessment: Supplemental Oxygen General: Alert, Oriented HEENT: Pupils Equal, Pupils Reactive, EOMI, Mucous Membr. Moist/[place] Neck: Supple Lungs: Clear to Auscultation, Normal Respiratory Effort Cardiovascular: Regular Rate, Regular Rhythm Skin: Warm, Dry, Intact Psy/Mental Status: Alert, Normal Affect, Normal Mood Consult PN Assessment/Plan POD#: 1 Procedures: Procedures BL SMEAR W/DIFF WBC COUNT (12/31/18) BLOOD TYPING SEROLOGIC ABO (12/31/18) BLOOD TYPING SEROLOGIC RH(D) (12/31/18) CATARACT SURG W/IOL 1 STAGE (03/26/16) COMPLETE CBC AUTOMATED (12/31/18) COMPLETE CBC W/AUTO DIFF WBC (12/31/18) COMPREHEN METABOLIC PANEL (12/31/18) ELECTROCARDIOGRAM TRACING (12/31/18) EMERGENCY DEPT VISIT (12/31/18) GAIT TRAINING THERAPY (12/31/18) MEASURE BLOOD OXYGEN LEVEL (12/31/18) MEASURE BLOOD OXYGEN LEVEL (12/31/18) MR-STAPH DNA AMP PROBE (12/31/18) MRI LUMBAR SPINE W/O DYE (11/23/18) PROTHROMBIN TIME (12/31/18) PT EVAL LOW COMPLEX 20 MIN (12/31/18) RBC ANTIBODY SCREEN (12/31/18) ROUTINE VENIPUNCTURE (12/31/18) THER/PROPH/DIAG INJ IV PUSH (12/31/18) THERAPEUTIC ACTIVITIES (12/31/18) THROMBOPLASTIN TIME PARTIAL (12/31/18) TX/PRO/DX INJ NEW DRUG ADDON (12/31/18) URINALYSIS AUTO W/SCOPE (12/31/18) X-RAY EXAM HIP UNI 1 VIEW (12/31/18) X-RAY EXAM HIP UNI 2-3 VIEWS (12/31/18) X-RAY EXAM OF SKULL (11/23/18) Problem List Initiated/Reviewed/Updated: Yes My Orders Last 24 Hours: My Active Orders 02/15/19 10:49 Chest 1V Frontal [CR] Routine Plan: Acute: Abscess left buttocks - postop day 1 from incision and drainage left buttocks - Culture growing beta Streptococcus group G - on vancomycin and Zosyn awaiting culture and sensitivity - White blood cell count down to 17 and C-reactive protein down to 16.5 SSTI/Left Hip - At the surgical site - Recently had hip surgery - Affected Buttock: red, tender, edematous - No blisters or, scabs noted - Mild erythema: runs down to his anterior thigh all he way up knee - On IV Zosyn and Continue Vancomycin for pharmacy to dose CAP - Productive Clear Cough and SOB - CXR report rad as patchy areas of increased density are noted within the left base - IV antibiotics as above - Sputum Cx - negative - Decongestant/Expectorant, IS as directed and PRN Supplemental O2 as needed - Consider adding Levaquin if no response to treatment - RT to assess and treat Electrolytes Abnormality - resolved - Hypokalemia - resolved - K of 3.9 - 2/2 Inadequate Intake - Replete and monitor - Hypomagnesemia - resolved - Mg of 2.0 - 2/2 Inadequate Intake - Replete and monitor Chronic: Impaired Hearing/Vision, HLD, GERD, Inguinal Hernia, Prostate CA S/p Surgery, Hx/o Back Surgery, 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
--- NOTE | 2019-02-15 12:52 | CR ---
Chest: Portable view of the chest was obtained. Comparison: Prior chest x-ray of 02/11/19. Heart size is within normal limits for portable technique. Slight tortuosity of the thoracic aorta is seen. Lung markings are minimally increased believed to be accentuated from portable technique. No acute parenchymal change is seen. Bony structures are grossly intact. Impression: 1. Nothing acute is suspected on portable chest x-ray. Diagnostic code #2
[2019-02-15] MEDS: Zolpidem 5 MG Tab PO SCH (20:22)
[2019-02-16] MEDS: Piperacillin/Tazobactam 4.5 GM in Sodium Chloride 0.9% 100 ML IV SCH ×3 (00:17→16:42)
[2019-02-16] MEDS: Heparin Sodium 5,000 Units/ML Vial SUBCUT SCH ×3 (04:14→20:32)
[2019-02-16] MEDS: Vancomycin 1 GM, Vancomycin 500 MG in Sodium Chloride 0.9% 500 ML IV SCH (04:20)
[2019-02-16] MEDS: Nystatin Topical Powder 15 GM Bottle TOP SCH ×3 (08:40→20:35)
--- NOTE | 2019-02-16 09:25 | CR ---
Chest: Portable view of the chest was obtained. Comparison: Prior chest x-ray of 02/15/19. Right-sided PICC line is seen. Tip lies within the right atria. Tip should be withdrawn by about 7-8 cm. Lungs are clear with no acute parenchymal change. Heart size is normal. Bony structures are grossly intact. Impression: 1. Right-sided PICC line. Tip lies within the right atria as described above. 2. Nothing acute seen within the chest. Diagnostic code #3
--- NOTE | 2019-02-16 09:25 | CR ---
Chest: Portable supine view of the chest was obtained. Comparison: Prior chest x-ray performed earlier the same day (8:41 AM). Right-sided PICC line is seen. Tip lies near the right atrial and superior vena cava junction. For optimal positioning PICC line should be withdrawn by about 5 cm. Lungs remain clear. Heart size and mediastinum are unremarkable. Bony structures are grossly intact. Impression: 1. Right-sided PICC line with tip lying at the right atrial and superior vena cava junction as noted above. 2. Nothing acute is otherwise seen on frontal chest x-ray. Diagnostic code #3
[2019-02-16] MEDS: Pantoprazole 40 MG Tab.CR PO SCH ×2 (09:53→20:34)
[2019-02-16] MEDS: Gabapentin 300 MG Cap PO SCH (09:53)
[2019-02-16] MEDS: Multivitamins,Therapeutic Tab PO SCH (09:53)
[2019-02-16] MEDS: valACYclovir 1,000 MG Tab PO SCH ×3 (09:53→20:34)
--- NOTE | 2019-02-16 10:08 | PCM.SN ---
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 Anesthesia requested for PICC line placement. Patient educated on risk/benefits , allergies reviewed, medication list reviewed, patient agrees to proceed, consent obtained. New Sterile drape placed, along with sterile gloves, sterile gown, and masks noted. Right arm prepped by 3 chloropreps and the right basilic vein was accessed by a 20 gauge angio catheter. Guide wire passed with ease and microintroducer kit used and 4 georgian single lumen PICC advanced and secured at 55 cm at the skin. Good blood return, and site flushed with 30 mls of normal saline with ease. PICC line placement verified with portably chest xray. MicroIntroducer kit used: Groshong NXT PICC 4 georgian catheter single lumen advanced without difficulties noted. REF: [id number] LOT: [id number] EXP: Tegaderm with chlorahexidine gel square applied, with stat-lock securing PICC line. Thank you, Hoang Thompson MANAGER REIMBURSEMENT
--- NOTE | 2019-02-16 11:00 | PCM.SN ---
- Free Text/Narrative Note: 1035 in room. PICC line pulled back to 50cm at skin. Secured with steri strips. Sterile dressing allied and dated. All done under sterile sterile technique. out of room at 1050
[2019-02-16] MEDS ORDERED: Magnesium Sulfate/Water 2 GM in Premix Bag 1 BAG IV ONE (11:33)
[2019-02-16] MEDS ORDERED: Potassium Chloride 20 MEQ Tab.ER PO ONE (11:33)
--- NOTE | 2019-02-16 13:39 | PCM.CONSN ---
- General Info Date of Service: 02/16/19 Admission Dx/Problem (Free Text): Admission Diagnosis/Problem Admission Diagnosis/Problem Acute febrile illness fever confusion. left lateral thigh cellulitis. l orif nausea/hicccups tachicardia Subjective Update: patient states he is doing much better. Has more energy and appetite has improved. He had some mild nausea this morning but nothing significant. - Review of Systems General: Reports: No Symptoms HEENT: Reports: No Symptoms Pulmonary: Reports: No Symptoms Gastrointestinal: Reports: Nausea - Patient Data Vitals - Most Recent: Last Vital Signs Temp 97.7 F 02/16/19 12:00 Pulse 74 02/16/19 12:00 Resp 18 02/16/19 12:00 BP 135/75 02/16/19 12:00 Pulse Ox 95 02/16/19 12:00 Weight - Most Recent: 201 lb 3.2 oz I&O - Last 24 Hours: Intake & Output 02/15/19 02/16/19 02/16/19 22:59 06:59 14:59 Intake Total 2246 1245 0 Output Total 400 2000 Balance 1846 -755 0 Lab Results Last 24 Hours: Laboratory Results - last 24 hr 02/16/19 02/16/19 Range/Units 04:32 04:32 WBC 11.94 H (4.23-9.07) K/mm3 RBC 3.49 L (4.63-6.08) M/mm3 Hgb 10.1 L (13.7-17.5) gm/L Hct 30.7 L (40.1-51.0) % MCV 88.0 (79.0-92.2) fl MCH 28.9 (25.7-32.2) pg MCHC 32.9 (32.2-35.5) g/dl RDW Std Deviation 48.3 H (35.1-43.9) fL Plt Count 334 (163-337) K/mm3 MPV 9.9 (9.4-12.3) fl Neut % (Auto) 62.4 (34.0-67.9) % Lymph % (Auto) 17.3 L (21.8-53.1) % [place] % (Auto) 11.1 (5.3-12.2) % Eos % (Auto) 2.4 (0.8-7.0) Baso % (Auto) 0.3 (0.1-1.2) % Neut # (Auto) 7.45 H (1.78-5.38) K/mm3 Lymph # (Auto) 2.06 (1.32-3.57) K/mm3 [place] # (Auto) 1.32 H (0.30-0.82) K/mm3 Eos # (Auto) 0.29 (0.04-0.54) K/mm3 Baso # (Auto) 0.04 (0.01-0.08) K/mm3 Manual Slide Review Abnormal smear Sodium 143 (136-145) mEq/L Potassium 3.3 L (3.5-5.1) mEq/L Chloride 105 (98-107) mEq/L Carbon Dioxide 26 (21-32) mEq/L Anion Gap 15.3 H (5-15) BUN 10 (7-18) mg/dL Creatinine 0.8 (0.7-1.3) mg/dL Est Cr Clr Drug Dosing 95.43 mL/min Estimated GFR (MDRD) > 60 (>60) mL/min BUN/Creatinine Ratio 12.5 L (14-18) Glucose 107 (80-115) mg/dL Calcium 8.4 L (8.5-10.1) mg/dL Magnesium 1.6 L (1.8-2.4) mg/dl C-Reactive Protein 9.0 H* (<1.0) mg/dL Jorge A Results Last 24 Hours: Microbiology 02/14/19 15:52 Gram Stain - Final Hip, Left Anaerobic Culture - Preliminary Beta Streptococcus Group G 02/14/19 15:51 Gram Stain - Final Hip, Left Anaerobic Culture - Preliminary Beta Streptococcus Group G 02/14/19 15:50 Gram Stain - Final Hip, Left Anaerobic Culture - Preliminary Beta Streptococcus Group G 02/11/19 04:18 Aerobic Blood Culture - Preliminary Blood - Venous NO GROWTH AFTER 5 DAYS Anaerobic Blood Culture - Preliminary NO GROWTH AFTER 5 DAYS 02/11/19 04:05 Aerobic Blood Culture - Preliminary Blood - Venous - Lab Draw NO GROWTH AFTER 5 DAYS Anaerobic Blood Culture - Preliminary NO GROWTH AFTER 5 DAYS Med Orders - Current: Current Medications Acetaminophen (Tylenol) 650 mg PO Q4H PRN PRN Reason: Pain (Mild 1-3)/fever Last Admin: 02/12/19 17:17 Dose: 650 mg Albuterol/Ipratropium (Duoneb 3.0-0.5 Mg/3 Ml) 3 ml NEB Q4H PRN PRN Reason: Shortness Of Breath/wheezing Bisacodyl (Dulcolax) 5 mg PO DAILY PRN PRN Reason: Constipation Docusate Sodium (Colace) 100 mg PO BID PRN PRN Reason: Constipation Last Admin: 02/14/19 20:51 Dose: 100 mg Gabapentin (Neurontin) 300 mg PO DAILY [facility] Last Admin: 02/16/19 09:53 Dose: 300 mg Guaifenesin/Phenylephrine HCl (Robitussin Dm) 10 ml PO Q4H PRN PRN Reason: Cough Last Admin: 02/12/19 17:18 Dose: 10 ml Heparin Sodium (Porcine) (Heparin Sodium) 5,000 units SUBCUT Q8H [facility] Last Admin: 02/16/19 12:05 Dose: 5,000 units Hydralazine HCl (Apresoline) 20 mg IVPUSH Q4H PRN PRN Reason: Hypertension Hydromorphone HCl (Dilaudid) 0.5 mg IVPUSH Q2H PRN PRN Reason: Pain (severe 7-10) Last Admin: 02/14/19 13:33 Dose: 0.5 mg Promethazine HCl 6.25 mg/ (Sodium Chloride) 50.25 mls @ 100 mls/hr IV Q6H PRN PRN Reason: Nausea/Vomiting Piperacillin Sod/Tazobactam (Sod 4.5 gm/ Sodium Chloride) 100 mls @ 25 mls/hr IV Q8H [facility] Last Admin: 02/16/19 09:53 Dose: 25 mls/hr Sodium Chloride (Normal Saline) 25 mls @ 25 mls/hr IV ASDIRECTED [facility] Sodium Chloride (Normal Saline) 1,000 mls @ 25 mls/hr IV ASDIRECTED [facility] Stop: 02/18/19 18:47 Last Admin: 02/14/19 19:49 Dose: 25 mls/hr Metoprolol Tartrate (Lopressor) 5 mg IVPUSH Q4H PRN PRN Reason: Tachycardia Miscellaneous Information (Remove Patch) 0 ea TRDERM ONETIME ONE Stop: 02/17/19 14:31 Multivitamins (Thera) 1 each PO DAILY [facility] Last Admin: 02/16/19 09:53 Dose: 1 each Nystatin (Nystop) 1 gm TOP TID [facility] Last Admin: 02/16/19 08:40 Dose: 1 gm Ondansetron HCl (Zofran) 4 mg IV Q6H PRN PRN Reason: Nausea/Vomiting Last Admin: 02/13/19 20:55 Dose: 4 mg Oxycodone HCl (Oxycodone) 5 mg PO Q4H PRN PRN Reason: Pain (moderate 4-6) Last Admin: 02/13/19 20:29 Dose: 5 mg Pantoprazole Sodium (Protonix) 40 mg PO Q12HR [facility] Last Admin: 02/16/19 09:53 Dose: 40 mg Polyethylene Glycol (Miralax) 17 gm PO DAILY PRN PRN Reason: Constipation Promethazine HCl (Phenergan) 25 mg PO Q8H PRN PRN Reason: Nausea/Vomiting Last Admin: 02/13/19 20:28 Dose: 25 mg Senna/Docusate Sodium (Senna Plus) 1 tab PO BID PRN PRN Reason: Constipation Sodium Chloride (Saline Flush) 10 ml FLUSH ASDIRECTED PRN PRN Reason: Keep Vein Open Last Admin: 02/14/19 13:11 Dose: 10 ml Valacyclovir HCl (Valtrex) 1,000 mg PO TID [facility] Last Admin: 02/16/19 09:53 Dose: 1,000 mg Zolpidem Tartrate (Ambien) 5 mg PO BEDTIME [facility] Last Admin: 02/15/19 20:22 Dose: 5 mg Discontinued Medications Acetaminophen (Tylenol) 975 mg PO ONETIME ONE Stop: 02/11/19 04:02 Last Admin: 02/11/19 04:51 Dose: 975 mg Albuterol (Proventil Neb Soln) 2.5 mg NEB ONETIME ONE Stop: 02/14/19 15:36 Last Admin: 02/14/19 17:28 Dose: 2.5 mg Dexamethasone (Dexamethasone) Confirm Administered Dose 20 mg .ROUTE .STK-MED ONE Stop: 02/11/19 12:35 Dexamethasone (Dexamethasone) Confirm Administered Dose 20 mg .ROUTE .STK-MED ONE Stop: 02/14/19 14:37 Diphenhydramine HCl (Benadryl) Confirm Administered Dose 50 mg .ROUTE .STK-MED ONE Stop: 02/14/19 14:37 Ephedrine Sulfate (Ephedrine Sulfate) 5 mg IVPUSH ASDIRECTED PRN PRN Reason: Hypotension Fentanyl (Sublimaze) Confirm Administered Dose 250 mcg .ROUTE .STK-MED ONE Stop: 02/11/19 12:35 Fentanyl (Sublimaze) Confirm Administered Dose 250 mcg .ROUTE .STK-MED ONE Stop: 02/14/19 14:38 Fentanyl (Sublimaze) 50 mcg IVPUSH Q5M PRN PRN Reason: Pain Glycopyrrolate () Confirm Administered Dose 1 mg .ROUTE .STK-MED ONE Stop: 02/11/19 13:58 Haloperidol Lactate (Haldol) 1 mg IVPUSH ONETIME ONE Stop: 02/14/19 15:36 Last Admin: 02/14/19 18:48 Dose: Not Given Hydromorphone HCl (Dilaudid) 1 mg IVPUSH ONETIME ONE Stop: 02/11/19 03:55 Last Admin: 02/11/19 04:09 Dose: 1 mg Hydromorphone HCl (Dilaudid) 0.5 mg IVPUSH Q15M PRN PRN Reason: Pain (severe 7-10) Hydromorphone HCl (Dilaudid) Confirm Administered Dose 0.5 mg .ROUTE .ST-MED ONE Stop: 02/14/19 16:34 Dextrose/Sodium Chloride (Dextrose 5%-Normal Saline) 1,000 mls @ 125 mls/hr IV ASDIRECTED [facility] Last Admin: 02/11/19 04:09 Dose: 125 mls/hr Linezolid 600 mg/ Premix 300 mls @ 300 mls/hr IV ONETIME ONE Stop: 02/11/19 05:26 Last Admin: 02/11/19 04:51 Dose: 300 mls/hr Vancomycin HCl 2 gm/ Sodium (Chloride) 500 mls @ 250 mls/hr IV ONETIME ONE Stop: 02/11/19 05:20 Last Admin: 02/11/19 06:07 Dose: 250 mls/hr Lactated Ringer's (Ringers, Lactated) 1,000 mls @ 125 mls/hr IV ASDIRECTED [facility] Last Admin: 02/12/19 11:41 Dose: 125 mls/hr Piperacillin Sod/Tazobactam (Sod 4.5 gm/ Sodium Chloride) 100 mls @ 200 mls/hr IV ONETIME ONE Stop: 02/11/19 09:29 Last Admin: 02/11/19 09:50 Dose: 200 mls/hr Vancomycin HCl 500 mg/ Sodium (Chloride) 250 mls @ 166.667 mls/hr IV Q12H [facility] Vancomycin HCl 1 gm/Vancomycin HCl 500 mg/ Sodium Chloride 500 mls @ 250 mls/ hr IV Q12H [facility] Last Admin: 02/12/19 18:09 Dose: Not Given Lactated Ringer's (Ringers, Lactated) Confirm Administered Dose 0 mls @ as directed .ROUTE .STK-MED ONE Stop: 02/11/19 12:35 Lidocaine HCl (Xylocaine-Mpf 1%) Confirm Administered Dose 2 mls @ as directed .ROUTE .STK-MED ONE Stop: 02/11/19 12:38 Magnesium Sulfate 4 gm/ Premix 50 mls @ 12.5 mls/hr IV ONETIME ONE Stop: 02/11/19 23:44 Last Admin: 02/11/19 20:23 Dose: 12.5 mls/hr Levofloxacin/Dextrose 750 mg/ (Premix) 150 mls @ 100 mls/hr IV Q24H [facility] Last Admin: 02/11/19 20:48 Dose: Not Given Sodium Chloride (Normal Saline) 500 mls @ 500 mls/hr IV .BOLUS ONE Stop: 02/12/19 18:56 Last Admin: 02/12/19 18:16 Dose: 500 mls/hr Vancomycin HCl 1 gm/Vancomycin HCl 500 mg/ Sodium Chloride 500 mls @ 250 mls/ hr IV Q12H [facility] Vancomycin HCl 1 gm/Vancomycin HCl 500 mg/ Sodium Chloride 500 mls @ 250 mls/ hr IV Q8H [facility] Last Admin: 02/16/19 04:20 Dose: 250 mls/hr Sodium Chloride (Normal Saline) 1,000 mls @ 100 mls/hr IV ASDIRECTED [facility] Last Admin: 02/13/19 14:23 Dose: 100 mls/hr Sodium Chloride (Normal Saline) 100 mls @ 75 mls/hr IV ASDIRECTED [facility] Last Admin: 02/13/19 15:01 Dose: 75 mls/hr Lidocaine HCl (Xylocaine-Mpf 1%) Confirm Administered Dose 6 mls @ as directed .ROUTE .STK-MED ONE Stop: 02/14/19 14:37 Lactated Ringer's (Ringers, Lactated) Confirm Administered Dose 2,000 mls @ as directed .ROUTE .STK-MED ONE Stop: 02/14/19 14:37 Phenylephrine HCl 1 mg/ Sodium (Chloride) 10.1 mls @ 1 mls/sec IV TITRATE AUGIE; Protocol Magnesium Sulfate 2 gm/ Premix 50 mls @ 25 mls/hr IV ONETIME ONE Stop: 02/16/19 13:32 Last Admin: 02/16/19 11:59 Dose: 25 mls/hr Iodine (Iodine 2% Mild Tincture) Confirm Administered Dose 30 ml .ROUTE .STK- MED ONE Stop: 02/14/19 16:22 Last Admin: 02/14/19 16:24 Dose: 18 ml Iopamidol (Isovue-370 (76%)) 100 ml IVPUSH ONETIME ONE Stop: 02/13/19 14:29 Last Admin: 02/13/19 15:00 Dose: 100 ml Iopamidol (Isovue-300 (61%)) 100 ml IVPUSH ONETIME ONE Stop: 02/14/19 12:50 Last Admin: 02/14/19 13:11 Dose: 100 ml Lorazepam (Ativan) 0.5 mg IV Q6H PRN PRN Reason: Anxiety Lorazepam (Ativan) 1 mg PO NOW STA Stop: 02/12/19 10:00 Last Admin: 02/12/19 10:16 Dose: 1 mg Metoclopramide HCl (Reglan) 10 mg IVPUSH ONETIME ONE Stop: 02/11/19 03:55 Last Admin: 02/11/19 04:07 Dose: 10 mg Midazolam HCl (Versed 1 Mg/Ml) Confirm Administered Dose 2 mg .ROUTE .STK-MED ONE Stop: 02/11/19 12:35 Midazolam HCl (Versed 1 Mg/Ml) Confirm Administered Dose 2 mg .ROUTE .STK-MED ONE Stop: 02/14/19 14:38 Miscellaneous Information (Remove Patch) 0 ea TRDERM ONETIME ONE Stop: 02/14/19 13:31 Last Admin: 02/14/19 13:35 Dose: Not Given Neostigmine Methylsulfate (Neostigmine) Confirm Administered Dose 5 mg .ROUTE .STK-MED ONE Stop: 02/11/19 13:58 Ondansetron HCl (Zofran) Confirm Administered Dose 4 mg .ROUTE .STK-MED ONE Stop: 02/11/19 12:35 Ondansetron HCl (Zofran) Confirm Administered Dose 4 mg .ROUTE .STK-MED ONE Stop: 02/14/19 14:37 Ondansetron HCl (Zofran) 4 mg IVPUSH ONETIME PRN PRN Reason: Nausea/Vomiting Phenylephrine HCl (Phenylephrine In Ns 100 Mcg/Ml) Confirm Administered Dose 1 mg .ROUTE .STK-MED ONE Stop: 02/14/19 15:37 Potassium Chloride (Klor-Con M20) 60 meq PO ONETIME ONE Stop: 02/11/19 19:45 Last Admin: 02/11/19 20:21 Dose: 60 meq Potassium Chloride (Klor-Con M20) 40 meq PO ONETIME ONE Stop: 02/16/19 11:34 Last Admin: 02/16/19 12:03 Dose: 40 meq Propofol (Diprivan 20 Ml) Confirm Administered Dose 200 mg .ROUTE .STK-MED ONE Stop: 02/11/19 12:35 Propofol (Diprivan 20 Ml) Confirm Administered Dose 400 mg .ROUTE .STK-MED ONE Stop: 02/11/19 13:30 Propofol (Diprivan 20 Ml) Confirm Administered Dose 200 mg .ROUTE .STK-MED ONE Stop: 02/14/19 14:37 Rocuronium [place] (Zemuron) Confirm Administered Dose 50 mg .ROUTE .STK-MED ONE Stop: 02/11/19 12:35 Rocuronium [place] (Zemuron) Confirm Administered Dose 50 mg .ROUTE .STK-MED ONE Stop: 02/14/19 14:37 Scopolamine (Transderm-Scop) 1.5 mg TOP ONETIME ONE Stop: 02/11/19 10:20 Last Admin: 02/11/19 10:35 Dose: 1.5 mg Scopolamine (Transderm-Scop) 1.5 mg TRDERM ONETIME AUG[facility] Last Admin: 02/11/19 13:36 Dose: 1.5 mg Scopolamine (Transderm-Scop) 1.5 mg TRDERM ONETIME ONE Stop: 02/14/19 14:31 Last Admin: 02/14/19 14:40 Dose: 1.5 mg Succinylcholine Chloride (Succinylcholine In Ns Pf) Confirm Administered Dose 100 mg .ROUTE .STK-MED ONE Stop: 02/14/19 14:37 Temazepam (Restoril) 15 mg PO BEDTIME PRN PRN Reason: Sleep Vancomycin HCl (Pharmacy To Dose - Vancomycin) 1 dose .XX ASDIRECTED AUGIE Vancomycin HCl (Pharmacy To Dose - Vancomycin) 0 dose .XX ASDIRECTED PRN PRN Reason: RX TO DOSE VANCOMYCIN Vancomycin HCl (Vancomycin) Confirm Administered Dose 1 gm .ROUTE .STK-MED ONE Stop: 02/14/19 16:00 Last Admin: 02/14/19 16:15 Dose: 1 gm - Exam General: Alert, Oriented Neck: Supple Lungs: Clear to Auscultation, Normal Respiratory Effort Cardiovascular: Regular Rate, Regular Rhythm GI/Abdominal Exam: Normal Bowel Sounds, Soft, Non-Tender, No Organomegaly, No Distention, No Abnormal Bruit, No Mass Extremities: Normal Inspection, Non-Tender Skin: Warm, Dry, Intact Psy/Mental Status: Alert, Normal Affect, Normal Mood Consult PN Assessment/Plan Procedures: Procedures BL SMEAR W/DIFF WBC COUNT (12/31/18) BLOOD TYPING SEROLOGIC ABO (12/31/18) BLOOD TYPING SEROLOGIC RH(D) (12/31/18) CATARACT SURG W/IOL 1 STAGE (03/26/16) COMPLETE CBC AUTOMATED (12/31/18) COMPLETE CBC W/AUTO DIFF WBC (12/31/18) COMPREHEN METABOLIC PANEL (12/31/18) ELECTROCARDIOGRAM TRACING (12/31/18) EMERGENCY DEPT VISIT (12/31/18) GAIT TRAINING THERAPY (12/31/18) MEASURE BLOOD OXYGEN LEVEL (12/31/18) MEASURE BLOOD OXYGEN LEVEL (12/31/18) MR-STAPH DNA AMP PROBE (12/31/18) MRI LUMBAR SPINE W/O DYE (11/23/18) PROTHROMBIN TIME (12/31/18) PT EVAL LOW COMPLEX 20 MIN (12/31/18) RBC ANTIBODY SCREEN (12/31/18) ROUTINE VENIPUNCTURE (12/31/18) THER/PROPH/DIAG INJ IV PUSH (12/31/18) THERAPEUTIC ACTIVITIES (12/31/18) THROMBOPLASTIN TIME PARTIAL (12/31/18) TX/PRO/DX INJ NEW DRUG ADDON (12/31/18) URINALYSIS AUTO W/SCOPE (12/31/18) X-RAY EXAM HIP UNI 1 VIEW (12/31/18) X-RAY EXAM HIP UNI 2-3 VIEWS (12/31/18) X-RAY EXAM OF SKULL (11/23/18) Problem List Initiated/Reviewed/Updated: Yes Plan: Acute: Abscess left buttocks - postop day 1 from incision and drainage left buttocks - Culture growing beta Streptococcus group G - awaiting sensitivities. - D/C vancomycin and continue Zosyn awaiting culture and sensitivity - White blood cell count down to 11.9 and C-reactive protein down to 9.0 CAP - Productive Clear Cough and SOB - CXR report rad as patchy areas of increased density are noted within the left base - IV antibiotics as above - Sputum Cx - negative - Decongestant/Expectorant, IS as directed and PRN Supplemental O2 as needed - Consider adding Levaquin if no response to treatment - RT to assess and treat Electrolytes Abnormality - resolved - Hypokalemia - K of 3.3 - 2/2 Inadequate Intake - Replete and monitor - Hypomagnesemia - Mg of 1.6 - 2/2 Inadequate Intake - Replete and monitor Chronic: Impaired Hearing/Vision, HLD, GERD, Inguinal Hernia, Prostate CA S/p Surgery, Hx/o Back Surgery, 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
--- NOTE | 2019-02-16 17:01 | PCM.SURGPN ---
- General Info Date of Service: 02/16/19 POD#: 2 Functional Status: Reports: Pain Controlled, Tolerating Diet, Ambulating, Urinating, Incentive Spirometry (The pt reports min pain. He states he has been active walking. He is able to lift leg without complaint today.) - Patient Data Vitals - Most Recent: Last Vital Signs Temp 97.7 F 02/16/19 12:00 Pulse 74 02/16/19 12:00 Resp 18 02/16/19 12:00 BP 135/75 02/16/19 12:00 Pulse Ox 95 02/16/19 12:00 Weight - Most Recent: 201 lb 3.2 oz I&O - Last 24 Hours: Intake & Output 02/16/19 02/16/19 02/16/19 06:59 14:59 22:59 Intake Total 1245 0 668 Output Total 2000 650 Balance -755 0 18 Lab Results Last 24 Hrs: Laboratory Results - last 24 hr 02/16/19 02/16/19 Range/Units 04:32 04:32 WBC 11.94 H (4.23-9.07) K/mm3 RBC 3.49 L (4.63-6.08) M/mm3 Hgb 10.1 L (13.7-17.5) gm/L Hct 30.7 L (40.1-51.0) % MCV 88.0 (79.0-92.2) fl MCH 28.9 (25.7-32.2) pg MCHC 32.9 (32.2-35.5) g/dl RDW Std Deviation 48.3 H (35.1-43.9) fL Plt Count 334 (163-337) K/mm3 MPV 9.9 (9.4-12.3) fl Neut % (Auto) 62.4 (34.0-67.9) % Lymph % (Auto) 17.3 L (21.8-53.1) % Barren % (Auto) 11.1 (5.3-12.2) % Eos % (Auto) 2.4 (0.8-7.0) Baso % (Auto) 0.3 (0.1-1.2) % Neut # (Auto) 7.45 H (1.78-5.38) K/mm3 Lymph # (Auto) 2.06 (1.32-3.57) K/mm3 Barren # (Auto) 1.32 H (0.30-0.82) K/mm3 Eos # (Auto) 0.29 (0.04-0.54) K/mm3 Baso # (Auto) 0.04 (0.01-0.08) K/mm3 Manual Slide Review Abnormal smear Sodium 143 (136-145) mEq/L Potassium 3.3 L (3.5-5.1) mEq/L Chloride 105 (98-107) mEq/L Carbon Dioxide 26 (21-32) mEq/L Anion Gap 15.3 H (5-15) BUN 10 (7-18) mg/dL Creatinine 0.8 (0.7-1.3) mg/dL Est Cr Clr Drug Dosing 95.43 mL/min Estimated GFR (MDRD) > 60 (>60) mL/min BUN/Creatinine Ratio 12.5 L (14-18) Glucose 107 (80-115) mg/dL Calcium 8.4 L (8.5-10.1) mg/dL Magnesium 1.6 L (1.8-2.4) mg/dl C-Reactive Protein 9.0 H* (<1.0) mg/dL Jorge A Results Last 24 Hrs: Microbiology 02/14/19 15:52 Gram Stain - Final Hip, Left Anaerobic Culture - Preliminary Beta Streptococcus Group G 02/14/19 15:51 Gram Stain - Final Hip, Left Anaerobic Culture - Preliminary Beta Streptococcus Group G 02/14/19 15:50 Gram Stain - Final Hip, Left Anaerobic Culture - Preliminary Beta Streptococcus Group G 02/11/19 04:18 Aerobic Blood Culture - Preliminary Blood - Venous NO GROWTH AFTER 5 DAYS Anaerobic Blood Culture - Preliminary NO GROWTH AFTER 5 DAYS 02/11/19 04:05 Aerobic Blood Culture - Preliminary Blood - Venous - Lab Draw NO GROWTH AFTER 5 DAYS Anaerobic Blood Culture - Preliminary NO GROWTH AFTER 5 DAYS Med Orders - Current: Current Medications Acetaminophen (Tylenol) 650 mg PO Q4H PRN PRN Reason: Pain (Mild 1-3)/fever Last Admin: 02/12/19 17:17 Dose: 650 mg Albuterol/Ipratropium (Duoneb 3.0-0.5 Mg/3 Ml) 3 ml NEB Q4H PRN PRN Reason: Shortness Of Breath/wheezing Bisacodyl (Dulcolax) 5 mg PO DAILY PRN PRN Reason: Constipation Docusate Sodium (Colace) 100 mg PO BID PRN PRN Reason: Constipation Last Admin: 02/14/19 20:51 Dose: 100 mg Gabapentin (Neurontin) 300 mg PO DAILY [facility] Last Admin: 02/16/19 09:53 Dose: 300 mg Guaifenesin/Phenylephrine HCl (Robitussin Dm) 10 ml PO Q4H PRN PRN Reason: Cough Last Admin: 02/12/19 17:18 Dose: 10 ml Heparin Sodium (Porcine) (Heparin Sodium) 5,000 units SUBCUT Q8H [facility] Last Admin: 02/16/19 12:05 Dose: 5,000 units Hydralazine HCl (Apresoline) 20 mg IVPUSH Q4H PRN PRN Reason: Hypertension Hydromorphone HCl (Dilaudid) 0.5 mg IVPUSH Q2H PRN PRN Reason: Pain (severe 7-10) Last Admin: 02/14/19 13:33 Dose: 0.5 mg Promethazine HCl 6.25 mg/ (Sodium Chloride) 50.25 mls @ 100 mls/hr IV Q6H PRN PRN Reason: Nausea/Vomiting Piperacillin Sod/Tazobactam (Sod 4.5 gm/ Sodium Chloride) 100 mls @ 25 mls/hr IV Q8H [facility] Last Admin: 02/16/19 16:42 Dose: 25 mls/hr Sodium Chloride (Normal Saline) 25 mls @ 25 mls/hr IV ASDIRECTED [facility] Sodium Chloride (Normal Saline) 1,000 mls @ 25 mls/hr IV ASDIRECTED [facility] Stop: 02/18/19 18:47 Last Admin: 02/14/19 19:49 Dose: 25 mls/hr Metoprolol Tartrate (Lopressor) 5 mg IVPUSH Q4H PRN PRN Reason: Tachycardia Miscellaneous Information (Remove Patch) 0 ea TRDERM ONETIME ONE Stop: 02/17/19 14:31 Multivitamins (Thera) 1 each PO DAILY [facility] Last Admin: 02/16/19 09:53 Dose: 1 each Nystatin (Nystop) 1 gm TOP TID [facility] Last Admin: 02/16/19 14:35 Dose: 1 gm Ondansetron HCl (Zofran) 4 mg IV Q6H PRN PRN Reason: Nausea/Vomiting Last Admin: 02/13/19 20:55 Dose: 4 mg Oxycodone HCl (Oxycodone) 5 mg PO Q4H PRN PRN Reason: Pain (moderate 4-6) Last Admin: 02/13/19 20:29 Dose: 5 mg Pantoprazole Sodium (Protonix) 40 mg PO Q12HR [facility] Last Admin: 02/16/19 09:53 Dose: 40 mg Polyethylene Glycol (Miralax) 17 gm PO DAILY PRN PRN Reason: Constipation Promethazine HCl (Phenergan) 25 mg PO Q8H PRN PRN Reason: Nausea/Vomiting Last Admin: 02/13/19 20:28 Dose: 25 mg Senna/Docusate Sodium (Senna Plus) 1 tab PO BID PRN PRN Reason: Constipation Sodium Chloride (Saline Flush) 10 ml FLUSH ASDIRECTED PRN PRN Reason: Keep Vein Open Last Admin: 02/14/19 13:11 Dose: 10 ml Valacyclovir HCl (Valtrex) 1,000 mg PO TID [facility] Last Admin: 02/16/19 14:34 Dose: 1,000 mg Zolpidem Tartrate (Ambien) 5 mg PO BEDTIME [facility] Last Admin: 02/15/19 20:22 Dose: 5 mg Discontinued Medications Acetaminophen (Tylenol) 975 mg PO ONETIME ONE Stop: 02/11/19 04:02 Last Admin: 02/11/19 04:51 Dose: 975 mg Albuterol (Proventil Neb Soln) 2.5 mg NEB ONETIME ONE Stop: 02/14/19 15:36 Last Admin: 02/14/19 17:28 Dose: 2.5 mg Dexamethasone (Dexamethasone) Confirm Administered Dose 20 mg .ROUTE .STK-MED ONE Stop: 02/11/19 12:35 Dexamethasone (Dexamethasone) Confirm Administered Dose 20 mg .ROUTE .STK-MED ONE Stop: 02/14/19 14:37 Diphenhydramine HCl (Benadryl) Confirm Administered Dose 50 mg .ROUTE .STK-MED ONE Stop: 02/14/19 14:37 Ephedrine Sulfate (Ephedrine Sulfate) 5 mg IVPUSH ASDIRECTED PRN PRN Reason: Hypotension Fentanyl (Sublimaze) Confirm Administered Dose 250 mcg .ROUTE .STK-MED ONE Stop: 02/11/19 12:35 Fentanyl (Sublimaze) Confirm Administered Dose 250 mcg .ROUTE .STK-MED ONE Stop: 02/14/19 14:38 Fentanyl (Sublimaze) 50 mcg IVPUSH Q5M PRN PRN Reason: Pain Glycopyrrolate () Confirm Administered Dose 1 mg .ROUTE .STK-MED ONE Stop: 02/11/19 13:58 Haloperidol Lactate (Haldol) 1 mg IVPUSH ONETIME ONE Stop: 02/14/19 15:36 Last Admin: 02/14/19 18:48 Dose: Not Given Hydromorphone HCl (Dilaudid) 1 mg IVPUSH ONETIME ONE Stop: 02/11/19 03:55 Last Admin: 02/11/19 04:09 Dose: 1 mg Hydromorphone HCl (Dilaudid) 0.5 mg IVPUSH Q15M PRN PRN Reason: Pain (severe 7-10) Hydromorphone HCl (Dilaudid) Confirm Administered Dose 0.5 mg .ROUTE .STK-MED ONE Stop: 02/14/19 16:34 Dextrose/Sodium Chloride (Dextrose 5%-Normal Saline) 1,000 mls @ 125 [facility] Admin: 02/11/19 04:09 Dose: 125 mls/hr Linezolid 600 mg/ Premix 300 mls @ 300 mls/hr IV ONETIME ONE Stop: 02/11/19 05:26 Last Admin: 02/11/19 04:51 Dose: 300 mls/hr Vancomycin HCl 2 gm/ Sodium (Chloride) 500 mls @ 250 mls/hr IV ONETIME ONE Stop: 02/11/19 05:20 Last Admin: 02/11/19 06:07 Dose: 250 mls/hr Lactated Ringer's (Ringers, Lactated) 1,000 mls @ 125 [facility]ls[facility] Last Admin: 02/12/19 11:41 Dose: 125 mls/hr Piperacillin Sod/Tazobactam (Sod 4.5 gm/ Sodium Chloride) 100 mls @ 200 mls/hr IV ONETIME ONE Stop: 02/11/19 09:29 Last Admin: 02/11/19 09:50 Dose: 200 mls/hr Vancomycin HCl 500 mg/ Sodium (Chloride) 250 mls @ 166.667 mls/hr IV Q12H [facility] Vancomycin HCl 1 gm/Vancomycin HCl 500 mg/ Sodium Chloride 500 mls @ 250 mls/ hr IV Q12H [facility] Last Admin: 02/12/19 18:09 Dose: Not Given Lactated Ringer's (Ringers, Lactated) Confirm Administered Dose 0 mls @ as directed .ROUTE .STK-MED ONE Stop: 02/11/19 12:35 Lidocaine HCl (Xylocaine-Mpf 1%) Confirm Administered Dose 2 mls @ as directed .ROUTE .STK-MED ONE Stop: 02/11/19 12:38 Magnesium Sulfate 4 gm/ Premix 50 mls @ 12.5 mls/hr IV ONETIME ONE Stop: 02/11/19 23:44 Last Admin: 02/11/19 20:23 Dose: 12.5 mls/hr Levofloxacin/Dextrose 750 mg/ (Premix) 150 mls @ 100 mls/hr IV Q24H [facility] Last Admin: 02/11/19 20:48 Dose: Not Given Sodium Chloride (Normal Saline) 500 mls @ 500 mls/hr IV .BOLUS ONE Stop: 02/12/19 18:56 Last Admin: 02/12/19 18:16 Dose: 500 mls/hr Vancomycin HCl 1 gm/Vancomycin HCl 500 mg/ Sodium Chloride 500 mls @ 250 mls/ hr IV Q12H [facility] Vancomycin HCl 1 gm/Vancomycin HCl 500 mg/ Sodium Chloride 500 mls @ 250 mls/ hr IV Q8H [facility] Last Admin: 02/16/19 04:20 Dose: 250 mls/hr Sodium Chloride (Normal Saline) 1,000 mls @ 100 mls/hr IV ASDIRECTED [facility] Last Admin: 02/13/19 14:23 Dose: 100 mls/hr Sodium Chloride (Normal Saline) 100 mls @ 75 mls/hr IV ASDIRECTED [facility] Last Admin: 02/13/19 15:01 Dose: 75 mls/hr Lidocaine HCl (Xylocaine-Mpf 1%) Confirm Administered Dose 6 mls @ as directed .ROUTE .STK-MED ONE Stop: 02/14/19 14:37 Lactated Ringer's (Ringers, Lactated) Confirm Administered Dose 2,000 mls @ as directed .ROUTE .STK-MED ONE Stop: 02/14/19 14:37 Phenylephrine HCl 1 mg/ Sodium (Chloride) 10.1 mls @ 1 mls/sec IV TITRATE [facility]; Protocol Magnesium Sulfate 2 gm/ Premix 50 mls @ 25 mls/hr IV ONETIME ONE Stop: 02/16/19 13:32 Last Admin: 02/16/19 11:59 Dose: 25 mls/hr Iodine (Iodine 2% Mild Tincture) Confirm Administered Dose 30 ml .ROUTE .STK- MED ONE Stop: 02/14/19 16:22 Last Admin: 02/14/19 16:24 Dose: 18 ml Iopamidol (Isovue-370 (76%)) 100 ml IVPUSH ONETIME ONE Stop: 02/13/19 14:29 Last Admin: 02/13/19 15:00 Dose: 100 ml Iopamidol (Isovue-300 (61%)) 100 ml IVPUSH ONETIME ONE Stop: 02/14/19 12:50 Last Admin: 02/14/19 13:11 Dose: 100 ml Lorazepam (Ativan) 0.5 mg IV Q6H PRN PRN Reason: Anxiety Lorazepam (Ativan) 1 mg PO NOW STA Stop: 02/12/19 10:00 Last Admin: 02/12/19 10:16 Dose: 1 mg Metoclopramide HCl (Reglan) 10 mg IVPUSH ONETIME ONE Stop: 02/11/19 03:55 Last Admin: 02/11/19 04:07 Dose: 10 mg Midazolam HCl (Versed 1 Mg/Ml) Confirm Administered Dose 2 mg .ROUTE .STK-MED ONE Stop: 02/11/19 12:35 Midazolam HCl (Versed 1 Mg/Ml) Confirm Administered Dose 2 mg .ROUTE .STK-MED ONE Stop: 02/14/19 14:38 Miscellaneous Information (Remove Patch) 0 ea TRDERM ONETIME ONE Stop: 02/14/19 13:31 Last Admin: 02/14/19 13:35 Dose: Not Given Neostigmine Methylsulfate (Neostigmine) Confirm Administered Dose 5 mg .ROUTE .STK-MED ONE Stop: 02/11/19 13:58 Ondansetron HCl (Zofran) Confirm Administered Dose 4 mg .ROUTE .STK-MED ONE Stop: 02/11/19 12:35 Ondansetron HCl (Zofran) Confirm Administered Dose 4 mg .ROUTE .STK-MED ONE Stop: 02/14/19 14:37 Ondansetron HCl (Zofran) 4 mg IVPUSH ONETIME PRN PRN Reason: Nausea/Vomiting Phenylephrine HCl (Phenylephrine In Ns 100 Mcg/Ml) Confirm Administered Dose 1 mg .ROUTE .STK-MED ONE Stop: 02/14/19 15:37 Potassium Chloride (Klor-Con M20) 60 meq PO ONETIME ONE Stop: 02/11/19 19:45 Last Admin: 02/11/19 20:21 Dose: 60 meq Potassium Chloride (Klor-Con M20) 40 meq PO ONETIME ONE Stop: 02/16/19 11:34 Last Admin: 02/16/19 12:03 Dose: 40 meq Propofol (Diprivan 20 Ml) Confirm Administered Dose 200 mg .ROUTE .STK-MED ONE Stop: 02/11/19 12:35 Propofol (Diprivan 20 Ml) Confirm Administered Dose 400 mg .ROUTE .STK-MED ONE Stop: 02/11/19 13:30 Propofol (Diprivan 20 Ml) Confirm Administered Dose 200 mg .ROUTE .STK-MED ONE Stop: 02/14/19 14:37 Rocuronium Bantam (Zemuron) Confirm Administered Dose 50 mg .ROUTE .STK-MED ONE Stop: 02/11/19 12:35 Rocuronium Bantam (Zemuron) Confirm Administered Dose 50 mg .ROUTE .STK-MED ONE Stop: 02/14/19 14:37 Scopolamine (Transderm-Scop) 1.5 mg TOP ONETIME ONE Stop: 02/11/19 10:20 Last Admin: 02/11/19 10:35 Dose: 1.5 mg Scopolamine (Transderm-Scop) 1.5 mg TRDERM ONETIME [facility] Last Admin: 02/11/19 13:36 Dose: 1.5 mg Scopolamine (Transderm-Scop) 1.5 mg TRDERM ONETIME ONE Stop: 02/14/19 14:31 Last Admin: 02/14/19 14:40 Dose: 1.5 mg Succinylcholine Chloride (Succinylcholine In Ns Pf) Confirm Administered Dose 100 mg .ROUTE .STK-MED ONE Stop: 02/14/19 14:37 Temazepam (Restoril) 15 mg PO BEDTIME PRN PRN Reason: Sleep Vancomycin HCl (Pharmacy To Dose - Vancomycin) 1 dose .XX ASDIRECTED [facility] Vancomycin HCl (Pharmacy To Dose - Vancomycin) 0 dose .XX ASDIRECTED PRN PRN Reason: RX TO DOSE VANCOMYCIN Vancomycin HCl (Vancomycin) Confirm Administered Dose 1 gm .ROUTE .STK-MED ONE Stop: 02/14/19 16:00 Last Admin: 02/14/19 16:15 Dose: 1 gm - Exam Wound/Incisions: Dressing Dry and Intact, Other (JOHN in place and functioning.) General: Alert, Cooperative, No Acute Distress Lungs: Normal Respiratory Effort Extremities: Other (Left thigh soft, nontender. SLR LLE without complaint. Kristina's negative. ) - Problem List Review Problem List Initiated/Reviewed/Updated: Yes - My Orders Last 24 Hours: Active Orders 24 hr Category Date Time Status CBC W/O DIFF,HEMOGRAM [HEME] MOTH@0700 Lab 02/18/19 07:00 Ordered CBC W/O DIFF,HEMOGRAM [HEME] MOTH@0700 Lab 02/22/19 07:00 Ordered CBC W/O DIFF,HEMOGRAM [HEME] MOTH@0700 Lab 02/25/19 07:00 Ordered CBC W/O DIFF,HEMOGRAM [HEME] MOTH@0700 Lab 03/01/19 07:00 Ordered CBC W/O DIFF,HEMOGRAM [HEME] MOTH@0700 Lab 03/04/19 07:00 Ordered Remove Patch Med 02/17/19 14:30 Once 0 ea TRDERM ONETIME ONE Medication Orders Acetaminophen (Tylenol) 650 mg PO Q4H PRN PRN Reason: Pain (Mild 1-3)/fever Last Admin: 02/12/19 17:17 Dose: 650 mg Admin: 02/12/19 12:15 Dose: 650 mg Admin: 02/12/19 08:08 Dose: 650 mg Admin: 02/11/19 23:56 Dose: 650 mg Admin: 02/11/19 17:20 Dose: 650 mg Albuterol/Ipratropium (Duoneb 3.0-0.5 Mg/3 Ml) 3 ml NEB Q4H PRN PRN Reason: Shortness Of Breath/wheezing Bisacodyl (Dulcolax) 5 mg PO DAILY PRN PRN Reason: Constipation Docusate Sodium (Colace) 100 mg PO BID PRN PRN Reason: Constipation Last Admin: 02/14/19 20:51 Dose: 100 mg Admin: 02/13/19 20:55 Dose: 100 mg Gabapentin (Neurontin) 300 mg PO DAILY [facility] Last Admin: 02/16/19 09:53 Dose: 300 mg Admin: 02/15/19 09:00 Dose: 300 mg Admin: 02/14/19 08:48 Dose: 300 mg Admin: 02/13/19 08:04 Dose: 300 mg Admin: 02/12/19 08:08 Dose: 300 mg Admin: 02/11/19 09:51 Dose: Guaifenesin/Phenylephrine HCl (Robitussin Dm) 10 ml PO Q4H PRN PRN Reason: Cough Last Admin: 02/12/19 17:18 Dose: 10 ml Admin: 02/12/19 12:15 Dose: 10 ml Admin: 02/12/19 08:07 Dose: 10 ml Admin: 02/11/19 23:56 Dose: 10 ml Heparin Sodium (Porcine) (Heparin Sodium) 5,000 units SUBCUT Q8H [facility] Last Admin: 02/16/19 12:05 Dose: 5,000 units Admin: 02/16/19 04:14 Dose: 5,000 units Admin: 02/15/19 20:21 Dose: 5,000 units Admin: 02/15/19 12:32 Dose: 5,000 units Admin: 02/15/19 03:56 Dose: 5,000 units Admin: 02/14/19 20:34 Dose: 5,000 units Admin: 02/14/19 12:50 Dose: 5,000 units Admin: 02/14/19 03:53 Dose: 5,000 units Admin: 02/13/19 20:30 Dose: 5,000 units Admin: 02/13/19 12:33 Dose: 5,000 units Admin: 02/13/19 04:25 Dose: 5,000 units Admin: 02/12/19 20:38 Dose: 5,000 units Admin: 02/12/19 12:14 Dose: 5,000 units Admin: 02/12/19 04:59 Dose: 5,000 units Admin: 02/11/19 20:14 Dose: 5,000 units Hydralazine HCl (Apresoline) 20 mg IVPUSH Q4H PRN PRN Reason: Hypertension Hydromorphone HCl (Dilaudid) 0.5 mg IVPUSH Q2H PRN PRN Reason: Pain (severe 7-10) Last Admin: 02/14/19 13:33 Dose: 0.5 mg Promethazine HCl 6.25 mg/ (Sodium Chloride) 50.25 mls @ 100 mls/hr IV Q6H PRN PRN Reason: Nausea/Vomiting Piperacillin Sod/Tazobactam (Sod 4.5 gm/ Sodium Chloride) 100 mls @ 25 mls/hr IV Q8H [facility] Last Admin: 02/16/19 16:42 Dose: 25 mls/hr Infusion: 02/16/19 13:53 Dose: 25 mls/hr Admin: 02/16/19 09:53 Dose: 25 mls/hr Infusion: 02/16/19 04:17 Dose: 25 mls/hr Admin: 02/16/19 00:17 Dose: 25 mls/hr Infusion: 02/15/19 20:30 Dose: 25 mls/hr Admin: 02/15/19 16:30 Dose: 25 mls/hr Infusion: 02/15/19 12:54 Dose: 25 mls/hr Admin: 02/15/19 08:54 Dose: 25 mls/hr Infusion: 02/15/19 04:39 Dose: 25 mls/hr Admin: 02/15/19 00:39 Dose: 25 mls/hr Infusion: 02/14/19 23:24 Dose: 25 mls/hr Admin: 02/14/19 19:24 Dose: 25 mls/hr Infusion: 02/14/19 12:48 Dose: 25 mls/hr Admin: 02/14/19 08:48 Dose: 25 mls/hr Infusion: 02/14/19 05:03 Dose: 25 mls/hr Admin: 02/14/19 01:03 Dose: 25 mls/hr Infusion: 02/13/19 21:14 Dose: 25 mls/hr Admin: 02/13/19 17:14 Dose: 25 mls/hr Infusion: 02/13/19 12:04 Dose: 25 mls/hr Admin: 02/13/19 08:04 Dose: 25 mls/hr Infusion: 02/13/19 04:55 Dose: 25 mls/hr Admin: 02/13/19 00:55 Dose: 25 mls/hr Infusion: 02/12/19 20:37 Dose: 25 mls/hr Admin: 02/12/19 16:37 Dose: 25 mls/hr Infusion: 02/12/19 12:08 Dose: 25 mls/hr Admin: 02/12/19 08:08 Dose: 25 mls/hr Infusion: 02/12/19 04:00 Dose: 25 mls/hr Admin: 02/12/19 00:00 Dose: 25 mls/hr Infusion: 02/11/19 20:33 Dose: 25 mls/hr Admin: 02/11/19 16:33 Dose: 25 mls/hr Sodium Chloride (Normal Saline) 25 mls @ 25 mls/hr IV ASDIRECTED [facility] Sodium Chloride (Normal Saline) 1,000 mls @ 25 mls/hr IV ASDIRECTED [facility] Stop: 02/18/19 18:47 Last Admin: 02/14/19 19:49 Dose: 25 mls/hr Metoprolol Tartrate (Lopressor) 5 mg IVPUSH Q4H PRN PRN Reason: Tachycardia Miscellaneous Information (Remove Patch) 0 ea TRDERM ONETIME ONE Stop: 02/17/19 14:31 Multivitamins (Thera) 1 each PO DAILY [facility] Last Admin: 02/16/19 09:53 Dose: 1 each Admin: 02/15/19 09:00 Dose: 1 each Admin: 02/14/19 08:48 Dose: 1 each Admin: 02/13/19 08:04 Dose: 1 each Admin: 02/12/19 08:08 Dose: 1 each Admin: 02/11/19 09:51 Dose: Nystatin (Nystop) 1 gm TOP TID [facility] Last Admin: 02/16/19 14:35 Dose: 1 gm Admin: 02/16/19 08:40 Dose: 1 gm Admin: 02/15/19 20:22 Dose: 1 gm Admin: 02/15/19 16:00 Dose: 1 gm Admin: 02/15/19 09:04 Dose: 1 gm Admin: 02/14/19 20:43 Dose: Not Given Admin: 02/14/19 19:05 Dose: Not Given Admin: 02/14/19 08:50 Dose: 1 gm Admin: 02/13/19 20:47 Dose: 1 gm Admin: 02/13/19 17:15 Dose: 1 gm Admin: 02/13/19 08:04 Dose: 1 gm Admin: 02/12/19 20:38 Dose: 1 gm Admin: 02/12/19 15:01 Dose: 1 gm Admin: 02/12/19 10:15 Dose: 1 gm Ondansetron HCl (Zofran) 4 mg IV Q6H PRN PRN Reason: Nausea/Vomiting Last Admin: 02/13/19 20:55 Dose: 4 mg Admin: 02/13/19 13:25 Dose: 4 mg Admin: 02/12/19 08:08 Dose: 4 mg Admin: 02/11/19 12:56 Dose: 4 mg Oxycodone HCl (Oxycodone) 5 mg PO Q4H PRN PRN Reason: Pain (moderate 4-6) Last Admin: 02/13/19 20:29 Dose: 5 mg Admin: 02/12/19 20:48 Dose: 5 mg Admin: 02/12/19 17:17 Dose: 5 mg Admin: 02/12/19 10:15 Dose: 5 mg Pantoprazole Sodium (Protonix) 40 mg PO Q12HR [facility] Last Admin: 02/16/19 09:53 Dose: 40 mg Admin: 02/15/19 20:22 Dose: 40 mg Admin: 02/15/19 09:00 Dose: 40 mg Admin: 02/14/19 20:34 Dose: 40 mg Admin: 02/14/19 08:48 Dose: 40 mg Admin: 02/13/19 20:29 Dose: 40 mg Admin: 02/13/19 08:04 Dose: 40 mg Admin: 02/12/19 20:39 Dose: 40 mg Admin: 02/12/19 08:08 Dose: 40 mg Admin: 02/11/19 20:21 Dose: 40 mg Admin: 02/11/19 09:51 Dose: Polyethylene Glycol (Miralax) 17 gm PO DAILY PRN PRN Reason: Constipation Promethazine HCl (Phenergan) 25 mg PO Q8H PRN PRN Reason: Nausea/Vomiting Last Admin: 02/13/19 20:28 Dose: 25 mg Admin: 02/13/19 12:33 Dose: 25 mg Admin: 02/13/19 01:02 Dose: 25 mg Admin: 02/12/19 18:16 Dose: 25 mg Senna/Docusate Sodium (Senna Plus) 1 tab PO BID PRN PRN Reason: Constipation Sodium Chloride (Saline Flush) 10 ml FLUSH ASDIRECTED PRN PRN Reason: Keep Vein Open Last Admin: 02/14/19 13:11 Dose: 10 ml Valacyclovir HCl (Valtrex) 1,000 mg PO TID [facility] Last Admin: 02/16/19 14:34 Dose: 1,000 mg Admin: 02/16/19 09:53 Dose: 1,000 mg Admin: 02/15/19 20:22 Dose: 1,000 mg Admin: 02/15/19 15:33 Dose: 1,000 mg Admin: 02/15/19 09:00 Dose: 1,000 mg Admin: 02/14/19 20:34 Dose: 1,000 mg Admin: 02/14/19 19:05 Dose: Not Given Admin: 02/14/19 08:48 Dose: 1,000 mg Admin: 02/13/19 21:21 Dose: 1,000 mg Admin: 02/13/19 17:15 Dose: 1,000 mg Admin: 02/13/19 08:04 Dose: 1,000 mg Admin: 02/12/19 20:39 Dose: 1,000 mg Admin: 02/12/19 15:01 Dose: 1,000 mg Admin: 02/12/19 10:16 Dose: 1,000 mg Zolpidem Tartrate (Ambien) 5 mg PO BEDTIME [facility] Last Admin: 02/15/19 20:22 Dose: 5 mg Admin: 02/14/19 20:34 Dose: 5 mg Admin: 02/13/19 20:28 Dose: 5 mg Admin: 02/12/19 20:47 Dose: Not Given - Assessment Assessment (Free Text/Narrative):: POD#2 - s/p I&D left gluteal mass; hx left KATHIE - Plan Plan (Free Text/Narrative):: 1. CPR and WBC improved. 2. PICC placed today. 3. Sensitivities available 02-17-2019 and likely will d/c to home with outpatient IV antibiotic therapy. 4. Heparin at this time. Will d/c to home on ASA PO BID. 5. Hospitalist service is also following. The pt will remain in Hospital > 96 hours while awaiting culture results, for continued therapy and monitoring. The pt's case was discussed with Dr. Maurice.
[2019-02-16] MEDS: oxyCODONE 5 MG Tab PO PRN (18:25)
[2019-02-16] MEDS: Zolpidem 5 MG Tab PO SCH (20:34)
[2019-02-17] MEDS: Piperacillin/Tazobactam 4.5 GM in Sodium Chloride 0.9% 100 ML IV SCH ×2 (01:01→08:28)
[2019-02-17] MEDS: Heparin Sodium 5,000 Units/ML Vial SUBCUT SCH ×2 (04:06→12:39)
[2019-02-17] MEDS: Multivitamins,Therapeutic Tab PO SCH (08:28)
[2019-02-17] MEDS: valACYclovir 1,000 MG Tab PO SCH (08:28)
[2019-02-17] MEDS: Pantoprazole 40 MG Tab.CR PO SCH (08:28)
[2019-02-17] MEDS: Gabapentin 300 MG Cap PO SCH (08:28)
[2019-02-17] MEDS: Nystatin Topical Powder 15 GM Bottle TOP SCH (08:33)
--- NOTE | 2019-02-17 08:42 | PCM.SN ---
- Free Text/Narrative Note: 02/17/19 0800 Was consulted to evaluate PICC line which was placed yesterday by Paul Thompson. Medial right arm distal to PICC insertion is red and slightly edematous. I suspect it is a mechanical phlebitis which needs to be treated with warm wet pack 30 min times 4 per day. Usually resolves in a few days. Also noted in area was a previous IV site. Patient may be discharged today and will be reevaluated when antibiotics given. Mya SOLIS
[2019-02-17 12:37] VITALS: BP 128/74; PULSE 95
--- NOTE | 2019-02-17 13:55 | PCM.OPNOTE ---
- General Post-Op/Procedure Note Date of Surgery/Procedure: 02/14/19 Operative Procedure(s): irrigation and debridement of left gluteal abscess with poly and head exchange Pre Op Diagnosis: gluteal abscess of left total hip arthroplasty Post-Op Diagnosis: Same Anesthesia Technique: General ET Tube Primary Surgeon: Chaitanya Maurice Anesthesia Provider: Janelle Johnston Scrubbing Machine Operator: Chelly Lo EBL in mLs: 200 Complications: None Condition: Good Free Text/Narrative:: Intake & Output 02/16/19 02/17/19 02/17/19 22:59 06:59 14:59 Intake Total 768 700 120 Output Total 650 400 Balance 118 300 120
--- NOTE | 2019-02-17 14:16 | PCM.CONSN ---
- General Info Date of Service: 02/17/19 Admission Dx/Problem (Free Text): Admission Diagnosis/Problem Admission Diagnosis/Problem Acute febrile illness fever confusion. left lateral thigh cellulitis. l orif nausea/hicccups tachicardia Subjective Update: patient continues to be afebrile and is doing well. He has more energy. His culture results have returned group G strep sensitive to Rocephin. Functional Status: Reports: Pain Controlled - Review of Systems General: Reports: No Symptoms HEENT: Reports: No Symptoms Pulmonary: Reports: No Symptoms Cardiovascular: Reports: No Symptoms - Patient Data Vitals - Most Recent: Last Vital Signs Temp 97.7 F 02/17/19 12:00 Pulse 95 02/17/19 12:00 Resp 18 02/17/19 12:00 BP 128/74 02/17/19 12:00 Pulse Ox 94 L 02/17/19 12:00 Weight - Most Recent: 198 lb I&O - Last 24 Hours: Intake & Output 02/16/19 02/17/19 02/17/19 22:59 06:59 14:59 Intake Total 768 700 120 Output Total 650 400 Balance 118 300 120 Lab Results Last 24 Hours: Laboratory Results - last 24 hr 02/17/19 02/17/19 Range/Units 08:10 08:10 WBC 12.90 H (4.23-9.07) K/mm3 RBC 3.93 L (4.63-6.08) M/mm3 Hgb 11.4 L (13.7-17.5) gm/L Hct 34.2 L (40.1-51.0) % MCV 87.0 (79.0-92.2) fl MCH 29.0 (25.7-32.2) pg MCHC 33.3 (32.2-35.5) g/dl RDW Std Deviation 48.1 H (35.1-43.9) fL Plt Count 433 H D (163-337) K/mm3 MPV 9.3 L (9.4-12.3) fl Neut % (Auto) 61.6 (34.0-67.9) % Lymph % (Auto) 15.7 L (21.8-53.1) % Carlton % (Auto) 11.2 (5.3-12.2) % Eos % (Auto) 2.8 (0.8-7.0) Baso % (Auto) 0.2 (0.1-1.2) % Neut # (Auto) 7.95 H (1.78-5.38) K/mm3 Lymph # (Auto) 2.02 (1.32-3.57) K/mm3 Carlton # (Auto) 1.44 H (0.30-0.82) K/mm3 Eos # (Auto) 0.36 (0.04-0.54) K/mm3 Baso # (Auto) 0.03 (0.01-0.08) K/mm3 Manual Slide Review Abnormal smear Sodium 139 (136-145) mEq/L Potassium 3.9 (3.5-5.1) mEq/L Chloride 106 (98-107) mEq/L Carbon Dioxide 26 (21-32) mEq/L Anion Gap 10.9 (5-15) BUN 11 (7-18) mg/dL Creatinine 0.8 (0.7-1.3) mg/dL Est Cr Clr Drug Dosing 95.43 mL/min Estimated GFR (MDRD) > 60 (>60) mL/min BUN/Creatinine Ratio 13.8 L (14-18) Glucose 107 (80-115) mg/dL Calcium 8.9 (8.5-10.1) mg/dL Magnesium 2.2 (1.8-2.4) mg/dl Total Bilirubin 0.4 (0.2-1.0) mg/dL AST 23 (15-37) U/L ALT 97 H (16-63) U/L Alkaline Phosphatase 118 H (46-116) U/L C-Reactive Protein 7.3 H* (<1.0) mg/dL Total Protein 6.7 (6.4-8.2) g/dl Albumin 2.5 L (3.4-5.0) g/dl Globulin 4.2 gm/dL Albumin/Globulin Ratio 0.6 L (1-2) Jorge A Results Last 24 Hours: Microbiology 02/14/19 15:50 Gram Stain - Final Hip, Left Anaerobic Culture - Final Beta Streptococcus Group G 02/14/19 15:51 Gram Stain - Final Hip, Left Anaerobic Culture - Final Beta Streptococcus Group G 02/14/19 15:52 Gram Stain - Final Hip, Left Anaerobic Culture - Final Beta Streptococcus Group G 02/11/19 04:05 Aerobic Blood Culture - Preliminary Blood - Venous - Lab Draw NO GROWTH AFTER 6 DAYS Anaerobic Blood Culture - Preliminary NO GROWTH AFTER 6 DAYS 02/11/19 04:18 Aerobic Blood Culture - Preliminary Blood - Venous NO GROWTH AFTER 6 DAYS Anaerobic Blood Culture - Preliminary NO GROWTH AFTER 6 DAYS Med Orders - Current: Current Medications Acetaminophen (Tylenol) 650 mg PO Q4H PRN PRN Reason: Pain (Mild 1-3)/fever Last Admin: 02/12/19 17:17 Dose: 650 mg Albuterol/Ipratropium (Duoneb 3.0-0.5 Mg/3 Ml) 3 ml NEB Q4H PRN PRN Reason: Shortness Of Breath/wheezing Bisacodyl (Dulcolax) 5 mg PO DAILY PRN PRN Reason: Constipation Docusate Sodium (Colace) 100 mg PO BID PRN PRN Reason: Constipation Last Admin: 02/14/19 20:51 Dose: 100 mg Gabapentin (Neurontin) 300 mg PO DAILY [facility] Last Admin: 02/17/19 08:28 Dose: 300 mg Guaifenesin/Phenylephrine HCl (Robitussin Dm) 10 ml PO Q4H PRN PRN Reason: Cough Last Admin: 02/12/19 17:18 Dose: 10 ml Heparin Sodium (Porcine) (Heparin Sodium) 5,000 units SUBCUT Q8H [facility] Last Admin: 02/17/19 12:39 Dose: 5,000 units Hydralazine HCl (Apresoline) 20 mg IVPUSH Q4H PRN PRN Reason: Hypertension Hydromorphone HCl (Dilaudid) 0.5 mg IVPUSH Q2H PRN PRN Reason: Pain (severe 7-10) Last Admin: 02/14/19 13:33 Dose: 0.5 mg Promethazine HCl 6.25 mg/ (Sodium Chloride) 50.25 mls @ 100 mls/hr IV Q6H PRN PRN Reason: Nausea/Vomiting Piperacillin Sod/Tazobactam (Sod 4.5 gm/ Sodium Chloride) 100 mls @ 25 mls/hr IV Q8H [facility] Last Admin: 02/17/19 08:28 Dose: 25 mls/hr Metoprolol Tartrate (Lopressor) 5 mg IVPUSH Q4H PRN PRN Reason: Tachycardia Miscellaneous Information (Remove Patch) 0 ea TRDERM ONETIME ONE Stop: 02/17/19 14:31 Multivitamins (Thera) 1 each PO DAILY [facility] Last Admin: 02/17/19 08:28 Dose: 1 each Nystatin (Nystop) 1 gm TOP TID [facility] Last Admin: 02/17/19 08:33 Dose: 1 gm Ondansetron HCl (Zofran) 4 mg IV Q6H PRN PRN Reason: Nausea/Vomiting Last Admin: 02/13/19 20:55 Dose: 4 mg Oxycodone HCl (Oxycodone) 5 mg PO Q4H PRN PRN Reason: Pain (moderate 4-6) Last Admin: 02/16/19 18:25 Dose: 5 mg Pantoprazole Sodium (Protonix) 40 mg PO Q12HR [facility] Last Admin: 02/17/19 08:28 Dose: 40 mg Polyethylene Glycol (Miralax) 17 gm PO DAILY PRN PRN Reason: Constipation Promethazine HCl (Phenergan) 25 mg PO Q8H PRN PRN Reason: Nausea/Vomiting Last Admin: 02/13/19 20:28 Dose: 25 mg Senna/Docusate Sodium (Senna Plus) 1 tab PO BID PRN PRN Reason: Constipation Sodium Chloride (Saline Flush) 10 ml FLUSH ASDIRECTED PRN PRN Reason: Keep Vein Open Last Admin: 02/14/19 13:11 Dose: 10 ml Valacyclovir HCl (Valtrex) 1,000 mg PO TID [facility] Last Admin: 02/17/19 08:28 Dose: 1,000 mg Zolpidem Tartrate (Ambien) 5 mg PO BEDTIME [facility] Last Admin: 02/16/19 20:34 Dose: 5 mg Discontinued Medications Acetaminophen (Tylenol) 975 mg PO ONETIME ONE Stop: 02/11/19 04:02 Last Admin: 02/11/19 04:51 Dose: 975 mg Albuterol (Proventil Neb Soln) 2.5 mg NEB ONETIME ONE Stop: 02/14/19 15:36 Last Admin: 02/14/19 17:28 Dose: 2.5 mg Dexamethasone (Dexamethasone) Confirm Administered Dose 20 mg .ROUTE .STK-MED ONE Stop: 02/11/19 12:35 Dexamethasone (Dexamethasone) Confirm Administered Dose 20 mg .ROUTE .STK-MED ONE Stop: 02/14/19 14:37 Diphenhydramine HCl (Benadryl) Confirm Administered Dose 50 mg .ROUTE .STK-MED ONE Stop: 02/14/19 14:37 Ephedrine Sulfate (Ephedrine Sulfate) 5 mg IVPUSH ASDIRECTED PRN PRN Reason: Hypotension Fentanyl (Sublimaze) Confirm Administered Dose 250 mcg .ROUTE .STK-MED ONE Stop: 02/11/19 12:35 Fentanyl (Sublimaze) Confirm Administered Dose 250 mcg .ROUTE .STK-MED ONE Stop: 02/14/19 14:38 Fentanyl (Sublimaze) 50 mcg IVPUSH Q5M PRN PRN Reason: Pain Glycopyrrolate () Confirm Administered Dose 1 mg .ROUTE .STK-MED ONE Stop: 02/11/19 13:58 Haloperidol Lactate (Haldol) 1 mg IVPUSH ONETIME ONE Stop: 02/14/19 15:36 Last Admin: 02/14/19 18:48 Dose: Not Given Hydromorphone HCl (Dilaudid) 1 mg IVPUSH ONETIME ONE Stop: 02/11/19 03:55 Last Admin: 02/11/19 04:09 Dose: 1 mg Hydromorphone HCl (Dilaudid) 0.5 mg IVPUSH Q15M PRN PRN Reason: Pain (severe 7-10) Hydromorphone HCl (Dilaudid) Confirm Administered Dose 0.5 mg .ROUTE .STK-MED ONE Stop: 02/14/19 16:34 Dextrose/Sodium Chloride (Dextrose 5%-Normal Saline) 1,000 mls @ 125 mls/hr IV ASDIRECTED AUGIE Last Admin: 02/11/19 04:09 Dose: 125 mls/hr Linezolid 600 mg/ Premix 300 mls @ 300 mls/hr IV ONETIME ONE Stop: 02/11/19 05:26 Last Admin: 02/11/19 04:51 Dose: 300 mls/hr Vancomycin HCl 2 gm/ Sodium (Chloride) 500 mls @ 250 mls/hr IV ONETIME ONE Stop: 02/11/19 05:20 Last Admin: 02/11/19 06:07 Dose: 250 mls/hr Lactated Ringer's (Ringers, Lactated) 1,000 mls @ 125 mls/hr IV ASDIRECTED [facility] Last Admin: 02/12/19 11:41 Dose: 125 mls/hr Piperacillin Sod/Tazobactam (Sod 4.5 gm/ Sodium Chloride) 100 mls @ 200 mls/hr IV ONETIME ONE Stop: 02/11/19 09:29 Last Admin: 02/11/19 09:50 Dose: 200 mls/hr Vancomycin HCl 500 mg/ Sodium (Chloride) 250 mls @ 166.667 mls/hr IV Q12H [facility] Vancomycin HCl 1 gm/Vancomycin HCl 500 mg/ Sodium Chloride 500 mls @ 250 mls/ hr IV Q12H [facility] Last Admin: 02/12/19 18:09 Dose: Not Given Lactated Ringer's (Ringers, Lactated) Confirm Administered Dose 0 mls @ as directed .ROUTE .STK-MED ONE Stop: 02/11/19 12:35 Lidocaine HCl (Xylocaine-Mpf 1%) Confirm Administered Dose 2 mls @ as directed .ROUTE .[facility]-MED ONE Stop: 02/11/19 12:38 Magnesium Sulfate 4 gm/ Premix 50 mls @ 12.5 mls/hr IV ONETIME ONE Stop: 02/11/19 23:44 Last Admin: 02/11/19 20:23 Dose: 12.5 mls/hr Levofloxacin/Dextrose 750 mg/ (Premix) 150 mls @ 100 mls/hr IV Q24H [facility] Last Admin: 02/11/19 20:48 Dose: Not Given Sodium Chloride (Normal Saline) 500 mls @ 500 mls/hr IV .BOLUS ONE Stop: 02/12/19 18:56 Last Admin: 02/12/19 18:16 Dose: 500 mls/hr Vancomycin HCl 1 gm/Vancomycin HCl 500 mg/ Sodium Chloride 500 mls @ 250 mls/ hr IV Q12H [facility] Vancomycin HCl 1 gm/Vancomycin HCl 500 mg/ Sodium Chloride 500 mls @ 250 mls/ hr IV Q8H [facility] Last Admin: 02/16/19 04:20 Dose: 250 mls/hr Sodium Chloride (Normal Saline) 1,000 mls @ 100 mls/hr IV ASDIRECTED [facility] Last Admin: 02/13/19 14:23 Dose: 100 mls/hr Sodium Chloride (Normal Saline) 100 mls @ 75 mls/hr IV ASDIRECTED [facility] Last Admin: 02/13/19 15:01 Dose: 75 mls/hr Lidocaine HCl (Xylocaine-Mpf 1%) Confirm Administered Dose 6 mls @ as directed .ROUTE .STK-MED ONE Stop: 02/14/19 14:37 Lactated Ringer's (Ringers, Lactated) Confirm Administered Dose 2,000 mls @ as directed .ROUTE .STK-MED ONE Stop: 02/14/19 14:37 Sodium Chloride (Normal Saline) 25 mls @ 25 mls/hr IV ASDIRECTED AUGIE Phenylephrine HCl 1 mg/ Sodium (Chloride) 10.1 mls @ 1 mls/sec IV TITRATE AUGIE; Protocol Sodium Chloride (Normal Saline) 1,000 mls @ 25 mls/hr IV ASDIRECTED AUGIE Stop: 02/18/19 18:47 Last Admin: 02/14/19 19:49 Dose: 25 mls/hr Magnesium Sulfate 2 gm/ Premix 50 mls @ 25 mls/hr IV ONETIME ONE Stop: 02/16/19 13:32 Last Admin: 02/16/19 11:59 Dose: 25 mls/hr Iodine (Iodine 2% Mild Tincture) Confirm Administered Dose 30 ml .ROUTE .STK- MED ONE Stop: 02/14/19 16:22 Last Admin: 02/14/19 16:24 Dose: 18 ml Iopamidol (Isovue-370 (76%)) 100 ml IVPUSH ONETIME ONE Stop: 02/13/19 14:29 Last Admin: 02/13/19 15:00 Dose: 100 ml Iopamidol (Isovue-300 (61%)) 100 ml IVPUSH ONETIME ONE Stop: 02/14/19 12:50 Last Admin: 02/14/19 13:11 Dose: 100 ml Lorazepam (Ativan) 0.5 mg IV Q6H PRN PRN Reason: Anxiety Lorazepam (Ativan) 1 mg PO NOW STA Stop: 02/12/19 10:00 Last Admin: 02/12/19 10:16 Dose: 1 mg Metoclopramide HCl (Reglan) 10 mg IVPUSH ONETIME ONE Stop: 02/11/19 03:55 Last Admin: 02/11/19 04:07 Dose: 10 mg Midazolam HCl (Versed 1 Mg/Ml) Confirm Administered Dose 2 mg .ROUTE .STK-MED ONE Stop: 02/11/19 12:35 Midazolam HCl (Versed 1 Mg/Ml) Confirm Administered Dose 2 mg .ROUTE .ST-MED ONE Stop: 02/14/19 14:38 Miscellaneous Information (Remove Patch) 0 ea TRDERM ONETIME ONE Stop: 02/14/19 13:31 Last Admin: 02/14/19 13:35 Dose: Not Given Neostigmine Methylsulfate (Neostigmine) Confirm Administered Dose 5 mg .ROUTE .STK-MED ONE Stop: 02/11/19 13:58 Ondansetron HCl (Zofran) Confirm Administered Dose 4 mg .ROUTE .STK-MED ONE Stop: 02/11/19 12:35 Ondansetron HCl (Zofran) Confirm Administered Dose 4 mg .ROUTE .ST-MED ONE Stop: 02/14/19 14:37 Ondansetron HCl (Zofran) 4 mg IVPUSH ONETIME PRN PRN Reason: Nausea/Vomiting Phenylephrine HCl (Phenylephrine In Ns 100 Mcg/Ml) Confirm Administered Dose 1 mg .ROUTE .ST-MED ONE Stop: 02/14/19 15:37 Potassium Chloride (Klor-Con M20) 60 meq PO ONETIME ONE Stop: 02/11/19 19:45 Last Admin: 02/11/19 20:21 Dose: 60 meq Potassium Chloride (Klor-Con M20) 40 meq PO ONETIME ONE Stop: 02/16/19 11:34 Last Admin: 02/16/19 12:03 Dose: 40 meq Propofol (Diprivan 20 Ml) Confirm Administered Dose 200 mg .ROUTE .STK-MED ONE Stop: 02/11/19 12:35 Propofol (Diprivan 20 Ml) Confirm Administered Dose 400 mg .ROUTE .STK-MED ONE Stop: 02/11/19 13:30 Propofol (Diprivan 20 Ml) Confirm Administered Dose 200 mg .ROUTE .ST-MED ONE Stop: 02/14/19 14:37 Rocuronium [place] (Zemuron) Confirm Administered Dose 50 mg .ROUTE .STK-MED ONE Stop: 02/11/19 12:35 Rocuronium [place] (Zemuron) Confirm Administered Dose 50 mg .ROUTE .STK-MED ONE Stop: 02/14/19 14:37 Scopolamine (Transderm-Scop) 1.5 mg TOP ONETIME ONE Stop: 02/11/19 10:20 Last Admin: 02/11/19 10:35 Dose: 1.5 mg Scopolamine (Transderm-Scop) 1.5 mg TRDERM ONETIME AUGIE Last Admin: 02/11/19 13:36 Dose: 1.5 mg Scopolamine (Transderm-Scop) 1.5 mg TRDERM ONETIME ONE Stop: 02/14/19 14:31 Last Admin: 02/14/19 14:40 Dose: 1.5 mg Succinylcholine Chloride (Succinylcholine In Ns Pf) Confirm Administered Dose 100 mg .ROUTE .STK-MED ONE Stop: 02/14/19 14:37 Temazepam (Restoril) 15 mg PO BEDTIME PRN PRN Reason: Sleep Vancomycin HCl (Pharmacy To Dose - Vancomycin) 1 dose .XX ASDIRECTED AUGIE Vancomycin HCl (Pharmacy To Dose - Vancomycin) 0 dose .XX ASDIRECTED PRN PRN Reason: RX TO DOSE VANCOMYCIN Vancomycin HCl (Vancomycin) Confirm Administered Dose 1 gm .ROUTE .STK-MED ONE Stop: 02/14/19 16:00 Last Admin: 02/14/19 16:15 Dose: 1 gm - Exam General: Alert, Oriented HEENT: Pupils Equal, Mucous Membr. Moist/[place] Neck: Supple Lungs: Clear to Auscultation, Normal Respiratory Effort Cardiovascular: Regular Rate, Regular Rhythm GI/Abdominal Exam: Normal Bowel Sounds, Soft, Non-Tender, No Organomegaly, No Distention, No Abnormal Bruit, No Mass, Pelvis Stable Extremities: Normal Inspection, No Pedal Edema Skin: Warm, Dry, Intact Psy/Mental Status: Alert, Normal Affect, Normal Mood Consult PN Assessment/Plan Procedures: Procedures BL SMEAR W/DIFF WBC COUNT (12/31/18) BLOOD TYPING SEROLOGIC ABO (12/31/18) BLOOD TYPING SEROLOGIC RH(D) (12/31/18) CATARACT SURG W/IOL 1 STAGE (03/26/16) COMPLETE CBC AUTOMATED (12/31/18) COMPLETE CBC W/AUTO DIFF WBC (12/31/18) COMPREHEN METABOLIC PANEL (12/31/18) ELECTROCARDIOGRAM TRACING (12/31/18) EMERGENCY DEPT VISIT (12/31/18) GAIT TRAINING THERAPY (12/31/18) MEASURE BLOOD OXYGEN LEVEL (12/31/18) MEASURE BLOOD OXYGEN LEVEL (12/31/18) MR-STAPH DNA AMP PROBE (12/31/18) MRI LUMBAR SPINE W/O DYE (11/23/18) PROTHROMBIN TIME (12/31/18) PT EVAL LOW COMPLEX 20 MIN (12/31/18) RBC ANTIBODY SCREEN (12/31/18) ROUTINE VENIPUNCTURE (12/31/18) THER/PROPH/DIAG INJ IV PUSH (12/31/18) THERAPEUTIC ACTIVITIES (12/31/18) THROMBOPLASTIN TIME PARTIAL (12/31/18) TX/PRO/DX INJ NEW DRUG ADDON (12/31/18) URINALYSIS AUTO W/SCOPE (12/31/18) X-RAY EXAM HIP UNI 1 VIEW (12/31/18) X-RAY EXAM HIP UNI 2-3 VIEWS (12/31/18) X-RAY EXAM OF SKULL (11/23/18) Problem List Initiated/Reviewed/Updated: Yes Plan: Acute: Abscess left buttocks - postop from incision and drainage left buttocks - Culture growing beta Streptococcus group G - sensitive to Rocephin - discharge home on 6 week course of IV Rocephin CAP/ resolved - Productive Clear Cough and SOB - CXR report rad as patchy areas of increased density are noted within the left base - IV antibiotics as above - Sputum Cx - negative - Decongestant/Expectorant, IS as directed and PRN Supplemental O2 as needed - Consider adding Levaquin if no response to treatment - RT to assess and treat Electrolytes Abnormality - resolved - Hypokalemia - K of 3.3 - 2/2 Inadequate Intake - Replete and monitor - Hypomagnesemia - Mg of 1.6 - 2/2 Inadequate Intake - Replete and monitor Chronic: Impaired Hearing/Vision, HLD, GERD, Inguinal Hernia, Prostate CA S/p Surgery, Hx/o Back Surgery, 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
--- NOTE | 2019-02-17 14:49 | OR ---
DATE OF OPERATION: 02/14/2019 SURGEON: Chaitanya Maurice MD OPERATION PERFORMED: Irrigation and debridement of left gluteal abscess with a poly and head exchange. 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 ANESTHESIA: Technique: General endotracheal intubation. ANESTHESIA PROVIDER: Janelle Johnston CRNA. PROPERTY DEVELOPER: Chelly Lo PA-C. ESTIMATED BLOOD LOSS: 200 mL. COMPLICATIONS: None. CONDITION: Stable. DESCRIPTION OF PROCEDURE: The patient was identified in the preoperative holding area. Proper site was marked and identified by surgeon. The patient was taken back to the operating theater, where after adequate anesthesia, the patient was placed in a right lateral decubitus position. Axillary roll was placed. Pegs were then placed and well padded. The patient's gluteal fold was parallel to the floor. Left hip was then sterilely prepped and draped in the usual sterile fashion. OR time- out was performed. The patient did not receive antibiotics as he had been receiving them earlier and was going to be dosed after cultures were taken. At this time, previous incision was utilized as well as a little bit superior to that. This was taken down to the gluteal fascia which was then incised. Once I was in the gluteal fascia, I opened up the muscle belly and a very large amount of purulent material was in a large gluteal abscess. At this time when I was debriding it, it did break down through the muscle belly fibers into the previous total hip replacement. The components showed no signs of film or biofilm at all, at least gross visually. They were well intact and well seated. At this time, I did a very large debridement of all synovium and soft tissue in that region making sure to protect the sciatic nerve. The debridement was of greater than 30 square cm of the entire hip region as well as gluteal region using a curette and rongeur for the entire region. At this time, 9 L of normal saline with cysto tubing were irrigated through the hip while the debridement was being done. After this was completed, it was decided to do a head and liner exchange, so the MDM components were then exchanged but we kept the acetabular and femoral components in place. These were then relocated. The patient's hip was stable throughout the range of motion. Just this previous stimulant antibiotic beads 3 batches were then placed in the hip and the gluteal abscess region up in the gluteal muscle fibers and #2 barbed suture was used for closure of the IT band and gluteal fascia and 2-0 barbed suture was used for closure of the skin and Prineo was used for the cuticular layer. At this time, the patient had an incisional VAC placed and was sent to the PACU in stable condition, and we will await sensitivity and specificity. MMODAL /[id number]
--- NOTE | 2019-02-18 07:09 | PCM.SURGPN ---
- General Info Date of Service: 02/17/19 POD#: 3 Functional Status: Reports: Pain Controlled, Tolerating Diet, Ambulating, Urinating, Incentive Spirometry, Other (The pt feels prepared for discharge to home.) - Patient Data Vitals - Most Recent: Last Vital Signs Temp 97.7 F 02/17/19 12:00 Pulse 95 02/17/19 12:00 Resp 18 02/17/19 12:00 BP 128/74 02/17/19 12:00 Pulse Ox 94 L 02/17/19 12:00 Weight - Most Recent: 198 lb Lab Results Last 24 Hrs: Laboratory Results - last 24 hr 02/17/19 02/17/19 Range/Units 08:10 08:10 WBC 12.90 H (4.23-9.07) K/mm3 RBC 3.93 L (4.63-6.08) M/mm3 Hgb 11.4 L (13.7-17.5) gm/L Hct 34.2 L (40.1-51.0) % MCV 87.0 (79.0-92.2) fl MCH 29.0 (25.7-32.2) pg MCHC 33.3 (32.2-35.5) g/dl RDW Std Deviation 48.1 H (35.1-43.9) fL Plt Count 433 H D (163-337) K/mm3 MPV 9.3 L (9.4-12.3) fl Neut % (Auto) 61.6 (34.0-67.9) % Lymph % (Auto) 15.7 L (21.8-53.1) % [place] % (Auto) 11.2 (5.3-12.2) % Eos % (Auto) 2.8 (0.8-7.0) Baso % (Auto) 0.2 (0.1-1.2) % Neut # (Auto) 7.95 H (1.78-5.38) K/mm3 Lymph # (Auto) 2.02 (1.32-3.57) K/mm3 [place] # (Auto) 1.44 H (0.30-0.82) K/mm3 Eos # (Auto) 0.36 (0.04-0.54) K/mm3 Baso # (Auto) 0.03 (0.01-0.08) K/mm3 Manual Slide Review Abnormal smear Sodium 139 (136-145) mEq/L Potassium 3.9 (3.5-5.1) mEq/L Chloride 106 (98-107) mEq/L Carbon Dioxide 26 (21-32) mEq/L Anion Gap 10.9 (5-15) BUN 11 (7-18) mg/dL Creatinine 0.8 (0.7-1.3) mg/dL Est Cr Clr Drug Dosing 95.43 mL/min Estimated GFR (MDRD) > 60 (>60) mL/min BUN/Creatinine Ratio 13.8 L (14-18) Glucose 107 (80-115) mg/dL Calcium 8.9 (8.5-10.1) mg/dL Magnesium 2.2 (1.8-2.4) mg/dl Total Bilirubin 0.4 (0.2-1.0) mg/dL AST 23 (15-37) U/L ALT 97 H (16-63) U/L Alkaline Phosphatase 118 H (46-116) U/L C-Reactive Protein 7.3 H* (<1.0) mg/dL Total Protein 6.7 (6.4-8.2) g/dl Albumin 2.5 L (3.4-5.0) g/dl Globulin 4.2 gm/dL Albumin/Globulin Ratio 0.6 L (1-2) Jorge A Results Last 24 Hrs: Microbiology 02/11/19 04:18 Aerobic Blood Culture - Final Blood - Venous NO GROWTH AFTER 7 DAYS Anaerobic Blood Culture - Final NO GROWTH AFTER 7 DAYS 02/11/19 04:05 Aerobic Blood Culture - Final Blood - Venous - Lab Draw NO GROWTH AFTER 7 DAYS Anaerobic Blood Culture - Final NO GROWTH AFTER 7 DAYS 02/14/19 15:50 Gram Stain - Final Hip, Left Anaerobic Culture - Final Beta Streptococcus Group G 02/14/19 15:51 Gram Stain - Final Hip, Left Anaerobic Culture - Final Beta Streptococcus Group G 02/14/19 15:52 Gram Stain - Final Hip, Left Anaerobic Culture - Final Beta Streptococcus Group G Med Orders - Current: Current Medications Discontinued Medications Acetaminophen (Tylenol) 975 mg PO ONETIME ONE Stop: 02/11/19 04:02 Last Admin: 02/11/19 04:51 Dose: 975 mg Acetaminophen (Tylenol) 650 mg PO Q4H PRN PRN Reason: Pain (Mild 1-3)/fever Last Admin: 02/12/19 17:17 Dose: 650 mg Albuterol (Proventil Neb Soln) 2.5 mg NEB ONETIME ONE Stop: 02/14/19 15:36 Last Admin: 02/14/19 17:28 Dose: 2.5 mg Albuterol/Ipratropium (Duoneb 3.0-0.5 Mg/3 Ml) 3 ml NEB Q4H PRN PRN Reason: Shortness Of Breath/wheezing Bisacodyl (Dulcolax) 5 mg PO DAILY PRN PRN Reason: Constipation Dexamethasone (Dexamethasone) Confirm Administered Dose 20 mg .ROUTE .STK-MED ONE Stop: 02/11/19 12:35 Dexamethasone (Dexamethasone) Confirm Administered Dose 20 mg .ROUTE .STK-MED ONE Stop: 02/14/19 14:37 Diphenhydramine HCl (Benadryl) Confirm Administered Dose 50 mg .ROUTE .STK-MED ONE Stop: 02/14/19 14:37 Docusate Sodium (Colace) 100 mg PO BID PRN PRN Reason: Constipation Last Admin: 02/14/19 20:51 Dose: 100 mg Ephedrine Sulfate (Ephedrine Sulfate) 5 mg IVPUSH ASDIRECTED PRN PRN Reason: Hypotension Fentanyl (Sublimaze) Confirm Administered Dose 250 mcg .ROUTE .STK-MED ONE Stop: 02/11/19 12:35 Fentanyl (Sublimaze) Confirm Administered Dose 250 mcg .ROUTE .STK-MED ONE Stop: 02/14/19 14:38 Fentanyl (Sublimaze) 50 mcg IVPUSH Q5M PRN PRN Reason: Pain Gabapentin (Neurontin) 300 mg PO DAILY [facility] Last Admin: 02/17/19 08:28 Dose: 300 mg Glycopyrrolate () Confirm Administered Dose 1 mg .ROUTE .STK-MED ONE Stop: 02/11/19 13:58 Guaifenesin/Phenylephrine HCl (Robitussin Dm) 10 ml PO Q4H PRN PRN Reason: Cough Last Admin: 02/12/19 17:18 Dose: 10 ml Haloperidol Lactate (Haldol) 1 mg IVPUSH ONETIME ONE Stop: 02/14/19 15:36 Last Admin: 02/14/19 18:48 Dose: Not Given Heparin Sodium (Porcine) (Heparin Sodium) 5,000 units SUBCUT Q8H [facility] Last Admin: 02/17/19 12:39 Dose: 5,000 units Hydralazine HCl (Apresoline) 20 mg IVPUSH Q4H PRN PRN Reason: Hypertension Hydromorphone HCl (Dilaudid) 1 mg IVPUSH ONETIME ONE Stop: 02/11/19 03:55 Last Admin: 02/11/19 04:09 Dose: 1 mg Hydromorphone HCl (Dilaudid) 0.5 mg IVPUSH Q2H PRN PRN Reason: Pain (severe 7-10) Last Admin: 02/14/19 13:33 Dose: 0.5 mg Hydromorphone HCl (Dilaudid) 0.5 mg IVPUSH Q15M PRN PRN Reason: Pain (severe 7-10) Hydromorphone HCl (Dilaudid) Confirm Administered Dose 0.5 mg .ROUTE .STK-MED ONE Stop: 02/14/19 16:34 Dextrose/Sodium Chloride (Dextrose 5%-Normal Saline) 1,000 mls @ 125 mls[facility] Last Admin: 02/11/19 04:09 Dose: 125 mls/hr Linezolid 600 mg/ Premix 300 mls @ 300 mls/hr IV ONETIME ONE Stop: 02/11/19 05:26 Last Admin: 02/11/19 04:51 Dose: 300 mls/hr Vancomycin HCl 2 gm/ Sodium (Chloride) 500 mls @ 250 mls/hr IV ONETIME ONE Stop: 02/11/19 05:20 Last Admin: 02/11/19 06:07 Dose: 250 mls/hr Lactated Ringer's (Ringers, Lactated) 1,000 mls @ 125 mls/hr IV ASDIRECTED [facility] Last Admin: 02/12/19 11:41 Dose: 125 mls/hr Promethazine HCl 6.25 mg/ (Sodium Chloride) 50.25 mls @ 100 mls/hr IV Q6H PRN PRN Reason: Nausea/Vomiting Piperacillin Sod/Tazobactam (Sod 4.5 gm/ Sodium Chloride) 100 mls @ 200 mls/hr IV ONETIME ONE Stop: 02/11/19 09:29 Last Admin: 02/11/19 09:50 Dose: 200 mls/hr Piperacillin Sod/Tazobactam (Sod 4.5 gm/ Sodium Chloride) 100 mls @ 25 mls/hr IV Q8H [facility] Last Admin: 02/17/19 08:28 Dose: 25 mls/hr Vancomycin HCl 500 mg/ Sodium (Chloride) 250 mls @ 166.667 mls/hr IV Q12H [facility] Vancomycin HCl 1 gm/Vancomycin HCl 500 mg/ Sodium Chloride 500 mls @ 250 mls/ hr IV Q12H [facility] Last Admin: 02/12/19 18:09 Dose: Not Given Lactated Ringer's (Ringers, Lactated) Confirm Administered Dose 0 mls @ as directed .ROUTE .STK-MED ONE Stop: 02/11/19 12:35 Lidocaine HCl (Xylocaine-Mpf 1%) Confirm Administered Dose 2 mls @ as directed .ROUTE .STK-MED ONE Stop: 02/11/19 12:38 Magnesium Sulfate 4 gm/ Premix 50 mls @ 12.5 mls/hr IV ONETIME ONE Stop: 02/11/19 23:44 Last Admin: 02/11/19 20:23 Dose: 12.5 mls/hr Levofloxacin/Dextrose 750 mg/ (Premix) 150 mls @ 100 mls/hr IV Q24H [facility] Last Admin: 02/11/19 20:48 Dose: Not Given Sodium Chloride (Normal Saline) 500 mls @ 500 mls/hr IV .BOLUS ONE Stop: 02/12/19 18:56 Last Admin: 02/12/19 18:16 Dose: 500 mls/hr Vancomycin HCl 1 gm/Vancomycin HCl 500 mg/ Sodium Chloride 500 mls @ 250 mls/ hr IV Q12H [facility] Vancomycin HCl 1 gm/Vancomycin HCl 500 mg/ Sodium Chloride 500 mls @ 250 mls/ hr IV Q8H [facility] Last Admin: 02/16/19 04:20 Dose: 250 mls/hr Sodium Chloride (Normal Saline) 1,000 mls @ 100 mls/hr IV ASDIRECTED [facility] Last Admin: 02/13/19 14:23 Dose: 100 mls/hr Sodium Chloride (Normal Saline) 100 mls @ 75 mls/hr IV ASDIRECTED [facility] Last Admin: 02/13/19 15:01 Dose: 75 mls/hr Lidocaine HCl (Xylocaine-Mpf 1%) Confirm Administered Dose 6 mls @ as directed .ROUTE .[facility]-MED ONE Stop: 02/14/19 14:37 Lactated Ringer's (Ringers, Lactated) Confirm Administered Dose 2,000 mls @ as directed .ROUTE .[facility]-MED ONE Stop: 02/14/19 14:37 Sodium Chloride (Normal Saline) 25 mls @ 25 mls/hr IV ASDIRECTED [facility] Phenylephrine HCl 1 mg/ Sodium (Chloride) 10.1 mls @ 1 mls/sec IV TITRATE [facility]; Protocol Sodium Chloride (Normal Saline) 1,000 mls @ 25 mls/hr IV ASDIRECTED [facility] Stop: 02/18/19 18:47 Last Admin: 02/14/19 19:49 Dose: 25 mls/hr Magnesium Sulfate 2 gm/ Premix 50 mls @ 25 mls/hr IV ONETIME ONE Stop: 02/16/19 13:32 Last Admin: 02/16/19 11:59 Dose: 25 mls/hr Iodine (Iodine 2% Mild Tincture) Confirm Administered Dose 30 ml .ROUTE .[facility]- MED ONE Stop: 02/14/19 16:22 Last Admin: 02/14/19 16:24 Dose: 18 ml Iopamidol (Isovue-370 (76%)) 100 ml IVPUSH ONETIME ONE Stop: 02/13/19 14:29 Last Admin: 02/13/19 15:00 Dose: 100 ml Iopamidol (Isovue-300 (61%)) 100 ml IVPUSH ONETIME ONE Stop: 02/14/19 12:50 Last Admin: 02/14/19 13:11 Dose: 100 ml Lorazepam (Ativan) 0.5 mg IV Q6H PRN PRN Reason: Anxiety Lorazepam (Ativan) 1 mg PO NOW STA Stop: 02/12/19 10:00 Last Admin: 02/12/19 10:16 Dose: 1 mg Metoclopramide HCl (Reglan) 10 mg IVPUSH ONETIME ONE Stop: 02/11/19 03:55 Last Admin: 02/11/19 04:07 Dose: 10 mg Metoprolol Tartrate (Lopressor) 5 mg IVPUSH Q4H PRN PRN Reason: Tachycardia Midazolam HCl (Versed 1 Mg/Ml) Confirm Administered Dose 2 mg .ROUTE .STK-MED ONE Stop: 02/11/19 12:35 Midazolam HCl (Versed 1 Mg/Ml) Confirm Administered Dose 2 mg .ROUTE .STK-MED ONE Stop: 02/14/19 14:38 Miscellaneous Information (Remove Patch) 0 ea TRDERM ONETIME ONE Stop: 02/14/19 13:31 Last Admin: 02/14/19 13:35 Dose: Not Given Miscellaneous Information (Remove Patch) 0 ea TRDERM ONETIME ONE Stop: 02/17/19 14:31 Last Admin: 02/17/19 14:34 Dose: Not Given Multivitamins (Thera) 1 each PO DAILY [facility] Last Admin: 02/17/19 08:28 Dose: 1 each Neostigmine Methylsulfate (Neostigmine) Confirm Administered Dose 5 mg .ROUTE .STK-MED ONE Stop: 02/11/19 13:58 Nystatin (Nystop) 1 gm TOP TID [facility] Last Admin: 02/17/19 08:33 Dose: 1 gm Ondansetron HCl (Zofran) 4 mg IV Q6H PRN PRN Reason: Nausea/Vomiting Last Admin: 02/13/19 20:55 Dose: 4 mg Ondansetron HCl (Zofran) Confirm Administered Dose 4 mg .ROUTE .STK-MED ONE Stop: 02/11/19 12:35 Ondansetron HCl (Zofran) Confirm Administered Dose 4 mg .ROUTE .STK-MED ONE Stop: 02/14/19 14:37 Ondansetron HCl (Zofran) 4 mg IVPUSH ONETIME PRN PRN Reason: Nausea/Vomiting Oxycodone HCl (Oxycodone) 5 mg PO Q4H PRN PRN Reason: Pain (moderate 4-6) Last Admin: 02/16/19 18:25 Dose: 5 mg Pantoprazole Sodium (Protonix) 40 mg PO Q12HR [facility] Last Admin: 02/17/19 08:28 Dose: 40 mg Phenylephrine HCl (Phenylephrine In Ns 100 Mcg/Ml) Confirm Administered Dose 1 mg .ROUTE .STK-MED ONE Stop: 02/14/19 15:37 Polyethylene Glycol (Miralax) 17 gm PO DAILY PRN PRN Reason: Constipation Potassium Chloride (Klor-Con M20) 60 meq PO ONETIME ONE Stop: 02/11/19 19:45 Last Admin: 02/11/19 20:21 Dose: 60 meq Potassium Chloride (Klor-Con M20) 40 meq PO ONETIME ONE Stop: 02/16/19 11:34 Last Admin: 02/16/19 12:03 Dose: 40 meq Promethazine HCl (Phenergan) 25 mg PO Q8H PRN PRN Reason: Nausea/Vomiting Last Admin: 02/13/19 20:28 Dose: 25 mg Propofol (Diprivan 20 Ml) Confirm Administered Dose 200 mg .ROUTE .STK-MED ONE Stop: 02/11/19 12:35 Propofol (Diprivan 20 Ml) Confirm Administered Dose 400 mg .ROUTE .STK-MED ONE Stop: 02/11/19 13:30 Propofol (Diprivan 20 Ml) Confirm Administered Dose 200 mg .ROUTE .STK-MED ONE Stop: 02/14/19 14:37 Rocuronium [place] (Zemuron) Confirm Administered Dose 50 mg .ROUTE .STK-MED ONE Stop: 02/11/19 12:35 Rocuronium [place] (Zemuron) Confirm Administered Dose 50 mg .ROUTE .STK-MED ONE Stop: 02/14/19 14:37 Scopolamine (Transderm-Scop) 1.5 mg TOP ONETIME ONE Stop: 02/11/19 10:20 Last Admin: 02/11/19 10:35 Dose: 1.5 mg Scopolamine (Transderm-Scop) 1.5 mg TRDERM ONETIME [facility] Last Admin: 02/11/19 13:36 Dose: 1.5 mg Scopolamine (Transderm-Scop) 1.5 mg TRDERM ONETIME ONE Stop: 02/14/19 14:31 Last Admin: 02/14/19 14:40 Dose: 1.5 mg Senna/Docusate Sodium (Senna Plus) 1 tab PO BID PRN PRN Reason: Constipation Sodium Chloride (Saline Flush) 10 ml FLUSH ASDIRECTED PRN PRN Reason: Keep Vein Open Last Admin: 02/14/19 13:11 Dose: 10 ml Succinylcholine Chloride (Succinylcholine In Ns Pf) Confirm Administered Dose 100 mg .ROUTE .STK-MED ONE Stop: 02/14/19 14:37 Temazepam (Restoril) 15 mg PO BEDTIME PRN PRN Reason: Sleep Valacyclovir HCl (Valtrex) 1,000 mg PO TID [facility] Last Admin: 02/17/19 08:28 Dose: 1,000 mg Vancomycin HCl (Pharmacy To Dose - Vancomycin) 1 dose .XX ASDIRECTED [facility] Vancomycin HCl (Pharmacy To Dose - Vancomycin) 0 dose .XX ASDIRECTED PRN PRN Reason: RX TO DOSE VANCOMYCIN Vancomycin HCl (Vancomycin) Confirm Administered Dose 1 gm .ROUTE .STK-MED ONE Stop: 02/14/19 16:00 Last Admin: 02/14/19 16:15 Dose: 1 gm Zolpidem Tartrate (Ambien) 5 mg PO BEDTIME [facility] Last Admin: 02/16/19 20:34 Dose: 5 mg - Exam Wound/Incisions: Dressing Dry and Intact, Other (JOHN in place at left hip.) General: Alert, Cooperative, No Acute Distress Lungs: Normal Respiratory Effort Extremities: Other (Independent SLR LLE. Left thigh soft, nontender.) - Problem List Review Problem List Initiated/Reviewed/Updated: Yes - My Orders Last 24 Hours: Active Orders 24 hr Category Date Time Status Cooling Warming Measures [RC] Q6HR Care 02/17/19 09:00 Active Ready for Discharge [RC] PER UNIT ROUTINE Care 02/17/19 11:49 Active - Assessment Assessment (Free Text/Narrative):: POD#3 - s/p I&D of left gluteal abscess - Plan Plan (Free Text/Narrative):: 1. ASA 325mg PO BID, frequent mobility, TEDs. 2. Discharge to home today. 3. Outpatient IV antibiotic therapy via PICC with Rocephin daily. The pt was evaluated by Dr. Maurice today.
--- NOTE | 2019-02-18 14:22 | PCM.SURGPN ---
<Chelly Lo - Last Filed: 02/18/19 15:49> - General Info Date of Service: 02/14/19 - Review of Systems General: Reports: Other (The pt has had increased pain at the left hip and mobility has been more difficult.) - Patient Data Vitals - Most Recent: Last Vital Signs Temp 97.7 F 02/17/19 12:00 Pulse 95 02/17/19 12:00 Resp 18 02/17/19 12:00 BP 128/74 02/17/19 12:00 Pulse Ox 94 L 02/17/19 12:00 Weight - Most Recent: 89.811 kg Jorge A Results Last 24 Hrs: Microbiology 02/11/19 04:18 Aerobic Blood Culture - Final Blood - Venous NO GROWTH AFTER 7 DAYS Anaerobic Blood Culture - Final NO GROWTH AFTER 7 DAYS 02/11/19 04:05 Aerobic Blood Culture - Final Blood - Venous - Lab Draw NO GROWTH AFTER 7 DAYS Anaerobic Blood Culture - Final NO GROWTH AFTER 7 DAYS 02/14/19 15:50 Gram Stain - Final Hip, Left Anaerobic Culture - Final Beta Streptococcus Group G 02/14/19 15:51 Gram Stain - Final Hip, Left Anaerobic Culture - Final Beta Streptococcus Group G 02/14/19 15:52 Gram Stain - Final Hip, Left Anaerobic Culture - Final Beta Streptococcus Group G Med Orders - Current: Current Medications Discontinued Medications Acetaminophen (Tylenol) 975 mg PO ONETIME ONE Stop: 02/11/19 04:02 Last Admin: 02/11/19 04:51 Dose: 975 mg Acetaminophen (Tylenol) 650 mg PO Q4H PRN PRN Reason: Pain (Mild 1-3)/fever Last Admin: 02/12/19 17:17 Dose: 650 mg Albuterol (Proventil Neb Soln) 2.5 mg NEB ONETIME ONE Stop: 02/14/19 15:36 Last Admin: 02/14/19 17:28 Dose: 2.5 mg Albuterol/Ipratropium (Duoneb 3.0-0.5 Mg/3 Ml) 3 ml NEB Q4H PRN PRN Reason: Shortness Of Breath/wheezing Bisacodyl (Dulcolax) 5 mg PO DAILY PRN PRN Reason: Constipation Dexamethasone (Dexamethasone) Confirm Administered Dose 20 mg .ROUTE .STK-MED ONE Stop: 02/11/19 12:35 Dexamethasone (Dexamethasone) Confirm Administered Dose 20 mg .ROUTE .STK-MED ONE Stop: 02/14/19 14:37 Diphenhydramine HCl (Benadryl) Confirm Administered Dose 50 mg .ROUTE .STK-MED ONE Stop: 02/14/19 14:37 Docusate Sodium (Colace) 100 mg PO BID PRN PRN Reason: Constipation Last Admin: 02/14/19 20:51 Dose: 100 mg Ephedrine Sulfate (Ephedrine Sulfate) 5 mg IVPUSH ASDIRECTED PRN PRN Reason: Hypotension Fentanyl (Sublimaze) Confirm Administered Dose 250 mcg .ROUTE .STK-MED ONE Stop: 02/11/19 12:35 Fentanyl (Sublimaze) Confirm Administered Dose 250 mcg .ROUTE .STK-MED ONE Stop: 02/14/19 14:38 Fentanyl (Sublimaze) 50 mcg IVPUSH Q5M PRN PRN Reason: Pain Gabapentin (Neurontin) 300 mg PO DAILY [facility] Last Admin: 02/17/19 08:28 Dose: 300 mg Glycopyrrolate () Confirm Administered Dose 1 mg .ROUTE .STK-MED ONE Stop: 02/11/19 13:58 Guaifenesin/Phenylephrine HCl (Robitussin Dm) 10 ml PO Q4H PRN PRN Reason: Cough Last Admin: 02/12/19 17:18 Dose: 10 ml Haloperidol Lactate (Haldol) 1 mg IVPUSH ONETIME ONE Stop: 02/14/19 15:36 Last Admin: 02/14/19 18:48 Dose: Not Given Heparin Sodium (Porcine) (Heparin Sodium) 5,000 units SUBCUT Q8H [facility] Last Admin: 02/17/19 12:39 Dose: 5,000 units Hydralazine HCl (Apresoline) 20 mg IVPUSH Q4H PRN PRN Reason: Hypertension Hydromorphone HCl (Dilaudid) 1 mg IVPUSH ONETIME ONE Stop: 02/11/19 03:55 Last Admin: 02/11/19 04:09 Dose: 1 mg Hydromorphone HCl (Dilaudid) 0.5 mg IVPUSH Q2H PRN PRN Reason: Pain (severe 7-10) Last Admin: 02/14/19 13:33 Dose: 0.5 mg Hydromorphone HCl (Dilaudid) 0.5 mg IVPUSH Q15M PRN PRN Reason: Pain (severe 7-10) Hydromorphone HCl (Dilaudid) Confirm Administered Dose 0.5 mg .ROUTE .STK-MED ONE Stop: 02/14/19 16:34 Dextrose/Sodium Chloride (Dextrose 5%-Normal Saline) 1,000 mls @ 125 mls/hr IV ASDIRECTED [facility] Last Admin: 02/11/19 04:09 Dose: 125 mls/hr Linezolid 600 mg/ Premix 300 mls @ 300 mls/hr IV ONETIME ONE Stop: 02/11/19 05:26 Last Admin: 02/11/19 04:51 Dose: 300 mls/hr Vancomycin HCl 2 gm/ Sodium (Chloride) 500 mls @ 250 mls/hr IV ONETIME ONE Stop: 02/11/19 05:20 Last Admin: 02/11/19 06:07 Dose: 250 mls/hr Lactated Ringer's (Ringers, Lactated) 1,000 mls @ 125 mls/hr IV ASDIRECTED [facility] Last Admin: 02/12/19 11:41 Dose: 125 mls/hr Promethazine HCl 6.25 mg/ (Sodium Chloride) 50.25 mls @ 100 mls/hr IV Q6H PRN PRN Reason: Nausea/Vomiting Piperacillin Sod/Tazobactam (Sod 4.5 gm/ Sodium Chloride) 100 mls @ 200 mls/hr IV ONETIME ONE Stop: 02/11/19 09:29 Last Admin: 02/11/19 09:50 Dose: 200 mls/hr Piperacillin Sod/Tazobactam (Sod 4.5 gm/ Sodium Chloride) 100 mls @ 25 mls/hr IV Q8H [facility] Last Admin: 02/17/19 08:28 Dose: 25 mls/hr Vancomycin HCl 500 mg/ Sodium (Chloride) 250 mls @ 166.667 mls/hr IV Q12H [facility] Vancomycin HCl 1 gm/Vancomycin HCl 500 mg/ Sodium Chloride 500 mls @ 250 mls/ hr IV Q12H [facility] Last Admin: 02/12/19 18:09 Dose: Not Given Lactated Ringer's (Ringers, Lactated) Confirm Administered Dose 0 mls @ as directed .ROUTE .STK-MED ONE Stop: 02/11/19 12:35 Lidocaine HCl (Xylocaine-Mpf 1%) Confirm Administered Dose 2 mls @ as directed .ROUTE .[facility] ONE Stop: 02/11/19 12:38 Magnesium Sulfate 4 gm/ Premix 50 mls @ 12.5 mls/hr IV ONETIME ONE Stop: 02/11/19 23:44 Last Admin: 02/11/19 20:23 Dose: 12.5 mls/hr Levofloxacin/Dextrose 750 mg/ (Premix) 150 mls @ 100 mls/hr IV Q24H [facility] Last Admin: 02/11/19 20:48 Dose: Not Given Sodium Chloride (Normal Saline) 500 mls @ 500 mls/hr IV .BOLUS ONE Stop: 02/12/19 18:56 Last Admin: 02/12/19 18:16 Dose: 500 mls/hr Vancomycin HCl 1 gm/Vancomycin HCl 500 mg/ Sodium Chloride 500 mls @ 250 mls/ hr IV Q12H [facility] Vancomycin HCl 1 gm/Vancomycin HCl 500 mg/ Sodium Chloride 500 mls @ 250 mls/ hr IV Q8H [facility] Last Admin: 02/16/19 04:20 Dose: 250 mls/hr Sodium Chloride (Normal Saline) 1,000 mls @ 100 mls/hr IV ASDIRECTED [facility] Last Admin: 02/13/19 14:23 Dose: 100 mls/hr Sodium Chloride (Normal Saline) 100 mls @ 75 mls/hr IV ASDIRECTED [facility] Last Admin: 02/13/19 15:01 Dose: 75 mls/hr Lidocaine HCl (Xylocaine-Mpf 1%) Confirm Administered Dose 6 mls @ as directed .ROUTE .[facility] ONE Stop: 02/14/19 14:37 Lactated Ringer's (Ringers, Lactated) Confirm Administered Dose 2,000 mls @ as directed .ROUTE .[facility] ONE Stop: 02/14/19 14:37 Sodium Chloride (Normal Saline) 25 mls @ 25 mls/hr IV ASDIRECTED [facility] Phenylephrine HCl 1 mg/ Sodium (Chloride) 10.1 mls @ 1 mls/sec IV TITRATE [facility]; Protocol Sodium Chloride (Normal Saline) 1,000 mls @ 25 mls/hr IV ASDIRECTED [facility] Stop: 02/18/19 18:47 Last Admin: 02/14/19 19:49 Dose: 25 mls/hr Magnesium Sulfate 2 gm/ Premix 50 mls @ 25 mls/hr IV ONETIME ONE Stop: 02/16/19 13:32 Last Admin: 02/16/19 11:59 Dose: 25 mls/hr Iodine (Iodine 2% Mild Tincture) Confirm Administered Dose 30 ml .ROUTE .STK- MED ONE Stop: 02/14/19 16:22 Last Admin: 02/14/19 16:24 Dose: 18 ml Iopamidol (Isovue-370 (76%)) 100 ml IVPUSH ONETIME ONE Stop: 02/13/19 14:29 Last Admin: 02/13/19 15:00 Dose: 100 ml Iopamidol (Isovue-300 (61%)) 100 ml IVPUSH ONETIME ONE Stop: 02/14/19 12:50 Last Admin: 02/14/19 13:11 Dose: 100 ml Lorazepam (Ativan) 0.5 mg IV Q6H PRN PRN Reason: Anxiety Lorazepam (Ativan) 1 mg PO NOW STA Stop: 02/12/19 10:00 Last Admin: 02/12/19 10:16 Dose: 1 mg Metoclopramide HCl (Reglan) 10 mg IVPUSH ONETIME ONE Stop: 02/11/19 03:55 Last Admin: 02/11/19 04:07 Dose: 10 mg Metoprolol Tartrate (Lopressor) 5 mg IVPUSH Q4H PRN PRN Reason: Tachycardia Midazolam HCl (Versed 1 Mg/Ml) Confirm Administered Dose 2 mg .ROUTE .STK-MED ONE Stop: 02/11/19 12:35 Midazolam HCl (Versed 1 Mg/Ml) Confirm Administered Dose 2 mg .ROUTE .STK-MED ONE Stop: 02/14/19 14:38 Miscellaneous Information (Remove Patch) 0 ea TRDERM ONETIME ONE Stop: 02/14/19 13:31 Last Admin: 02/14/19 13:35 Dose: Not Given Miscellaneous Information (Remove Patch) 0 ea TRDERM ONETIME ONE Stop: 02/17/19 14:31 Last Admin: 02/17/19 14:34 Dose: Not Given Multivitamins (Thera) 1 each PO DAILY [facility] Last Admin: 02/17/19 08:28 Dose: 1 each Neostigmine Methylsulfate (Neostigmine) Confirm Administered Dose 5 mg .ROUTE .STK-MED ONE Stop: 02/11/19 13:58 Nystatin (Nystop) 1 gm TOP TID [facility] Last Admin: 02/17/19 08:33 Dose: 1 gm Ondansetron HCl (Zofran) 4 mg IV Q6H PRN PRN Reason: Nausea/Vomiting Last Admin: 02/13/19 20:55 Dose: 4 mg Ondansetron HCl (Zofran) Confirm Administered Dose 4 mg .ROUTE .STK-MED ONE Stop: 02/11/19 12:35 Ondansetron HCl (Zofran) Confirm Administered Dose 4 mg .ROUTE .STK-MED ONE Stop: 02/14/19 14:37 Ondansetron HCl (Zofran) 4 mg IVPUSH ONETIME PRN PRN Reason: Nausea/Vomiting Oxycodone HCl (Oxycodone) 5 mg PO Q4H PRN PRN Reason: Pain (moderate 4-6) Last Admin: 02/16/19 18:25 Dose: 5 mg Pantoprazole Sodium (Protonix) 40 mg PO Q12HR [facility] Last Admin: 02/17/19 08:28 Dose: 40 mg Phenylephrine HCl (Phenylephrine In Ns 100 Mcg/Ml) Confirm Administered Dose 1 mg .ROUTE .STK-MED ONE Stop: 02/14/19 15:37 Polyethylene Glycol (Miralax) 17 gm PO DAILY PRN PRN Reason: Constipation Potassium Chloride (Klor-Con M20) 60 meq PO ONETIME ONE Stop: 02/11/19 19:45 Last Admin: 02/11/19 20:21 Dose: 60 meq Potassium Chloride (Klor-Con M20) 40 meq PO ONETIME ONE Stop: 02/16/19 11:34 Last Admin: 02/16/19 12:03 Dose: 40 meq Promethazine HCl (Phenergan) 25 mg PO Q8H PRN PRN Reason: Nausea/Vomiting Last Admin: 02/13/19 20:28 Dose: 25 mg Propofol (Diprivan 20 Ml) Confirm Administered Dose 200 mg .ROUTE .STK-MED ONE Stop: 02/11/19 12:35 Propofol (Diprivan 20 Ml) Confirm Administered Dose 400 mg .ROUTE .STK-MED ONE Stop: 02/11/19 13:30 Propofol (Diprivan 20 Ml) Confirm Administered Dose 200 mg .ROUTE .STK-MED ONE Stop: 02/14/19 14:37 Rocuronium Rutherford (Zemuron) Confirm Administered Dose 50 mg .ROUTE .STK-MED ONE Stop: 02/11/19 12:35 Rocuronium [place]uther[place] (Zemuron) Confirm Administered Dose 50 mg .ROUTE .STK-MED ONE Stop: 02/14/19 14:37 Scopolamine (Transderm-Scop) 1.5 mg TOP ONETIME ONE Stop: 02/11/19 10:20 Last Admin: 02/11/19 10:35 Dose: 1.5 mg Scopolamine (Transderm-Scop) 1.5 mg TRDERM ONETIME [facility] Last Admin: 02/11/19 13:36 Dose: 1.5 mg Scopolamine (Transderm-Scop) 1.5 mg TRDERM ONETIME ONE Stop: 02/14/19 14:31 Last Admin: 02/14/19 14:40 Dose: 1.5 mg Senna/Docusate Sodium (Senna Plus) 1 tab PO BID PRN PRN Reason: Constipation Sodium Chloride (Saline Flush) 10 ml FLUSH ASDIRECTED PRN PRN Reason: Keep Vein Open Last Admin: 02/14/19 13:11 Dose: 10 ml Succinylcholine Chloride (Succinylcholine In Ns Pf) Confirm Administered Dose 100 mg .ROUTE .STK-MED ONE Stop: 02/14/19 14:37 Temazepam (Restoril) 15 mg PO BEDTIME PRN PRN Reason: Sleep Valacyclovir HCl (Valtrex) 1,000 mg PO TID [facility] Last Admin: 02/17/19 08:28 Dose: 1,000 mg Vancomycin HCl (Pharmacy To Dose - Vancomycin) 1 dose .XX ASDIRECTED [facility] Vancomycin HCl (Pharmacy To Dose - Vancomycin) 0 dose .XX ASDIRECTED PRN PRN Reason: RX TO DOSE VANCOMYCIN Vancomycin HCl (Vancomycin) Confirm Administered Dose 1 gm .ROUTE .STK-MED ONE Stop: 02/14/19 16:00 Last Admin: 02/14/19 16:15 Dose: 1 gm Zolpidem Tartrate (Ambien) 5 mg PO BEDTIME [facility] Last Admin: 02/16/19 20:34 Dose: 5 mg - Exam Extremities: Other (Pain with left hip motion today. Tenderness about left hip posteriorly.) Skin: Other (Erythematous patches at left posterior hip. Tenderness about that area noted. Left thigh nontender anteriorly. ) - Problem List Review Problem List Initiated/Reviewed/Updated: Yes - Assessment Assessment (Free Text/Narrative):: Left posterior hip pain - Plan Plan (Free Text/Narrative):: Due to pt's increased discomfort about left posterior hip, decision was made to obtain repeat CT of the left hip with contrast to further evaluate for left gluteal abscess. CT scan completed and abscess noted. Discussed with pt and and decision made for I&D left gluteal abscess today. The pt will remain in Hospital greater than 96 hours for procedure today and continued post-operative monitoring, IV antibiotic therapy, physical and occupational therapy. <Chaitanya Maurice - Last Filed: 02/19/19 06:37> - Patient Data Vitals - Most Recent: Last Vital Signs Temp 36.5 C 02/17/19 12:00 Pulse 95 02/17/19 12:00 Resp 18 02/17/19 12:00 BP 128/74 02/17/19 12:00 Pulse Ox 94 L 02/17/19 12:00 Jorge A Results Last 24 Hrs: Microbiology 02/11/19 04:18 Aerobic Blood Culture - Final Blood - Venous NO GROWTH AFTER 7 DAYS Anaerobic Blood Culture - Final NO GROWTH AFTER 7 DAYS 02/11/19 04:05 Aerobic Blood Culture - Final Blood - Venous - Lab Draw NO GROWTH AFTER 7 DAYS Anaerobic Blood Culture - Final NO GROWTH AFTER 7 DAYS Med Orders - Current: Current Medications Discontinued Medications Acetaminophen (Tylenol) 975 mg PO ONETIME ONE Stop: 02/11/19 04:02 Last Admin: 02/11/19 04:51 Dose: 975 mg Acetaminophen (Tylenol) 650 mg PO Q4H PRN PRN Reason: Pain (Mild 1-3)/fever Last Admin: 02/12/19 17:17 Dose: 650 mg Albuterol (Proventil Neb Soln) 2.5 mg NEB ONETIME ONE Stop: 02/14/19 15:36 Last Admin: 02/14/19 17:28 Dose: 2.5 mg Albuterol/Ipratropium (Duoneb 3.0-0.5 Mg/3 Ml) 3 ml NEB Q4H PRN PRN Reason: Shortness Of Breath/wheezing Bisacodyl (Dulcolax) 5 mg PO DAILY PRN PRN Reason: Constipation Dexamethasone (Dexamethasone) Confirm Administered Dose 20 mg .ROUTE .STK-MED ONE Stop: 02/11/19 12:35 Dexamethasone (Dexamethasone) Confirm Administered Dose 20 mg .ROUTE .STK-MED ONE Stop: 02/14/19 14:37 Diphenhydramine HCl (Benadryl) Confirm Administered Dose 50 mg .ROUTE .STK-MED ONE Stop: 02/14/19 14:37 Docusate Sodium (Colace) 100 mg PO BID PRN PRN Reason: Constipation Last Admin: 02/14/19 20:51 Dose: 100 mg Ephedrine Sulfate (Ephedrine Sulfate) 5 mg IVPUSH ASDIRECTED PRN PRN Reason: Hypotension Fentanyl (Sublimaze) Confirm Administered Dose 250 mcg .ROUTE .STK-MED ONE Stop: 02/11/19 12:35 Fentanyl (Sublimaze) Confirm Administered Dose 250 mcg .ROUTE .STK-MED ONE Stop: 02/14/19 14:38 Fentanyl (Sublimaze) 50 mcg IVPUSH Q5M PRN PRN Reason: Pain Gabapentin (Neurontin) 300 mg PO DAILY [facility] Last Admin: 02/17/19 08:28 Dose: 300 mg Glycopyrrolate () Confirm Administered Dose 1 mg .ROUTE .STK-MED ONE Stop: 02/11/19 13:58 Guaifenesin/Phenylephrine HCl (Robitussin Dm) 10 ml PO Q4H PRN PRN Reason: Cough Last Admin: 02/12/19 17:18 Dose: 10 ml Haloperidol Lactate (Haldol) 1 mg IVPUSH ONETIME ONE Stop: 02/14/19 15:36 Last Admin: 02/14/19 18:48 Dose: Not Given Heparin Sodium (Porcine) (Heparin Sodium) 5,000 units SUBCUT Q8H [facility] Last Admin: 02/17/19 12:39 Dose: 5,000 units Hydralazine HCl (Apresoline) 20 mg IVPUSH Q4H PRN PRN Reason: Hypertension Hydromorphone HCl (Dilaudid) 1 mg IVPUSH ONETIME ONE Stop: 02/11/19 03:55 Last Admin: 02/11/19 04:09 Dose: 1 mg Hydromorphone HCl (Dilaudid) 0.5 mg IVPUSH Q2H PRN PRN Reason: Pain (severe 7-10) Last Admin: 02/14/19 13:33 Dose: 0.5 mg Hydromorphone HCl (Dilaudid) 0.5 mg IVPUSH Q15M PRN PRN Reason: Pain (severe 7-10) Hydromorphone HCl (Dilaudid) Confirm Administered Dose 0.5 mg .ROUTE .STK-MED ONE Stop: 02/14/19 16:34 Dextrose/Sodium Chloride (Dextrose 5%-Normal Saline) 1,000 mls @ 125 mls/hr IV ASDIRECTED [facility] Last Admin: 02/11/19 04:09 Dose: 125 mls/hr Linezolid 600 mg/ Premix 300 mls @ 300 mls/hr IV ONETIME ONE Stop: 02/11/19 05:26 Last Admin: 02/11/19 04:51 Dose: 300 mls/hr Vancomycin HCl 2 gm/ Sodium (Chloride) 500 mls @ 250 mls/hr IV ONETIME ONE Stop: 02/11/19 05:20 Last Admin: 02/11/19 06:07 Dose: 250 mls/hr Lactated Ringer's (Ringers, Lactated) 1,000 mls @ 125 mls/hr IV ASDIRECTED [facility] Last Admin: 02/12/19 11:41 Dose: 125 mls/hr Promethazine HCl 6.25 mg/ (Sodium Chloride) 50.25 mls @ 100 mls/hr IV Q6H PRN PRN Reason: Nausea/Vomiting Piperacillin Sod/Tazobactam (Sod 4.5 gm/ Sodium Chloride) 100 mls @ 200 mls/hr IV ONETIME ONE Stop: 02/11/19 09:29 Last Admin: 02/11/19 09:50 Dose: 200 mls/hr Piperacillin Sod/Tazobactam (Sod 4.5 gm/ Sodium Chloride) 100 mls @ 25 mls/hr IV Q8H [facility] Last Admin: 02/17/19 08:28 Dose: 25 mls/hr Vancomycin HCl 500 mg/ Sodium (Chloride) 250 mls @ 166.667 mls/hr IV Q12H [facility] Vancomycin HCl 1 gm/Vancomycin HCl 500 mg/ Sodium Chloride 500 mls @ 250 mls/ hr IV Q12H [facility] Last Admin: 02/12/19 18:09 Dose: Not Given Lactated Ringer's (Ringers, Lactated) Confirm Administered Dose 0 mls @ as directed .ROUTE .[facility] ONE Stop: 02/11/19 12:35 Lidocaine HCl (Xylocaine-Mpf 1%) Confirm Administered Dose 2 mls @ as directed .ROUTE .[facility] ONE Stop: 02/11/19 12:38 Magnesium Sulfate 4 gm/ Premix 50 mls @ 12.5 mls/hr IV ONETIME ONE Stop: 02/11/19 23:44 Last Admin: 02/11/19 20:23 Dose: 12.5 mls/hr Levofloxacin/Dextrose 750 mg/ (Premix) 150 mls @ 100 mls/hr IV Q24H [facility] Last Admin: 02/11/19 20:48 Dose: Not Given Sodium Chloride (Normal Saline) 500 mls @ 500 mls/hr IV .BOLUS ONE Stop: 02/12/19 18:56 Last Admin: 02/12/19 18:16 Dose: 500 mls/hr Vancomycin HCl 1 gm/Vancomycin HCl 500 mg/ Sodium Chloride 500 mls @ 250 mls/ hr IV Q12H [facility] Vancomycin HCl 1 gm/Vancomycin HCl 500 mg/ Sodium Chloride 500 mls @ 250 mls/ hr IV Q8H [facility] Last Admin: 02/16/19 04:20 Dose: 250 mls/hr Sodium Chloride (Normal Saline) 1,000 mls @ 100 mls/hr IV ASDIRECTED [facility] Last Admin: 02/13/19 14:23 Dose: 100 mls/hr Sodium Chloride (Normal Saline) 100 mls @ 75 mls/hr IV ASDIRECTED [facility] Last Admin: 02/13/19 15:01 Dose: 75 mls/hr Lidocaine HCl (Xylocaine-Mpf 1%) Confirm Administered Dose 6 mls @ as directed .ROUTE .[facility] ONE Stop: 02/14/19 14:37 Lactated Ringer's (Ringers, Lactated) Confirm Administered Dose 2,000 mls @ as directed .ROUTE .[facility] ONE Stop: 02/14/19 14:37 Sodium Chloride (Normal Saline) 25 mls @ 25 mls/hr IV ASDIRECTED [facility] Phenylephrine HCl 1 mg/ Sodium (Chloride) 10.1 mls @ 1 mls/sec IV TITRATE [facility]; Protocol Sodium Chloride (Normal Saline) 1,000 mls @ 25 mls/hr IV ASDIRECTED [facility] Stop: 02/18/19 18:47 Last Admin: 02/14/19 19:49 Dose: 25 mls/hr Magnesium Sulfate 2 gm/ Premix 50 mls @ 25 mls/hr IV ONETIME ONE Stop: 02/16/19 13:32 Last Admin: 02/16/19 11:59 Dose: 25 mls/hr Iodine (Iodine 2% Mild Tincture) Confirm Administered Dose 30 ml .ROUTE .STK- MED ONE Stop: 02/14/19 16:22 Last Admin: 02/14/19 16:24 Dose: 18 ml Iopamidol (Isovue-370 (76%)) 100 ml IVPUSH ONETIME ONE Stop: 02/13/19 14:29 Last Admin: 02/13/19 15:00 Dose: 100 ml Iopamidol (Isovue-300 (61%)) 100 ml IVPUSH ONETIME ONE Stop: 02/14/19 12:50 Last Admin: 02/14/19 13:11 Dose: 100 ml Lorazepam (Ativan) 0.5 mg IV Q6H PRN PRN Reason: Anxiety Lorazepam (Ativan) 1 mg PO NOW STA Stop: 02/12/19 10:00 Last Admin: 02/12/19 10:16 Dose: 1 mg Metoclopramide HCl (Reglan) 10 mg IVPUSH ONETIME ONE Stop: 02/11/19 03:55 Last Admin: 02/11/19 04:07 Dose: 10 mg Metoprolol Tartrate (Lopressor) 5 mg IVPUSH Q4H PRN PRN Reason: Tachycardia Midazolam HCl (Versed 1 Mg/Ml) Confirm Administered Dose 2 mg .ROUTE .STK-MED ONE Stop: 02/11/19 12:35 Midazolam HCl (Versed 1 Mg/Ml) Confirm Administered Dose 2 mg .ROUTE .STK-MED ONE Stop: 02/14/19 14:38 Miscellaneous Information (Remove Patch) 0 ea TRDERM ONETIME ONE Stop: 02/14/19 13:31 Last Admin: 02/14/19 13:35 Dose: Not Given Miscellaneous Information (Remove Patch) 0 ea TRDERM ONETIME ONE Stop: 02/17/19 14:31 Last Admin: 02/17/19 14:34 Dose: Not Given Multivitamins (Thera) 1 each PO DAILY [facility] Last Admin: 02/17/19 08:28 Dose: 1 each Neostigmine Methylsulfate (Neostigmine) Confirm Administered Dose 5 mg .ROUTE .STK-MED ONE Stop: 02/11/19 13:58 Nystatin (Nystop) 1 gm TOP TID [facility] Last Admin: 02/17/19 08:33 Dose: 1 gm Ondansetron HCl (Zofran) 4 mg IV Q6H PRN PRN Reason: Nausea/Vomiting Last Admin: 02/13/19 20:55 Dose: 4 mg Ondansetron HCl (Zofran) Confirm Administered Dose 4 mg .ROUTE .STK-MED ONE Stop: 02/11/19 12:35 Ondansetron HCl (Zofran) Confirm Administered Dose 4 mg .ROUTE .STK-MED ONE Stop: 02/14/19 14:37 Ondansetron HCl (Zofran) 4 mg IVPUSH ONETIME PRN PRN Reason: Nausea/Vomiting Oxycodone HCl (Oxycodone) 5 mg PO Q4H PRN PRN Reason: Pain (moderate 4-6) Last Admin: 02/16/19 18:25 Dose: 5 mg Pantoprazole Sodium (Protonix) 40 mg PO Q12HR [facility] Last Admin: 02/17/19 08:28 Dose: 40 mg Phenylephrine HCl (Phenylephrine In Ns 100 Mcg/Ml) Confirm Administered Dose 1 mg .ROUTE .STK-MED ONE Stop: 02/14/19 15:37 Polyethylene Glycol (Miralax) 17 gm PO DAILY PRN PRN Reason: Constipation Potassium Chloride (Klor-Con M20) 60 meq PO ONETIME ONE Stop: 02/11/19 19:45 Last Admin: 02/11/19 20:21 Dose: 60 meq Potassium Chloride (Klor-Con M20) 40 meq PO ONETIME ONE Stop: 02/16/19 11:34 Last Admin: 02/16/19 12:03 Dose: 40 meq Promethazine HCl (Phenergan) 25 mg PO Q8H PRN PRN Reason: Nausea/Vomiting Last Admin: 02/13/19 20:28 Dose: 25 mg Propofol (Diprivan 20 Ml) Confirm Administered Dose 200 mg .ROUTE .STK-MED ONE Stop: 02/11/19 12:35 Propofol (Diprivan 20 Ml) Confirm Administered Dose 400 mg .ROUTE .[facility] ONE Stop: 02/11/19 13:30 Propofol (Diprivan 20 Ml) Confirm Administered Dose 200 mg .ROUTE .[facility] ONE Stop: 02/14/19 14:37 Rocuronium Rutherford (Zemuron) Confirm Administered Dose 50 mg .ROUTE .[facility] ONE Stop: 02/11/19 12:35 Rocuronium [place]uther[place] (Zemuron) Confirm Administered Dose 50 mg .ROUTE .[facility] ONE Stop: 02/14/19 14:37 Scopolamine (Transderm-Scop) 1.5 mg TOP ONETIME ONE Stop: 02/11/19 10:20 Last Admin: 02/11/19 10:35 Dose: 1.5 mg Scopolamine (Transderm-Scop) 1.5 mg TRDERM ONETIME [facility] Last Admin: 02/11/19 13:36 Dose: 1.5 mg Scopolamine (Transderm-Scop) 1.5 mg TRDERM ONETIME ONE Stop: 02/14/19 14:31 Last Admin: 02/14/19 14:40 Dose: 1.5 mg Senna/Docusate Sodium (Senna Plus) 1 tab PO BID PRN PRN Reason: Constipation Sodium Chloride (Saline Flush) 10 ml FLUSH ASDIRECTED PRN PRN Reason: Keep Vein Open Last Admin: 02/14/19 13:11 Dose: 10 ml Succinylcholine Chloride (Succinylcholine In Ns Pf) Confirm Administered Dose 100 mg .ROUTE .[facility] Stop: 02/14/19 14:37 Temazepam (Restoril) 15 mg PO BEDTIME PRN PRN Reason: Sleep Valacyclovir HCl (Valtrex) 1,000 mg PO TID [facility] Last Admin: 02/17/19 08:28 Dose: 1,000 mg Vancomycin HCl (Pharmacy To Dose - Vancomycin) 1 dose .XX ASDIRECTED [facility] Vancomycin HCl (Pharmacy To Dose - Vancomycin) 0 dose .XX ASDIRECTED PRN PRN Reason: RX TO DOSE VANCOMYCIN Vancomycin HCl (Vancomycin) Confirm Administered Dose 1 gm .ROUTE .[facility] ONE Stop: 02/14/19 16:00 Last Admin: 02/14/19 16:15 Dose: 1 gm Zolpidem Tartrate (Ambien) 5 mg PO BEDTIME [facility] Last Admin: 02/16/19 20:34 Dose: 5 mg - Plan Plan (Free Text/Narrative):: Patient was examined and had increasing left hip pain in the buttocks region and his labs continued to trend upward at this time a repeat CT with and without contrast was obtained showing an abscess in the left gluteus. It was decided the patient should be taken for emergent irrigation and debridement at that time.
--- NOTE | 2019-02-22 12:16 | PCM.DCSUM1 ---
Discharge Summary - Hospital Course Brief History: Lidia is a 69 yo male who was evaluated by the ED for left hip pain s/p KATHIE completed by Dr. Maurice on 01-01-2019 due to hip fracture. During Hospital admission, the pt was noted to have increased pain at left hip and decreased mobility. CT scan of left hip with and without contrast revealed gluteal abscess and pt underwent I&D of gluteal abscess with exchange of hip arthroplasty poly and femoral head on 02-14-2019. The pt had a PICC line placed and IV antibiotic was continued. Beta strep group G was noted with cultures. The pt was noted to improve clinically and CRP improved post-operatively. On , the pt was deemed appropriate to discharge to home with his . The pt will continue with IV antibiotic therapy with rocephin as an outpatient. - Discharge Data Discharge Date: 02/17/19 Discharge Disposition: Home, Self-Care 01 Condition: Good - Referral to Home Health Primary Care Physician: Justyna Nuno MD - Patient Summary/Data Operative Procedure(s) Performed: irrigation and debridement of left gluteal abscess with poly and head exchange Consults: Consultations 02/11/19 07:37 Consult to Case Management/Fitter Mechanic [CONS] Routine Consult to Spiritual Care [CONS] Routine 02/15/19 11:01 PT Evaluation and Treatment [CONS] Routine 02/15/19 11:02 OT Evaluation and Treatment [CONS] Routine - Patient Instructions Diet: Usual Diet as Tolerated Activity: Apply Ice, As Tolerated, Elevate Extremity, Full Weight Bearing Activity, Other: Total hip arthroplasty precautions. Driving: Do Not Drive Showering/Bathing: May Shower Wound/Incision Care: Keep Operative Site/Wound Site Clean and Dry, Do NOT Change Dressing Notify Provider of: Fever, Increased Pain, Swelling and Redness, Drainage, Nausea and/or Vomiting Other/Special Instructions: Please get up and moving around EVERY HOUR while awake. This helps to prevent blood clots. Please use your walker and have help with mobility as needed. Take a short walk in your home every hour while awake. Please take 325mg Aspirin TWICE daily. The aspirin is being used for blood clot prevention and not for pain management so please do not miss a dose of the medication. You could use a medication like Zantac or Pepcid and a medication like Prilosec or Nexium to protect your stomach while you are using the aspirin. At home, please complete the exercises that you learned during the Hospital stay. Schedule for physical therapy. Use the pain medication as needed. The medication may cause drowsiness and constipation. Contact your primary care provider for instructions if you are constipated. You may use a stool softener like docusate sodium or Colace 100mg twice daily and/or a laxative like Miralax daily for constipation. Increase your water and fiber intake while you are using the pain medication. Discontinue use of the pain medication as soon as able. Please do not use other medications that may cause drowsiness (other pain medications, anxiety pills, cold medications, sleeping pills, etc) while using the prescription pain medication. Do not use alcohol while using the pain medication. You may use acetaminophen or Tylenol for pain management, however, please ensure you are not using over 4000 mg or 4 grams of acetaminophen per day from all sources. Your pain medication has 325mg of acetaminophen per tablet. At this time, please do not use ibuprofen (Motrin, Advil) or naproxen (Aleve) for pain management as you are using the aspirin. When the aspirin course is completed in 4 to 6 weeks, you could use ibuprofen or naproxen for pain management (if this is allowed by your primary care provider). Wear the MARCIA hose during the day and you may remove these at night. Elevate the limb to decrease swelling. Place ice to the area often. Place a towel between your skin and the blue pad. Use the incentive spirometer often. Take deep breaths throughout the day. Please keep the dressing in place until follow-up. Notify the Clinic if the dressing becomes saturated. Increase your protein intake while you are healing. If you have diabetes, please closely monitor your blood sugars and notify your primary care provider with abnormal values. Elevated blood sugars increases the risk of infection. PLEASE HAVE OUTPATIENT IV THERAPY as directed. Please continue with warm compresses to the right arm 4 times per day and notify the Clinic if worsening is noted or if there are no improvements noted. Call the Clinic with questions or concerns - [phone]. - Discharge Plan *PRESCRIPTION DRUG MONITORING PROGRAM REVIEWED*: Not Applicable *COPY OF PRESCRIPTION DRUG MONITORING REPORT IN PATIENT MILDRED: Not Applicable Prescriptions/Med Rec: Aspirin 325 mg PO BID #84 tablet oxyCODONE 5 mg PO Q4H PRN #40 tablet PRN Reason: Pain Home Medications: Home Meds Gabapentin [Neurontin] 600 mg PO DAILY 02/11/19 [History] Aspirin 325 mg PO BID #84 tablet 02/17/19 [Rx] oxyCODONE 5 mg PO Q4H PRN #40 tablet 02/17/19 [Rx] Patient Handouts: Steps to Quit Smoking Forms: ED Department Discharge Referrals: Justyna Nuno MD [Primary Care Provider] - Chelly Lo PA-C [Physician Accounts Payable Representative] - - Discharge Summary/Plan Comment DC Time >30 min.: No - Patient Data Vitals - Most Recent: Last Vital Signs Temp 97.7 F 02/17/19 12:00 Pulse 95 02/17/19 12:00 Resp 18 02/17/19 12:00 BP 128/74 02/17/19 12:00 Pulse Ox 94 L 02/17/19 12:00 Weight - Most Recent: 198 lb Med Orders - Current: Current Medications Discontinued Medications Acetaminophen (Tylenol) 975 mg PO ONETIME ONE Stop: 02/11/19 04:02 Last Admin: 02/11/19 04:51 Dose: 975 mg Acetaminophen (Tylenol) 650 mg PO Q4H PRN PRN Reason: Pain (Mild 1-3)/fever Last Admin: 02/12/19 17:17 Dose: 650 mg Albuterol (Proventil Neb Soln) 2.5 mg NEB ONETIME ONE Stop: 02/14/19 15:36 Last Admin: 02/14/19 17:28 Dose: 2.5 mg Albuterol/Ipratropium (Duoneb 3.0-0.5 Mg/3 Ml) 3 ml NEB Q4H PRN PRN Reason: Shortness Of Breath/wheezing Bisacodyl (Dulcolax) 5 mg PO DAILY PRN PRN Reason: Constipation Dexamethasone (Dexamethasone) Confirm Administered Dose 20 mg .ROUTE .STK-MED ONE Stop: 02/11/19 12:35 Dexamethasone (Dexamethasone) Confirm Administered Dose 20 mg .ROUTE .STK-MED ONE Stop: 02/14/19 14:37 Diphenhydramine HCl (Benadryl) Confirm Administered Dose 50 mg .ROUTE .STK-MED ONE Stop: 02/14/19 14:37 Docusate Sodium (Colace) 100 mg PO BID PRN PRN Reason: Constipation Last Admin: 02/14/19 20:51 Dose: 100 mg Ephedrine Sulfate (Ephedrine Sulfate) 5 mg IVPUSH ASDIRECTED PRN PRN Reason: Hypotension Fentanyl (Sublimaze) Confirm Administered Dose 250 mcg .ROUTE .STK-MED ONE Stop: 02/11/19 12:35 Fentanyl (Sublimaze) Confirm Administered Dose 250 mcg .ROUTE .STK-MED ONE Stop: 02/14/19 14:38 Fentanyl (Sublimaze) 50 mcg IVPUSH Q5M PRN PRN Reason: Pain Gabapentin (Neurontin) 300 mg PO DAILY [facility] Last Admin: 02/17/19 08:28 Dose: 300 mg Glycopyrrolate () Confirm Administered Dose 1 mg .ROUTE .STK-MED ONE Stop: 02/11/19 13:58 Guaifenesin/Phenylephrine HCl (Robitussin Dm) 10 ml PO Q4H PRN PRN Reason: Cough Last Admin: 02/12/19 17:18 Dose: 10 ml Haloperidol Lactate (Haldol) 1 mg IVPUSH ONETIME ONE Stop: 02/14/19 15:36 Last Admin: 02/14/19 18:48 Dose: Not Given Heparin Sodium (Porcine) (Heparin Sodium) 5,000 units SUBCUT Q8H [facility]UG[facility] Last Admin: 02/17/19 12:39 Dose: 5,000 units Hydralazine HCl (Apresoline) 20 mg IVPUSH Q4H PRN PRN Reason: Hypertension Hydromorphone HCl (Dilaudid) 1 mg IVPUSH ONETIME ONE Stop: 02/11/19 03:55 Last Admin: 02/11/19 04:09 Dose: 1 mg Hydromorphone HCl (Dilaudid) 0.5 mg IVPUSH Q2H PRN PRN Reason: Pain (severe 7-10) Last Admin: 02/14/19 13:33 Dose: 0.5 mg Hydromorphone HCl (Dilaudid) 0.5 mg IVPUSH Q15M PRN PRN Reason: Pain (severe 7-10) Hydromorphone HCl (Dilaudid) Confirm Administered Dose 0.5 mg .ROUTE .STK-MED ONE Stop: 02/14/19 16:34 Dextrose/Sodium Chloride (Dextrose 5%-Normal Saline) 1,000 mls @ 125 mls/hr IV ASDIRECTED [facility] Last Admin: 02/11/19 04:09 Dose: 125 mls/hr Linezolid 600 mg/ Premix 300 mls @ 300 mls/hr IV ONETIME ONE Stop: 02/11/19 05:26 Last Admin: 02/11/19 04:51 Dose: 300 mls/hr Vancomycin HCl 2 gm/ Sodium (Chloride) 500 mls @ 250 mls/hr IV ONETIME ONE Stop: 02/11/19 05:20 Last Admin: 02/11/19 06:07 Dose: 250 mls/hr Lactated Ringer's (Ringers, Lactated) 1,000 mls @ 125 mls/hr IV ASDIRECTED [facility] Last Admin: 02/12/19 11:41 Dose: 125 mls/hr Promethazine HCl 6.25 mg/ (Sodium Chloride) 50.25 mls @ 100 mls/hr IV Q6H PRN PRN Reason: Nausea/Vomiting Piperacillin Sod/Tazobactam (Sod 4.5 gm/ Sodium Chloride) 100 mls @ 200 mls/hr IV ONETIME ONE Stop: 02/11/19 09:29 Last Admin: 02/11/19 09:50 Dose: 200 mls/hr Piperacillin Sod/Tazobactam (Sod 4.5 gm/ Sodium Chloride) 100 mls @ 25 mls/hr IV Q8H [facility] Last Admin: 02/17/19 08:28 Dose: 25 mls/hr Vancomycin HCl 500 mg/ Sodium (Chloride) 250 mls @ 166.667 mls/hr IV Q12H [facility] Vancomycin HCl 1 gm/Vancomycin HCl 500 mg/ Sodium Chloride 500 mls @ 250 mls/ hr IV Q12H [facility] Last Admin: 02/12/19 18:09 Dose: Not Given Lactated Ringer's (Ringers, Lactated) Confirm Administered Dose 0 mls @ as directed .ROUTE .STK-MED ONE Stop: 02/11/19 12:35 Lidocaine HCl (Xylocaine-Mpf 1%) Confirm Administered Dose 2 mls @ as directed .ROUTE .STK-MED ONE Stop: 02/11/19 12:38 Magnesium Sulfate 4 gm/ Premix 50 mls @ 12.5 mls/hr IV ONETIME ONE Stop: 02/11/19 23:44 Last Admin: 02/11/19 20:23 Dose: 12.5 mls/hr Levofloxacin/Dextrose 750 mg/ (Premix) 150 mls @ 100 mls/hr IV Q24H [facility] Last Admin: 02/11/19 20:48 Dose: Not Given Sodium Chloride (Normal Saline) 500 mls @ 500 mls/hr IV .BOLUS ONE Stop: 02/12/19 18:56 Last Admin: 02/12/19 18:16 Dose: 500 mls/hr Vancomycin HCl 1 gm/Vancomycin HCl 500 mg/ Sodium Chloride 500 mls @ 250 mls/ hr IV Q12H [facility] Vancomycin HCl 1 gm/Vancomycin HCl 500 mg/ Sodium Chloride 500 mls @ 250 mls/ hr IV Q8H [facility] Last Admin: 02/16/19 04:20 Dose: 250 mls/hr Sodium Chloride (Normal Saline) 1,000 mls @ 100 mls/hr IV ASDIRECTED [facility] Last Admin: 02/13/19 14:23 Dose: 100 mls/hr Sodium Chloride (Normal Saline) 100 mls @ 75 mls/hr IV ASDIRECTED [facility] Last Admin: 02/13/19 15:01 Dose: 75 mls/hr Lidocaine HCl (Xylocaine-Mpf 1%) Confirm Administered Dose 6 mls @ as directed .ROUTE .STK-MED ONE Stop: 02/14/19 14:37 Lactated Ringer's (Ringers, Lactated) Confirm Administered Dose 2,000 mls @ as directed .ROUTE .STK-MED ONE Stop: 02/14/19 14:37 Sodium Chloride (Normal Saline) 25 mls @ 25 mls/hr IV ASDIRECTED [facility] Phenylephrine HCl 1 mg/ Sodium (Chloride) 10.1 mls @ 1 mls/sec IV TITRATE AUGIE; Protocol Sodium Chloride (Normal Saline) 1,000 mls @ 25 mls/hr IV ASDIRECTED [facility] Stop: 02/18/19 18:47 Last Admin: 02/14/19 19:49 Dose: 25 mls/hr Magnesium Sulfate 2 gm/ Premix 50 mls @ 25 mls/hr IV ONETIME ONE Stop: 02/16/19 13:32 Last Admin: 02/16/19 11:59 Dose: 25 mls/hr Iodine (Iodine 2% Mild Tincture) Confirm Administered Dose 30 ml .ROUTE .STK- MED ONE Stop: 02/14/19 16:22 Last Admin: 02/14/19 16:24 Dose: 18 ml Iopamidol (Isovue-370 (76%)) 100 ml IVPUSH ONETIME ONE Stop: 02/13/19 14:29 Last Admin: 02/13/19 15:00 Dose: 100 ml Iopamidol (Isovue-300 (61%)) 100 ml IVPUSH ONETIME ONE Stop: 02/14/19 12:50 Last Admin: 02/14/19 13:11 Dose: 100 ml Lorazepam (Ativan) 0.5 mg IV Q6H PRN PRN Reason: Anxiety Lorazepam (Ativan) 1 mg PO NOW STA Stop: 02/12/19 10:00 Last Admin: 02/12/19 10:16 Dose: 1 mg Metoclopramide HCl (Reglan) 10 mg IVPUSH ONETIME ONE Stop: 02/11/19 03:55 Last Admin: 02/11/19 04:07 Dose: 10 mg Metoprolol Tartrate (Lopressor) 5 mg IVPUSH Q4H PRN PRN Reason: Tachycardia Midazolam HCl (Versed 1 Mg/Ml) Confirm Administered Dose 2 mg .ROUTE .STK-MED ONE Stop: 02/11/19 12:35 Midazolam HCl (Versed 1 Mg/Ml) Confirm Administered Dose 2 mg .ROUTE .STK-MED ONE Stop: 02/14/19 14:38 Miscellaneous Information (Remove Patch) 0 ea TRDERM ONETIME ONE Stop: 02/14/19 13:31 Last Admin: 02/14/19 13:35 Dose: Not Given Miscellaneous Information (Remove Patch) 0 ea TRDERM ONETIME ONE Stop: 02/17/19 14:31 Last Admin: 02/17/19 14:34 Dose: Not Given Multivitamins (Thera) 1 each PO DAILY [facility] Last Admin: 02/17/19 08:28 Dose: 1 each Neostigmine Methylsulfate (Neostigmine) Confirm Administered Dose 5 mg .ROUTE .STK-MED ONE Stop: 02/11/19 13:58 Nystatin (Nystop) 1 gm TOP TID [facility] Last Admin: 02/17/19 08:33 Dose: 1 gm Ondansetron HCl (Zofran) 4 mg IV Q6H PRN PRN Reason: Nausea/Vomiting Last Admin: 02/13/19 20:55 Dose: 4 mg Ondansetron HCl (Zofran) Confirm Administered Dose 4 mg .ROUTE .STK-MED ONE Stop: 02/11/19 12:35 Ondansetron HCl (Zofran) Confirm Administered Dose 4 mg .ROUTE .STK-MED ONE Stop: 02/14/19 14:37 Ondansetron HCl (Zofran) 4 mg IVPUSH ONETIME PRN PRN Reason: Nausea/Vomiting Oxycodone HCl (Oxycodone) 5 mg PO Q4H PRN PRN Reason: Pain (moderate 4-6) Last Admin: 02/16/19 18:25 Dose: 5 mg Pantoprazole Sodium (Protonix) 40 mg PO Q12HR [facility] Last Admin: 02/17/19 08:28 Dose: 40 mg Phenylephrine HCl (Phenylephrine In Ns 100 Mcg/Ml) Confirm Administered Dose 1 mg .ROUTE .STK-MED ONE Stop: 02/14/19 15:37 Polyethylene Glycol (Miralax) 17 gm PO DAILY PRN PRN Reason: Constipation Potassium Chloride (Klor-Con M20) 60 meq PO ONETIME ONE Stop: 02/11/19 19:45 Last Admin: 02/11/19 20:21 Dose: 60 meq Potassium Chloride (Klor-Con M20) 40 meq PO ONETIME ONE Stop: 02/16/19 11:34 Last Admin: 02/16/19 12:03 Dose: 40 meq Promethazine HCl (Phenergan) 25 mg PO Q8H PRN PRN Reason: Nausea/Vomiting Last Admin: 02/13/19 20:28 Dose: 25 mg Propofol (Diprivan 20 Ml) Confirm Administered Dose 200 mg .ROUTE .STK-MED ONE Stop: 02/11/19 12:35 Propofol (Diprivan 20 Ml) Confirm Administered Dose 400 mg .ROUTE .STK-MED ONE Stop: 02/11/19 13:30 Propofol (Diprivan 20 Ml) Confirm Administered Dose 200 mg .ROUTE .STK-MED ONE Stop: 02/14/19 14:37 Rocuronium [place]urel (Zemuron) Confirm Administered Dose 50 mg .ROUTE .STK-MED ONE Stop: 02/11/19 12:35 Rocuronium [place]urel (Zemuron) Confirm Administered Dose 50 mg .ROUTE .STK-MED ONE Stop: 02/14/19 14:37 Scopolamine (Transderm-Scop) 1.5 mg TOP ONETIME ONE Stop: 02/11/19 10:20 Last Admin: 02/11/19 10:35 Dose: 1.5 mg Scopolamine (Transderm-Scop) 1.5 mg TRDERM ONETIME [facility] Last Admin: 02/11/19 13:36 Dose: 1.5 mg Scopolamine (Transderm-Scop) 1.5 mg TRDERM ONETIME ONE Stop: 02/14/19 14:31 Last Admin: 02/14/19 14:40 Dose: 1.5 mg Senna/Docusate Sodium (Senna Plus) 1 tab PO BID PRN PRN Reason: Constipation Sodium Chloride (Saline Flush) 10 ml FLUSH ASDIRECTED PRN PRN Reason: Keep Vein Open Last Admin: 02/14/19 13:11 Dose: 10 ml Succinylcholine Chloride (Succinylcholine In Ns Pf) Confirm Administered Dose 100 mg .ROUTE .STK-MED ONE Stop: 02/14/19 14:37 Temazepam (Restoril) 15 mg PO BEDTIME PRN PRN Reason: Sleep Valacyclovir HCl (Valtrex) 1,000 mg PO TID [facility] Last Admin: 02/17/19 08:28 Dose: 1,000 mg Vancomycin HCl (Pharmacy To Dose - Vancomycin) 1 dose .XX ASDIRECTED [facility] Vancomycin HCl (Pharmacy To Dose - Vancomycin) 0 dose .XX ASDIRECTED PRN PRN Reason: RX TO DOSE VANCOMYCIN Vancomycin HCl (Vancomycin) Confirm Administered Dose 1 gm .ROUTE .STK-MED ONE Stop: 02/14/19 16:00 Last Admin: 02/14/19 16:15 Dose: 1 gm Zolpidem Tartrate (Ambien) 5 mg PO BEDTIME [facility] Last Admin: 02/16/19 20:34 Dose: 5 mg
== END 2019-02-17 15:00 | disposition home or self-care (01) | DRG 853 ==
LOC: JD.ED 03:07 → JD.MS 07:20 → JD.ICU 07:46
PROVIDERS: ADMIT Orthopaedic Surgery; ATTEND Orthopaedic Surgery
PROC: 0SPB09Z Removal of Liner from Left Hip Joint, Open Approach (ICD-10-PCS; principal; 2019-02-14)
PROC: 0SUB09Z Supplement Left Hip Joint with Liner, Open Approach (ICD-10-PCS; 2019-02-14)
PROC: 0SRS0JZ Replacement of Left Hip Joint, Femoral Surface with Synthetic Substitute, Open Approach (ICD-10-PCS; 2019-02-14)
PROC: 0SPS0JZ Removal of Synthetic Substitute from Left Hip Joint, Femoral Surface, Open Approach (ICD-10-PCS; 2019-02-14)
PROC: 02H633Z Insertion of Infusion Device into Right Atrium, Percutaneous Approach (ICD-10-PCS; 2019-02-16)
DX: A41.9 Sepsis, unspecified organism (principal); J18.1 Lobar pneumonia, unspecified organism; D72.828 Other elevated white blood cell count; F50.9 Eating disorder, unspecified; L03.116 Cellulitis of left lower limb; J44.0 Chronic obstructive pulmonary disease with (acute) lower respiratory infection; L02.31 Cutaneous abscess of buttock; E87.1 Hypo-osmolality and hyponatremia; H54.7 Unspecified visual loss; Z89.029 Acquired absence of unspecified finger(s); Z89.449 Acquired absence of unspecified ankle; E78.5 Hyperlipidemia, unspecified; K21.9 Gastro-esophageal reflux disease without esophagitis; H91.90 Unspecified hearing loss, unspecified ear; E78.00 Pure hypercholesterolemia, unspecified; F17.210 Nicotine dependence, cigarettes, uncomplicated; E87.6 Hypokalemia; E83.42 Hypomagnesemia; B95.4 Other streptococcus as the cause of diseases classified elsewhere; M21.372 Foot drop, left foot; X58.XXXD Exposure to other specified factors, subsequent encounter; Z99.81 Dependence on supplemental oxygen; S72.002D Fracture of unspecified part of neck of left femur, subsequent encounter for closed fracture with routine healing; Z79.82 Long term (current) use of aspirin; Z98.890 Other specified postprocedural states; Z85.46 Personal history of malignant neoplasm of prostate; Z88.5 Allergy status to narcotic agent; Z79.899 Other long term (current) drug therapy
CPT/HCPCS: 36415; 71045; 73700; 80053; 83605; 83735; 83880; 85007; 85027; 85610; 85652; 85730; 86140; 86850; 86900; 86901; 87040 ×2; 93005; 96361; 96365; 96366; 96367; 96375; 99285; A9270; J1170; J2020; J2765; J3370; J7040; J7042; 00300; 36569; 71275; 71275-26; 73702-26-LT; 73702-LT; 80048; 80202; 81001; 85025; 85379; 86787; 87075; 87077; 87086; 87181; 87184; 87205; 87220; 93010; 94640; 97110-GP; 97116-GP; 97161-GP; 97165-GO; 97530-GO; C1713; C1751; C1776; J0330; J1100; J1200; J1644; J2001; J2250; J2370; J2405; J2543; J2704; J2710; J3010; J3475; J7030; J7120; J8597; Q9967

== ENCOUNTER 2020-10-26 13:24 | Emergency (ER) | payer MEDICARE, BC ==
[2020-10-26] MEDS ORDERED: Lidocaine 1% 50 ML MDV ONE (15:27)
--- NOTE | 2020-10-26 15:37 | EDM.PDOC ---
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 He lost his balance and the unit kicked back from the steel laceration his L proximal forearm. Unsure of last tetanus. There was a fair amt of bleeding initial but he has been able to control the bleeding with pressure. Left Middle Anterior Arm Pain Score (Numeric/FACES): 5 - Related Data Allergies Allergy/AdvReac Type Severity Reaction Status Date / Time morphine Allergy Severe Difficulty Verified 10/26/20 14:08 Breathing lorazepam [From Ativan] AdvReac Mild Hallucinati Verified 10/27/20 12:24 ons Home Meds: Home Meds Gabapentin [Neurontin] 600 mg PO DAILY 02/11/19 [History] Aspirin 325 mg PO BID #84 tablet 02/17/19 [Rx] oxyCODONE 5 mg PO Q4H PRN #40 tablet 02/17/19 [Rx] Past Medical History HEENT History: Reports: Hard of Hearing, Impaired Vision Cardiovascular History: Reports: High Cholesterol Other Cardiovascular History: statins made muscle aches Respiratory History: Reports: None Gastrointestinal History: Reports: GERD, Other (See Below) Other Gastrointestinal History: Inguinal hernia Genitourinary History: Reports: Other (See Below) Other Genitourinary History: prostate cancer- had surgery- clear Musculoskeletal History: Reports: Other (See Below) Other Musculoskeletal History: back surgery; 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 Neurological History: Reports: Other (See Below) Oncologic (Cancer) History: Reports: Prostate - Infectious Disease History Infectious Disease History: Reports: Chicken Pox, Mumps, Scarlet Fever - Past Surgical History HEENT Surgical History: Reports: Naso-Sinus Surgery Cardiovascular Surgical History: Reports: None GI Surgical History: Reports: Hernia, Inguinal Other Male Surgeries/Procedures: prostate cancer Neurological Surgical History: Reports: Other (See Below) Musculoskeletal Surgical History: Reports: Shoulder Surgery, Other (See Below) Other Musculoskeletal Surgeries/Procedures:: ankle surgery Oncologic Surgical History: Reports: Lumpectomy Social & Family History - Family History Family Medical History: No Pertinent Family History Cardiac: Reports: Hypertension Other Cardiac Family History: Brother had stroke Neurological: Reports: CVA - Tobacco Use Tobacco Use Status *Q: Current Some Day Tobacco User Years of Tobacco use: 50 Packs/Tins Daily: 0.2 - Caffeine Use Caffeine Use: Reports: Coffee Other Caffeine Use: 2-3 cups - Recreational Drug Use Recreational Drug Use: No - Living Situation & Occupation Occupation: Retired Review of Systems - Review of Systems Review Of Systems: See Below Respiratory: Reports: No Symptoms Cardiovascular: Reports: No Symptoms GI/Abdominal: Denies: Nausea, Vomiting Musculoskeletal: Reports: Other (forearm lac) Neurological: Denies: Numbness, Tingling, Weakness ED EXAM, GENERAL - Physical Exam Exam: See Below General Appearance: Alert, No Apparent Distress Head: Atraumatic Neck: Supple Respiratory/Chest: No Respiratory Distress Extremities: Other (4 to 5 cm deep gaping horizontal lac volar proximal L forearm, mild oozing of blood when pressure released at time of my exam) Neurological: Alert, Oriented, No Motor/Sensory Deficits Skin Exam: Warm, Dry ED TRAUMA EXTREMITY PROCEDURES - Laceration/Wound Repair Left Lower Arm Lac/Wound Length In cm: 4 Appearance: Linear, Other (moderately deep, gaping) Anesthetic Type: Local Local Anesthesia - Lidocaine (Xylocaine): 1% Plain Skin Prep: Saline Exploration/Debridement/Repair: Wound Explored, Minimal Debridement Suture Size: 3-0 # of Sutures: 14 Suture Type: Nylon Suture Size: 4-0 # of Sutures: 3 Repaired With: Vicryl Course - Vital Signs Last Recorded V/S: Last Vital Signs Temp 98.1 F 10/26/20 18:13 Pulse 70 10/26/20 18:13 Resp 20 10/26/20 14:03 BP 130/78 10/26/20 18:13 Pulse Ox 99 10/26/20 18:13 - Orders/Labs/Meds Meds: Medications Discontinued Medications Generic Name Dose Route Start Last Admin Trade Name Freq PRN Reason Stop Dose Admin Diphtheria/Tetanus/Acell Pertussis 0.5 ml 10/26/20 17:11 10/26/20 17:25 Diphtheria,Pertussis(Acell),Tetanus Vaccine 0.5 Ml Syringe IM 10/26/20 17:12 Not Given .ONCE ONE Diphtheria/Tetanus/Acell Pertussis 0.5 ml 10/26/20 17:26 10/26/20 17:35 Diphtheria,Pertussis(Acell),Tetanus Vaccine 0.5 Ml Syringe IM 10/26/20 17:27 0.5 ml .ONCE ONE Administration Lidocaine HCl Confirm 10/26/20 15:27 10/26/20 16:02 Lidocaine 1% 50 Ml Mdv Administered 10/26/20 15:28 Not Given Dose 50 ml .ROUTE .STK-MED ONE Lidocaine HCl 50 ml 10/26/20 16:02 10/26/20 16:16 Lidocaine 1% 50 Ml Mdv INJECT 10/26/20 16:03 50 ml ONETIME ONE Administration Departure - Departure Time of Disposition: 17:15 Disposition: Home, Self-Care 01 Condition: Fair Clinical Impression: Forearm laceration Qualifiers: Encounter type: initial encounter Laterality: left Qualified Code(s): S51.812A - Laceration without foreign body of left forearm, initial encounter - Discharge Information Instructions: Laceration Care, Adult Referrals: Justyna Nuno MD [Primary Care Provider] - Forms: ED Department Discharge Additional Instructions: Laceration care instr. Stitches out in 12 days. Leave pressure dressing on for 2 days and than change daily. Have rechecked any sign of infection Sepsis Event Note (ED) - Evaluation Sepsis Screening Result: No Definite Risk
[2020-10-26] MEDS ORDERED: Lidocaine 1% 50 ML MDV INJECT ONE (16:02)
[2020-10-26] MEDS ORDERED: Diphtheria,Pertussis(Acell),Tetanus Vaccine 0.5 ML Syringe IM ONE ×2 (17:11→17:26)
[2020-10-26 18:15] VITALS: BP 130/78; PULSE 70
== END 2020-10-26 18:05 | disposition home or self-care (01) ==
LOC: JD.ED 13:24
DX: S51.812A Laceration without foreign body of left forearm, initial encounter (principal); Z88.5 Allergy status to narcotic agent; Z88.6 Allergy status to analgesic agent; Z23 Encounter for immunization; Z79.82 Long term (current) use of aspirin; Z72.0 Tobacco use; W26.8XXA Contact with other sharp object(s), not elsewhere classified, initial encounter
CPT/HCPCS: 12002; 90471; 90715; 99282; J2001

== ENCOUNTER 2022-12-07 07:01 | Emergency (ER) | payer MEDICARE, BC ==
[2022-12-07] MEDS ORDERED: Fluorescein 1 MG Ophth Strip ONE (07:28)
[2022-12-07] MEDS ORDERED: Fluorescein 1 MG Ophth Strip EYERT ONE (07:40)
[2022-12-07] MEDS ORDERED: prednisoLONE Acetate 1% Ophth Susp 5 ML Bottle EYERT SCH (09:00)
[2022-12-07 09:29] VITALS: BP 132/81; PULSE 72
== END 2022-12-07 09:27 | disposition home or self-care (01) ==
LOC: JD.ED 07:01
DX: H57.89 Other specified disorders of eye and adnexa (principal); Z79.82 Long term (current) use of aspirin
CPT/HCPCS: 99283; A9270-GY